=== PATIENT | female | born 1930 | race Caucasian/White ===

== ENCOUNTER 2016-07-09 22:43 | Inpatient (IN) | payer OTHER, MEDICARE ==
[~2016-07-09] VITALS: Ht 160 cm; Wt 72.0 kg
[~2016-07-09 22:43] MED LIST: ADVA250A INH; ADVAI250I INH; AGGR20025 PO; COLA100C PO; DUONI INH; DUONI NEB; FISH1000 PO; FURO20 PO; GUAI600 PO; HEPA10KP SQ; KCL10C PO; LEVO.05 PO; NYSTT TOP; OMEP20CA5 PO; PRED20 PO; THERM PO; TIOT18I INH; Z.0.OXYGEN INH; Z.0.OXYGENDME NC
[2016-07-09 22:45] VITALS: O2SAT 100
[2016-07-09 22:47] VITALS: BP 144/66; PULSE 97; RESP 3; RESP 30; TEMP 98.1; O2SAT 99
[2016-07-09] MEDS ORDERED: methylPREDNISolone SOD SUCC 125 MG/2 ML VIAL IVP ONE (23:15)
[2016-07-09] MEDS ORDERED: LEVOFLOXACIN 750 MG PREMIX INJ 150 ML IV ONE (23:15)
[2016-07-09] MEDS: RESP: ALBUTEROL 2.5 MG/IPRATROPIUM 0.5 MG NEB (SCH) INH (23:27)
[2016-07-09 23:36] LABS: AUTOMATED NEUTROPHIL # 7.4 TH/MM3 (1.8-7.7); BASOPHIL % 0.2 % (0.0-2.0); EOSINOPHIL # 0.4 TH/MM3 (0-0.4); EOSINOPHIL % 4.2 % (0.0-4.0); HEMATOCRIT 37.5 % (35.0-46.0); HEMO FLAGS DIFF FINAL; LYMPH % 7.1 % (9.0-44.0); LYMPHOCYTE # 0.7 TH/MM3 (1.0-4.8); MEAN CELL VOLUME 81.9 FL (80.0-100.0); MEAN CORPUSCULAR HEMOGLOBIN 25.3 PG (27.0-34.0); MEAN CORPUSCULAR HGB CONC 30.8 % (32.0-36.0); MONO % 8.4 % (0.0-8.0); NEUT % 80.1 % (16.0-70.0); PLATELET COUNT 207 TH/MM3 (150-450); RED BLOOD COUNT 4.58 MIL/MM3 (4.00-5.30); RED CELL DISTRIBUTION WIDTH 17.5 % (11.6-17.2); WHITE BLOOD COUNT 9.3 TH/MM3 (4.0-11.0)
--- NOTE | 2016-07-09 23:37 | RADRPT ---
EXAM DATE/TIME: 07/09/2016 23:06 [place] COMPARISON: CHEST SINGLE AP, September 27, 2014, 8:00. CHEST SINGLE AP, October 01, 2014, 6:30. INDICATIONS : Shortness of breath. MEDICAL HISTORY : Congestive heart failure. Chronic obstructive pulmonary disease. Emphysema. SURGICAL HISTORY : None. ENCOUNTER: Initial ACUITY: 1 day PAIN SCORE: Non-responsive. LOCATION: Bilateral chest FINDINGS: A single AP erect view of the chest was obtained and demonstrates coarse opacity at the right medial lung base. The lungs appear hyperinflated and there is mild cardiomegaly. Atherosclerotic changes are present in the aorta with no perihilar edema. There is no definite effusion. There are multiple over lying electrocardiogram leads and oxygen tubing. CONCLUSION: 1. Coarse opacity at the right medial lung base most consistent with scarring. 2. Mild cardiomegaly with no pulmonary edema. Kahlil Mora MD on July 09, 2016 at 23:34 Board Certified Radiologist. This report was verified electronically.
[2016-07-09] MEDS: SODIUM CHLORIDE 0.9% FLUSH 5 ML FLUSH IVF PRN (23:41)
[2016-07-09 23:47] LABS: APTT (PATIENT) 27.3 SEC (24.3-30.1); PROTHROMBIN TIME - PATIENT 11.2 SEC (9.8-11.6)
[2016-07-09] MEDS ORDERED: FURO20TA PO (23:52)
[2016-07-09] MEDS ORDERED: BIOT50005 PO (23:52)
[2016-07-09] MEDS ORDERED: FISHCAP4 PO (23:52)
[2016-07-09] MEDS ORDERED: PRED5TAB PO (23:52)
[2016-07-09] MEDS ORDERED: ASPI-110 PO (23:52)
[2016-07-09] MEDS ORDERED: IPRASOL INH (23:52)
[2016-07-09] MEDS ORDERED: POTA10CA PO (23:52)
[2016-07-09] MEDS ORDERED: VITA500C9 CHEW (23:52)
[2016-07-09] MEDS ORDERED: DOCU100C PO (23:52)
[2016-07-09] MEDS ORDERED: OMEP20TA PO (23:52)
[2016-07-09] MEDS ORDERED: AGGR20025 PO (23:52)
[2016-07-09] MEDS ORDERED: LEVEMIR SQ (23:52)
[2016-07-09] MEDS ORDERED: MUCI30TA2 PO (23:52)
[2016-07-09] MEDS ORDERED: MULT-120 PO (23:52)
[2016-07-09] MEDS ORDERED: PRAV40TA2 PO (23:52)
[2016-07-09 23:57] LABS: ANION GAP 6 MEQ/L (5-15); AST (GOT) 69 U/L (15-37); BICARBONATE 35.9 MEQ/L (21.0-32.0); BLOOD UREA NITROGEN 15 MG/DL (7-18); CHLORIDE 97 MEQ/L (98-107); GLOMERULAR FILTRATION RATE 37 ML/MIN (>89); POTASSIUM 5.3 MEQ/L (3.5-5.1); SODIUM (NA) 139 MEQ/L (136-145)
[2016-07-10] VITALS (18 sets, daily range): BP systolic 112–151; BP diastolic 56–80; PULSE 76–99; RESP 18–32; TEMP 97.4–98.9; O2SAT 93–100
[2016-07-10 00:06] LABS: ALKALINE PHOSPHATASE 92 U/L (45-117); ALT (GPT) 39 U/L (10-53); CREATINE KINASE 129 U/L (26-192); TOTAL BILIRUBIN ADULT 0.6 MG/DL (0.2-1.0)
[2016-07-10 00:33] LABS: BLOOD, URINE NEG (NEG); COMMENT (UR) CULT NOT INDICATED; CULTURE IF INDICATED CULT NOT INDICATED; GLUCOSE,URINE NEG (NEG); GRANULAR CAST, URINE 1 /lpf; HYALINE CAST, URINE 5 /lpf (RARE); KETONE, URINE NEG (NEG); NITRITE,URINE NEG (NEG); PH, URINE 5.5 (5.0-8.5); URINE COLOR LIGHT-YELLOW (YELLW/STRAW)
[2016-07-10 00:39] LABS: CKMB 0.9 NG/ML (0.5-3.6)
--- NOTE | 2016-07-10 01:01 | PD ---
HPI Chief Complaint: Respiratory Distress Time Seen by Provider: 22:53 Travel History International Travel<30 days: No Contact w/Intl Traveler<30days: No Traveled to known affect area: No History of Present Illness HPI Patient is an 85-year-old female with history of COPD, CHF, who comes in complaining of shortness of breath. She has been feeling short of breath for the past 2 days, and got worse today. Per EMS her oxygen saturation on arrival on room air was in the 70s. She improved to the high 80s/low 90s on CPAP. Per EMS she had some wheezing and crackles in her lungs. She was given 3 albuterol treatments by EMS, no steroids. She denies any chest pain. She has noticed some swelling in her legs. She denies any nausea or vomiting. She denies any abdominal pain. She has had multiple issues with breathing in the past, her last admission she required intubation. She states she does not want to be intubated if she has difficulty with breathing. Her daughter reports that she had a fever earlier this week, but that has resolved. She does have a sick contact with her great granddaughter visited with a cold. PFSH Past Medical History Arthritis: Yes Asthma: Yes Autoimmune Disease: No Blood Disorders: No Anxiety: No Depression: No Heart Rhythm Problems: Yes Cancer: No Cardiovascular Problems: Yes (chf) High Cholesterol: Yes Chemotherapy: No Chest Pain: Yes Congestive Heart Failure: Yes COPD: Yes Cerebrovascular Accident: Yes Diabetes: Yes Patient Takes Glucophage: No Diminished Hearing: No Endocrine: Yes Gastrointestinal Disorders: No GERD: No Genitourinary: No Headaches: No Hepatitis: No Hiatal Hernia: No Hypertension: Yes Immune Disorder: No Implanted Vascular Access Dvce: No Kidney Stones: No Musculoskeletal: Yes Neurologic: Yes Psychiatric: No Reproductive: No Migraines: No Myocardial Infarction: No Radiation Therapy: No Renal Failure: No Seizures: No Sickle Cell Disease: No Sleep Apnea: No Thyroid Disease: No Ulcer: No PNEUMOCCOCAL Vaccine (Year): 1 ?: Not Menopausal: Yes Past Surgical History Abdominal Surgery: Yes (EXPLORATORY LAP EXCISION OF FLOATING TUMOR) AICD: No Appendectomy: No Arteriovenous Shunt: No Cardiac Surgery: No Cholecystectomy: No Ear Surgery: No Endocrine Surgery: No Eye Surgery: Yes (BILATERAL cataracts removed) Genitourinary Surgery: No Gynecologic Surgery: Yes (HYSTERECTOMY-TOTAL) Hysterectomy: Yes Insulin Pump: No Joint Replacement: No Neurologic Surgery: No Oral Surgery: No Pacemaker: No Thoracic Surgery: No Other Surgery: Yes Social History Alcohol Use: No Tobacco Use: No (quit a long time ago) Substance Use: No Allergies-Medications (Allergen,Severity, Reaction): Coded Allergies: Penicillin (Verified Allergy, Severe, Hives, 09/19/14) Vitamin B12 (Verified Allergy, Severe, ALLERGIC TO SHOT ONLY - HIVES, ) Reported Meds & Prescriptions Reported Meds & Active Scripts Active Reported Pravastatin 40 Mg Tab 40 Mg PO DAILY Prednisone 5 Mg Tab 5 Mg PO DAILY Biotin 5,000 Mcg Cap 10,000 Mcg PO DAILY Vitamin C (Ascorbic Acid) 500 Mg Chew 500 Mg CHEW DAILY Aspirin 81 (Aspirin) 81 Mg Tabdr 81 Mg PO DAILY Aggrenox (Dipyridamole/Aspirin) 200-25 Mg Cap 1 Cap PO BID Duoneb (Ipratropium-Albuterol Neb) 0.5-2.5 Mg/3 Ml Neb 1 Nebule INH Q8HR NEB Levemir Inj (Insulin Detemir) 1,000 unit/ 10 ML Vial 9 Units SQ HS Do not mix with any other Insulin. Potassium Chloride ER (Potassium Chloride) 10 Meq Cap 10 Meq PO BID Furosemide 20 Mg Tab 20 Mg PO BID Omeprazole 20 Mg Tab 20 Mg PO DAILY Fish Oil + D3 (Fish Oil-Cholecalciferol) 1,200-1,000 Mg-Unit Cap 1 Cap PO BID Multivitamin Women (Multiple Vitamins W/ Minerals) 1 Tab Tab 1 Tab PO DAILY Docusate Sodium 100 Mg Cap 100 Mg PO DAILY Mucinex DM (Dextromethorphan-Guaifenesin) 30-600 Mg Tab 1 Tab PO BID PRN Review of Systems Except as stated in HPI: all other systems reviewed are Neg General / Constitutional: Positive: Fever HENT: No: Headaches, Lightheadedness Cardiovascular: No: Chest Pain or Discomfort Respiratory: Positive: Shortness of Breath, Wheezing Gastrointestinal: No: Nausea, Vomiting, Abdominal Pain Musculoskeletal: Positive: Edema, No: Pain Skin: No Rash, No Change in Pigmentation Neurologic: No: Weakness, Dizziness Physical Exam Narrative GENERAL: Awake and alert, appears lethargic. SKIN: Warm and dry. HEAD: Atraumatic. Normocephalic. EYES: Pupils equal and round. No scleral icterus. ENT: Mucous membranes pink and moist. NECK: Trachea midline. No JVD. CARDIOVASCULAR: Regular rate and rhythm. No murmur appreciated. RESPIRATORY: Diffuse wheezing throughout both lungs. Tachypnea. GASTROINTESTINAL: Abdomen soft, non-tender, nondistended. MUSCULOSKELETAL: No obvious deformities. No clubbing. No cyanosis. Bilateral 2 + pitting edema of the lower extremities. No calf tenderness. NEUROLOGICAL: Awake and alert. No obvious cranial nerve deficits. Motor grossly within normal limits. Normal speech. PSYCHIATRIC: Appropriate mood and affect; insight and judgment normal. Data Data Last Documented VS Vital Signs Date Time Temp Pulse Resp B/P Pulse Ox O2 Delivery O2 Flow Rate FiO2 07/10/16 00:30 99 CPAP 60 07/10/16 00:00 95 18 125/69 07/09/16 22:47 98.1 Orders Complete Blood Count With Diff (07/09/16 23:) Comprehensive Metabolic Panel (07/09/16 23:) B-Type Natriuretic Peptide (07/09/16 23:) Act Partial Throm Time (Ptt) (07/09/16 23:) Prothrombin Time / Inr (Pt) (07/09/16 23:01) Ckmb (Isoenzyme) Profile (07/09/16 23:) Troponin I (07/09/16 23:01) Urinalysis - C+S If Indicated (07/09/16 23:) Ua Includes Microscopic (07/09/16 23:) Blood Culture (07/09/16 23:01) Iv Access Insert/Monitor (07/09/16 23:) Electrocardiogram (07/09/16 23:) Ecg Monitoring (07/09/16 23:) Oximetry (07/09/16 23:01) Oxygen Administration (07/09/16 23:01) Chest, Single Ap (07/09/16 23:01) Cath For Specimen (07/09/16 23:01) Sodium Chloride 0.9% Flush (Ns Flush) (07/09/16 23:15) Methylprednisolone So Succ Inj (Solumedr (07/09/16 23:15) Albuterol-Ipratropium Neb (Duoneb Neb) (07/09/16 23:15) Levofloxacin 750 Mg Premix Inj (Levaquin (07/09/16 23:15) Lactic Acid (07/09/16 23:01) CKMB (07/09/16 23:09) CKMB% (07/09/16 23:09) Labs Laboratory Tests Test 07/09/16 07/09/16 07/10/16 23:09 23:22 00:05 Prothrombin Time 11.2 SEC Prothromb Time International 1.0 RATIO Ratio Activated Partial 27.3 SEC Thromboplast Time White Blood Count 9.3 TH/MM3 Red Blood Count 4.58 MIL/MM3 Hemoglobin 11.6 GM/DL Hematocrit 37.5 % Mean Corpuscular Volume 81.9 FL Mean Corpuscular Hemoglobin 25.3 PG Mean Corpuscular Hemoglobin 30.8 % Concent Red Cell Distribution Width 17.5 % Platelet Count 207 TH/MM3 Mean Platelet Volume 9.8 FL Neutrophils (%) (Auto) 80.1 % Lymphocytes (%) (Auto) 7.1 % Monocytes (%) (Auto) 8.4 % Eosinophils (%) (Auto) 4.2 % Basophils (%) (Auto) 0.2 % Neutrophils # (Auto) 7.4 TH/MM3 Lymphocytes # (Auto) 0.7 TH/MM3 Monocytes # (Auto) 0.8 TH/MM3 Eosinophils # (Auto) 0.4 TH/MM3 Basophils # (Auto) 0.0 TH/MM3 CBC Comment DIFF FINAL Differential Comment Sodium Level 139 MEQ/L Potassium Level 5.3 MEQ/L Chloride Level 97 MEQ/L Carbon Dioxide Level 35.9 MEQ/L Anion Gap 6 MEQ/L Blood Urea Nitrogen 15 MG/DL Creatinine 1.36 MG/DL Estimat Glomerular Filtration 37 ML/MIN Rate Random Glucose 151 MG/DL Calcium Level 8.3 MG/DL Total Bilirubin 0.6 MG/DL Aspartate Amino Transf 69 U/L (AST/SGOT) Alanine Aminotransferase 39 U/L (ALT/SGPT) Alkaline Phosphatase 92 U/L Total Creatine Kinase 129 U/L Creatine Kinase MB 0.9 NG/ML Troponin I LESS THAN 0.02 NG/ML B-Type Natriuretic Peptide 99 PG/ML Total Protein 7.9 GM/DL Albumin 3.3 GM/DL Lactic Acid Level 1.8 mmol/L Urine Color LIGHT-YELLOW Urine Turbidity CLEAR Urine pH 5.5 Urine Specific [place] 1.007 Urine Protein NEG mg/dL Urine Glucose (UA) NEG mg/dL Urine Ketones NEG mg/dL Urine Occult Blood NEG Urine Nitrite NEG Urine Bilirubin NEG Urine Urobilinogen LESS THAN 2.0 MG/DL Urine Leukocyte Esterase NEG Urine RBC LESS THAN 1 /hpf Urine WBC LESS THAN 1 /hpf Urine Hyaline Casts 5 /lpf Urine Granular Casts 1 /lpf Microscopic Urinalysis Comment CULT NOT INDICATED MDM Medical Decision Making Medical Screen Exam Complete: Yes Emergency Medical Condition: Yes Medical Record Reviewed: Yes Interpretation(s) ECG shows sinus rhythm at 90. No ST elevation. Normal intervals. Differential Diagnosis COPD exacerbation versus pneumonia versus CHF versus ACS Narrative Course Patient is an 85-year-old female who comes in complaining of shortness of breath. Patient is on BiPAP, was started on CPAP by EMS. Lungs show diffuse wheezing. Patient connected to the shirring machine operator, IV was established by EMS. Labs sent show no acute abnormalities. Chest x-ray performed shows cardiomegaly, no infiltrates. Patient given 2 DuoNeb nebs as well as 125 mg of Solu-Medrol. She received 3 albuterol treatments by EMS. Given Levaquin due to history of fever earlier this week. Patient was also given 63 mg of Lasix by EMS prior to arrival. Patient improved on BiPAP. She became more awake and alert. Patient admitted for further management. Diagnosis Primary Impression: COPD (chronic obstructive pulmonary disease) Qualified Code: J44.1 - Chronic obstructive pulmonary disease with acute exacerbation Admitting Information Admitting Physician Requests: it Ruma Palacios MD Jul 10, 2016 01:01
[2016-07-10] MEDS ORDERED: SODIUM CHLORID 0.9% 500 ML INJ 500 ML IV ONE (01:30)
[2016-07-10] MEDS ORDERED: DEXTROSE 50% IN WATER 50 ML VIAL(D50) IV PUSH PRN (01:30)
[2016-07-10] MEDS ORDERED: RESP: ALBUTEROL 1.25 MG/3 ML NEB (PRN) NEB (01:30)
[2016-07-10] MEDS ORDERED: GLUCAGON 1 MG/ML VIAL OTHER PRN (01:30)
--- NOTE | 2016-07-10 01:35 | HHI.HP ---
[facility] Service [place] [facility] Primary Care Physician Jeff Olivas MD Admission Diagnosis copd exacerbation Diagnoses: (1) COPD with acute exacerbation Diagnosis: Principal Chief Complaint: shortness of breath Travel History International Travel<30 Days: No Contact w/Intl Traveler <30 Da: No Traveled to Known Affected Are: No History of Present Illness patient is a 85 y/o female who was brought to ER with worsening sob. she says that she's had difficulty breathing for about a week. she has productive cough of yellowish sputum. she reports on and off fever over the past few days.according to ER, she was found to have a O2 sat of 70's at the time of EMS arrival- she was on BiPaP at the time of my evaluation.she was noted to have a rash on the chest and abdomen and she's complaining of itching over these areas. Review of Systems Constitutional: COMPLAINS OF: Fever, DENIES: Weight loss, Chills, Night Sweats Eyes: DENIES: Blurred vision, Diplopia, Vision loss, Double Vision Ears, nose, mouth, throat: DENIES: Tinnitus, Vertigo, Throat pain, Epistaxis Respiratory: COMPLAINS OF: Cough, Sputum production, Shortness of breath Cardiovascular: DENIES: Chest pain, Palpitations, Syncope, Dyspnea on Exertion , PND, Lower Extremity Edema, Orthopnea, Claudication Gastrointestinal: DENIES: Abdominal pain, Black stools, Bloody stools, Constipation, Diarrhea, Nausea, Vomiting, Difficulty Swallowing, Anorexia Genitourinary: DENIES: Urinary frequency, Urgency, Hematuria, Dysuria Musculoskeletal: DENIES: Joint pain, Muscle aches, Stiffness, Joint Swelling Integumentary: COMPLAINS OF: Abnormal pigmentation, DENIES: Rash Neurologic: DENIES: Abnormal gait, Headache, Localized weakness, Paresthesias, Seizures, Speech Problems, Tremor, Poor Balance Psychiatric: DENIES: Anxiety, Confusion, Mood changes, Depression, Hallucinations, Agitation, Suicidal Ideation, Homicidal Ideation, Delusions Past Family Social History Past Medical History hypertension diabetes mellitus COPD dyslipidemia history of CVA Past Surgical History cataract surgery hysterectomy Reported Medications Pravastatin 40 Mg Tab 40 Mg PO DAILY Prednisone 5 Mg Tab 5 Mg PO DAILY Biotin 5,000 Mcg Cap 10,000 Mcg PO DAILY Vitamin C (Ascorbic Acid) 500 Mg Chew 500 Mg CHEW DAILY Aspirin 81 (Aspirin) 81 Mg Tabdr 81 Mg PO DAILY Aggrenox (Dipyridamole/Aspirin) 200-25 Mg Cap 1 Cap PO BID Duoneb (Ipratropium-Albuterol Neb) 0.5-2.5 Mg/3 Ml Neb 1 Nebule INH Q8HR NEB Levemir Inj (Insulin Detemir) 1,000 unit/ 10 ML Vial 9 Units SQ HS Do not mix with any other Insulin. Potassium Chloride ER (Potassium Chloride) 10 Meq Cap 10 Meq PO BID Furosemide 20 Mg Tab 20 Mg PO BID Omeprazole 20 Mg Tab 20 Mg PO DAILY Fish Oil + D3 (Fish Oil-Cholecalciferol) 1,200-1,000 Mg-Unit Cap 1 Cap PO BID Multivitamin Women (Multiple Vitamins W/ Minerals) 1 Tab Tab 1 Tab PO DAILY Docusate Sodium 100 Mg Cap 100 Mg PO DAILY Mucinex DM (Dextromethorphan-Guaifenesin) 30-600 Mg Tab 1 Tab PO BID PRN Allergies: Coded Allergies: Penicillin (Verified Allergy, Severe, Hives, 09/19/14) Vitamin B12 (Verified Allergy, Severe, ALLERGIC TO SHOT ONLY - HIVES, ) Active Ordered Medications Current Medications IV Flush (NS Flush) 2 ml UNSCH PRN IVF FLUSH AFTER USING IV ACCESS Last administered on 07/09/16at 23:41; Start 07/09/16 at 23:15 Methylprednisolone Sodium Succinate (SoluMEDROL INJ) 125 mg ONCE ONCE IVP Last administered on 07/09/16at 23:41; Start 07/09/16 at 23:15; Stop 07/09/16 at 23:16; Status DC Albuterol/ Ipratropium 1 ampule 1 ampule Q15M INH Last administered on at 23:27; Start 07/09/16 at 23:15; Stop 07/09/16 at 23:31; Status DC Levofloxacin/ Dextrose (Levaquin 750 Mg Premix Inj) 150 ml @ 100 mls/hr ONCE ONCE IV Last administered on 07/09/16at 23:40; Start 07/09/16 at 23:15; Stop 07/10/16 at 00:44; Status DC Social History quit smoking years ago. lives with the daughter. Physical Exam Vital Signs Vital Signs Date Time Temp Pulse Resp B/P Pulse Ox O2 Delivery O2 Flow Rate FiO2 07/10/16 00:30 99 CPAP 60 07/10/16 00:00 95 18 125/69 99 CPAP 07/09/16 22:47 98.1 97 30 144/66 99 Physical Exam GENERAL:elderly female with sob- on BiPaP SKIN: rash noted on the chest and abdomen/ and groins HEAD: Atraumatic. Normocephalic. No temporal or scalp tenderness. EYES: Pupils equal round and reactive. Extraocular motions intact. No scleral icterus. No injection or drainage. ENT: Nose without bleeding, purulent drainage or septal hematoma. Throat without erythema, tonsillar hypertrophy or exudate. Uvula midline. Airway patent. NECK: Trachea midline. No JVD or lymphadenopathy. Supple, nontender, no meningeal signs. CARDIOVASCULAR: Regular rate and rhythm without murmurs, gallops, or rubs. RESPIRATORY:bilateral wheezing GASTROINTESTINAL: Abdomen soft, non-tender, nondistended. No hepato-splenomegaly , or palpable masses. No guarding. MUSCULOSKELETAL: Extremities without clubbing, cyanosis, or edema. No joint tenderness, effusion, or edema noted. No calf tenderness. Negative Homans sign bilaterally. NEUROLOGICAL: Awake and alert. Laboratory Laboratory Tests Test 07/09/16 07/09/16 07/10/16 23:09 23:22 00:05 Prothrombin Time 11.2 Prothromb Time International 1.0 Ratio Activated Partial 27.3 Thromboplast Time White Blood Count 9.3 Red Blood Count 4.58 Hemoglobin 11.6 Hematocrit 37.5 Mean Corpuscular Volume 81.9 Mean Corpuscular Hemoglobin 25.3 Mean Corpuscular Hemoglobin 30.8 Concent Red Cell Distribution Width 17.5 Platelet Count 207 Mean Platelet Volume 9.8 Neutrophils (%) (Auto) 80.1 Lymphocytes (%) (Auto) 7.1 Monocytes (%) (Auto) 8.4 Eosinophils (%) (Auto) 4.2 Basophils (%) (Auto) 0.2 Neutrophils # (Auto) 7.4 Lymphocytes # (Auto) 0.7 Monocytes # (Auto) 0.8 Eosinophils # (Auto) 0.4 Basophils # (Auto) 0.0 CBC Comment DIFF FINAL Differential Comment Sodium Level 139 Potassium Level 5.3 Chloride Level 97 Carbon Dioxide Level 35.9 Anion Gap 6 Blood Urea Nitrogen 15 Creatinine 1.36 Estimat Glomerular Filtration 37 Rate Random Glucose 151 Calcium Level 8.3 Total Bilirubin 0.6 Aspartate Amino Transf 69 (AST/SGOT) Alanine Aminotransferase 39 (ALT/SGPT) Alkaline Phosphatase 92 Total Creatine Kinase 129 Creatine Kinase MB 0.9 Troponin I LESS THAN 0.02 B-Type Natriuretic Peptide 99 Total Protein 7.9 Albumin 3.3 Lactic Acid Level 1.8 Urine Color LIGHT-YELLOW Urine Turbidity CLEAR Urine pH 5.5 Urine Specific [place] 1.007 Urine Protein NEG Urine Glucose (UA) NEG Urine Ketones NEG Urine Occult Blood NEG Urine Nitrite NEG Urine Bilirubin NEG Urine Urobilinogen LESS THAN 2.0 Urine Leukocyte Esterase NEG Urine RBC LESS THAN 1 Urine WBC LESS THAN 1 Urine Hyaline Casts 5 Urine Granular Casts 1 Microscopic Urinalysis Comment CULT NOT INDICATED Date/Time Procedure Status Source Growth 07/09/16 23:18 Aerobic Blood Culture Received Blood Peripheral Pending 07/09/16 23:18 Anaerobic Blood Culture Received Blood Peripheral Pending Result Diagram: 07/09/16 2309 07/09/162308 Imaging Last Impressions Chest X-Ray 07/09/162300 Signed Impressions: Service Date/Time: Saturday, July 09, 2016 23:06 - CONCLUSION: 1. Coarse opacity at the right medial lung base most consistent with scarring. 2. Mild cardiomegaly with no pulmonary edema. Kahlil Mora MD Assessment and Plan Assessment and Plan A/P -acute respiratory failure due to COPD exacerbation currently on BiPaP- will continue with IV steroid and antibiotic- neb treatment - -acute kidney injury with mild hyperkalemia start gentle IV hydration- hold lasix and potassium supplements- monitor renal function- BMP in am -diabetes mellitus; resume long acting insulin- accu-check with SSI -history of CVA and dyslipidemia; resume home meds- -rash- will apply Clotrimazole cream on the groins- benadryl as needed -DVT prophylaxis with SCD's Discussed Condition With ER physician and the patient. Physician Certification 2 Midnight Certification Type: Admission for Inpatient Services Order for Inpatient Services The services are ordered in accordance with Medicare regulations or non- Medicare payer requirements, as applicable. In the case of services not specified as inpatient-only, they are appropriately provided as inpatient services in accordance with the 2-midnight benchmark. Estimated LOS (days): 2 days is the estimated time the patient will need to remain in the hospital, assuming treatment plan goals are met and no additional complications. Post-Hospital Plan: Not yet determined Della Sanders MD Jul 10, 2016 01:35
[2016-07-10] MEDS ORDERED: diphenhydrAMINE HCL 25 MG CAP PO PRN (01:45)
[2016-07-10] MEDS ORDERED: ACETAMINOPHEN 325 MG TAB PO PRN (01:45)
[2016-07-10] MEDS: RESP: ALBUTEROL 2.5 MG/IPRATROPIUM 0.5 MG NEB (SCH) NEB ×5 (03:00→20:16)
[2016-07-10] MEDS: CHLORHEXIDINE GLUCONATE 2 % 1 PACK (2 CLOTHS)(taper/protocol) TOP SCH (03:56)
[2016-07-10] MEDS ORDERED: CHLORHEXIDINE GLUCONATE 2 % 1 PACK (2 CLOTHS)(extra cloths) TOP PRN (04:00)
[2016-07-10] MEDS: methylPREDNISolone SOD SUCC 40 MG/1 ML VIAL IV PUSH SCH ×3 (05:14→22:14)
[2016-07-10] MEDS: INSULIN ASPART SUPPLEMENTAL SCALE SQ SCH ×4 (05:15→20:10)
--- NOTE | 2016-07-10 07:35 | EKG ---
Date Performed: 07/10/2016 Time Performed: 00:40:21 PTAGE: 85 years EKG: Sinus rhythm SEPTAL MYOCARDIAL INFARCTION ABNORMAL ECG PREVIOUS TRACING : 09/19/2014 01.29 No significant change from previous tracing noted. DOCTOR: Adama Paula Interpretating Date/Time 07/10/2016 07:34:23
[2016-07-10] MEDS: PRAVASTATIN SOD 40 MG TAB PO SCH (08:32)
[2016-07-10] MEDS: CLOTRIMAZOLE 1% CREAM 15 GM TOPICAL SCH ×2 (08:32→20:14)
[2016-07-10] MEDS: ASPIRIN EC 81 MG TABEC PO SCH (08:32)
[2016-07-10] MEDS: PANTOPRAZOLE SOD 20 MG DELAYED RELEASE TAB PO SCH (08:32)
--- NOTE | 2016-07-10 09:29 | HHI.PR ---
Subjective Remarks Patient with sob, coughing yellow sputum/. No chest pain. No n/v/d/c. Says she feels improved comparing with yesterday. Currently on ventimask fio1 50% 6L, wean as tolerated. Objective Vitals Vital Signs Date Time Temp Pulse Resp B/P Pulse Ox O2 Delivery O2 Flow Rate FiO2 07/10/16 08:42 94 Venturi Mask 07/10/16 08:00 97.9 92 26 151/66 100 07/10/16 06:00 76 07/10/16 04:14 99 40 07/10/16 04:00 98.5 80 26 120/60 98 07/10/16 04:00 80 07/10/16 03:29 98.9 92 26 146/64 100 07/10/16 03:18 100 07/10/16 02:15 99 60 07/10/16 00:30 99 CPAP 60 07/10/16 00:00 95 18 125/69 99 CPAP 07/09/16 22:47 98.1 97 30 144/66 99 07/09/16 22:45 100 07/09/16 22:45 100 60 I/O 07/09/16 07/09/16 07/09/16 07/10/16 07/10/16 07/10/16 07:00 15:00 23:00 07:00 15:00 23:00 Intake Total 122 ml Balance 122 ml Intake IV Total 122 ml Result Diagram: 07/09/16230807/09/162308 Imaging Last Impressions Chest X-Ray 07/09/162300 Signed Impressions: Service Date/Time: Saturday, July 09, 2016 23:06 - CONCLUSION: 1. Coarse opacity at the right medial lung base most consistent with scarring. 2. Mild cardiomegaly with no pulmonary edema. Kahlil Mora MD Objective Remarks GENERAL: Elderly, frail female with sob- on venti mask, appears sob. SKIN: rash noted on the chest and abdomen/ and groins HEAD: Atraumatic. Normocephalic. No temporal or scalp tenderness. EYES: Pupils equal round and reactive. Extraocular motions intact. No scleral icterus. No injection or drainage. ENT: Nose without bleeding, purulent drainage or septal hematoma. Throat without erythema, tonsillar hypertrophy or exudate. Uvula midline. Airway patent. NECK: Trachea midline. No JVD or lymphadenopathy. Supple, nontender, no meningeal signs. CARDIOVASCULAR: Regular rate and rhythm without murmurs, gallops, or rubs. RESPIRATORY: Bilateral wheezing, bronchial sounds, sob, cough. No accessory muscle use. GASTROINTESTINAL: Abdomen soft, non-tender, nondistended. No hepato-splenomegaly , or palpable masses. No guarding. MUSCULOSKELETAL: Extremities without clubbing, cyanosis, or edema. No joint tenderness, effusion, or edema noted. No calf tenderness. Negative Homans sign bilaterally. NEUROLOGICAL: Awake and alert. A/P Problem List: (1) COPD with acute exacerbation ICD Code: J44.1 Status: Acute Assessment and Plan Acute respiratory failure due to COPD exacerbation- requiring BiPAP, currently on venti mask FiO2 50% on 6L, continue to gloria off as tolerated. Will continue with IV steroid and antibiotic- neb treatment. Add mucomist and acapella. Add incentive spirometry. Acute kidney injury with mild hyperkalemia-on gentle IV hydration- hold lasix and potassium supplements- monitor renal function- BMP in am Diabetes mellitus; resume long acting insulin- accu-check with SSI History of CVA and dyslipidemia; resume home meds- Rash- will apply Clotrimazole cream on the groins- benadryl as needed DVT prophylaxis with SCD's Discussed Condition With The patient,ICU nurse. Ruba Rodriguez MD Jul 10, 2016 09:29
[2016-07-10] MEDS ORDERED: ALBU1AER5 INH (11:39)
[2016-07-10] MEDS: RESP: ACETYLCYSTEINE 20% 30 ML NEB NEB SCH ×3 (12:00→23:42)
[2016-07-10 12:15] LABS: BICARBONATE 35.1 MEQ/L (21.0-32.0)
[2016-07-10] MEDS ORDERED: TEMAZEPAM 15 MG CAP PO PRN (14:15)
[2016-07-10] MEDS ORDERED: BISACODYL 10 MG SUPP PR PRN (14:15)
[2016-07-10] MEDS ORDERED: MAGNESIUM HYDROXIDE SUSP 30 ML CUP PO PRN (14:15)
[2016-07-10] MEDS ORDERED: ONDANSETRON HCL 4 MG/2 ML VIAL IVP PRN (14:15)
[2016-07-10] MEDS ORDERED: PROCHLORPERAZINE 25 MG SUPP PR PRN (14:15)
[2016-07-10] MEDS ORDERED: SENNOSIDES 8.6 MG TAB PO PRN (14:15)
[2016-07-10] MEDS: DIPYRIDAMOLE/ASPIRIN 200 MG/25 MG CAP PO SCH ×2 (15:32→20:08)
[2016-07-10] MEDS ORDERED: FUROSEMIDE 20 MG/2 ML VIAL IV PUSH ONE (17:30)
[2016-07-10 19:55] LABS: BLOOD, URINE NEG (NEG); COMMENT (UR) CULT NOT INDICATED; CULTURE IF INDICATED CULT NOT INDICATED; GLUCOSE,URINE NEG (NEG); KETONE, URINE NEG (NEG); MUCUS URINE FEW /lpf (OCC); NITRITE,URINE NEG (NEG); SQUAMOUS EPITHELIAL CELL URINE <1 /hpf (0-5); URINE COLOR YELLOW (YELLW/STRAW)
[2016-07-10] MEDS: INSULIN DETEMIR 100 UNITS/ML VIAL SQ SCH (20:09)
[2016-07-10] MEDS: LEVOFLOXACIN 250 MG PREMIX INJ 50 ML IV SCH (22:14)
[2016-07-10] MEDS: RESP: ALBUTEROL 2.5 MG/IPRATROPIUM 0.5 MG NEB (PRN) NEB (23:42)
[2016-07-11] VITALS (21 sets, daily range): BP systolic 109–142; BP diastolic 54–64; PULSE 68–92; RESP 20–33; TEMP 96.9–98.6; O2SAT 90–100
[2016-07-11] MEDS: RESP: ALBUTEROL 2.5 MG/IPRATROPIUM 0.5 MG NEB (PRN) NEB ×2 (03:11→23:27)
[2016-07-11] MEDS: RESP: ACETYLCYSTEINE 20% 30 ML NEB NEB SCH ×6 (03:11→23:27)
[2016-07-11] MEDS: CHLORHEXIDINE GLUCONATE 2 % 1 PACK (2 CLOTHS)(taper/protocol) TOP SCH (04:00)
[2016-07-11] MEDS: methylPREDNISolone SOD SUCC 40 MG/1 ML VIAL IV PUSH SCH ×3 (06:00→23:55)
[2016-07-11] MEDS: INSULIN ASPART SUPPLEMENTAL SCALE SQ SCH ×4 (07:00→20:24)
--- NOTE | 2016-07-11 07:58 | HHI.PR ---
Subjective Remarks With sob, currently on BiPAP say she feels better. She is tired and sleepy. No pain. + cough productive of yellow sputum. No chest pain. No fever or chills. Objective Vitals Vital Signs Date Time Temp Pulse Resp B/P Pulse Ox O2 Delivery O2 Flow Rate FiO2 07/11/16 06:00 68 07/11/16 04:19 95 Venturi Mask 50 07/11/16 04:00 98 Bi-Pap 40 07/11/16 04:00 97.5 78 20 109/54 98 07/11/16 04:00 78 07/11/16 03:50 95 40 07/11/16 02:00 80 07/11/16 01:00 98 40 07/11/16 00:00 100 Venturi Mask 50 07/11/16 00:00 92 07/11/16 00:00 98.6 92 26 135/64 100 07/10/16 22:00 85 07/10/16 20:20 96 Nasal Cannula 4.00 07/10/16 20:00 99 07/10/16 20:00 99 Venturi Mask 50 07/10/16 20:00 98.9 99 24 112/80 99 07/10/16 18:00 99 07/10/16 17:27 94 40 07/10/16 16:00 97.6 99 32 130/56 94 07/10/16 16:00 99 07/10/16 16:00 94 Bi-Pap 40 07/10/16 14:00 85 07/10/16 12:00 93 Bi-Pap 40 07/10/16 12:00 88 07/10/16 12:00 97.4 88 23 134/58 93 07/10/16 10:00 89 07/10/16 08:42 94 Venturi Mask 07/10/16 08:00 97.9 92 26 151/66 100 07/10/16 08:00 92 I/O 07/10/16 07/10/16 07/10/16 07/11/16 07/11/16 07/11/16 07:00 15:00 23:00 07:00 15:00 23:00 Intake Total 122 ml 493 ml 240 ml 240 ml Output Total 650 ml 250 ml 275 ml Balance 122 ml -157 ml -10 ml -35 ml Intake Oral 200 ml 240 ml 240 ml IV Total 122 ml 293 ml 0 ml Output Urine Total 650 ml 250 ml 275 ml # Voids 1 # Bowel Movements 0 0 0 Result Diagram: 07/09/16 2309 07/10/16 1120 Imaging Last Impressions Chest X-Ray 07/09/162300 Signed Impressions: Service Date/Time: Saturday, July 09, 2016 23:06 - CONCLUSION: 1. Coarse opacity at the right medial lung base most consistent with scarring. 2. Mild cardiomegaly with no pulmonary edema. Kahlil Mora MD Objective Remarks GENERAL: Elderly, frail female with sob- on venti mask, appears sob. SKIN: rash noted on the chest and abdomen/ and groins HEAD: Atraumatic. Normocephalic. No temporal or scalp tenderness. EYES: Pupils equal round and reactive. Extraocular motions intact. No scleral icterus. No injection or drainage. ENT: Nose without bleeding, purulent drainage or septal hematoma. Throat without erythema, tonsillar hypertrophy or exudate. Uvula midline. Airway patent. NECK: Trachea midline. No JVD or lymphadenopathy. Supple, nontender, no meningeal signs. CARDIOVASCULAR: Regular rate and rhythm without murmurs, gallops, or rubs. RESPIRATORY: Bilateral wheezing, bronchial sounds, sob, cough. No accessory muscle use. GASTROINTESTINAL: Abdomen soft, non-tender, nondistended. No hepato-splenomegaly , or palpable masses. No guarding. MUSCULOSKELETAL: Extremities without clubbing, cyanosis, or edema. No joint tenderness, effusion, or edema noted. No calf tenderness. Negative Homans sign bilaterally. NEUROLOGICAL: Awake and alert. A/P Problem List: (1) COPD with acute exacerbation ICD Code: J44.1 Status: Acute Assessment and Plan Acute respiratory failure due to COPD exacerbation- requiring BiPAP, alternating with venti mask continue to wean off as tolerated. Will continue with IV steroid and antibiotic- neb treatment, taper down as tolerated. Continue mucomist with nebs and continue acapella, incentive spirometry. Acute kidney injury with mild hyperkalemia-on gentle IV hydration- hold lasix and potassium supplements. Improving. - monitor renal function- BMP in am Diabetes mellitus; resume long acting insulin- accu-check with SSI History of CVA and dyslipidemia; resume home meds- Rash- will apply Clotrimazole cream on the groins- benadryl as needed DVT prophylaxis with SCD's Discussed Condition With The patient, ICU nurse. Ruba Rodriguez MD Jul 11, 2016 07:57
[2016-07-11] MEDS: ASPIRIN EC 81 MG TABEC PO SCH (08:12)
[2016-07-11] MEDS: DIPYRIDAMOLE/ASPIRIN 200 MG/25 MG CAP PO SCH ×2 (08:12→19:42)
[2016-07-11] MEDS: CLOTRIMAZOLE 1% CREAM 15 GM TOPICAL SCH ×2 (08:13→20:24)
[2016-07-11] MEDS: PRAVASTATIN SOD 40 MG TAB PO SCH (08:13)
[2016-07-11] MEDS: PANTOPRAZOLE SOD 20 MG DELAYED RELEASE TAB PO SCH (08:13)
[2016-07-11] MEDS: RESP: ALBUTEROL 2.5 MG/IPRATROPIUM 0.5 MG NEB (SCH) NEB ×4 (08:22→20:01)
[2016-07-11] MEDS ORDERED: LORazepam 2 MG/ML VIAL IV PUSH ONE (20:00)
[2016-07-11] MEDS ORDERED: methylPREDNISolone SOD SUCC 125 MG/2 ML VIAL IV PUSH ONE (20:00)
[2016-07-11] MEDS: INSULIN DETEMIR 100 UNITS/ML VIAL SQ SCH (20:23)
[2016-07-11] MEDS ORDERED: RESP: ALBUTEROL 2.5 MG/IPRATROPIUM 0.5 MG NEB (SCH) NEB ONE ×3 (20:30→21:30)
[2016-07-11 21:11] LABS: BLOOD GAS BASE EXCESS 9.1 mmol/L (-2-2); BLOOD GAS CARBOXYHEMOGLOBIN 1.4 % (0-4); BLOOD GAS HCO3 35 mmol/L (22-26); BLOOD GAS METHEMOGLOBIN 1.1 % (0-2); BLOOD GAS O2 HGB SATURATION 95 % (90-100); BLOOD GAS OXYGEN CONTENT 14.9 Vol % (12.0-20.0); BLOOD GAS PCO2 69 mmHg (38-42); BLOOD GAS PO2 94 mmHg (61-120); BLOOD GAS TOTAL HGB 11.1 G/DL (12.0-16.0); TEMP CORR TO 98.6
[2016-07-11 21:12] LABS: DRAW SITE RT RADIAL; FIO2 40 %; NUMBER OF ARTERIAL PUNCTURES 1; OXYGEN DEVICE NPPV; STAT YES; ULNAR PULSE PRESENT; VENT SETTINGS IPAP10 EPAP5
--- NOTE | 2016-07-11 21:25 | PD.CONS ---
HPI Service Critical Care Medicine Consult Requested By Primary Care Physician Jeff Olivas MD History of Present Illness 85 y/o female admitted with worsening sob. She's had difficulty breathing for about a week, with productive cough of yellowish sputum. she reports on and off fever over the past few days.according to ER, she was found to have a O2 sat of 70's at the time of EMS arrival. She is on BiPaP at the time of my evaluation. Review of Systems ROS Unable to obtain, patient on FM BiPAP Past Family Social History Allergies: Coded Allergies: Penicillin (Verified Allergy, Severe, Hives, 09/19/14) Vitamin B12 (Verified Allergy, Severe, ALLERGIC TO SHOT ONLY - HIVES, ) Past Medical History hypertension diabetes mellitus COPD dyslipidemia history of CVA Past Surgical History cataract surgery hysterectomy Reported Medications Pravastatin 40 Mg Tab 40 Mg PO DAILY Prednisone 5 Mg Tab 5 Mg PO DAILY Biotin 5,000 Mcg Cap 10,000 Mcg PO DAILY Vitamin C (Ascorbic Acid) 500 Mg Chew 500 Mg CHEW DAILY Aspirin 81 (Aspirin) 81 Mg Tabdr 81 Mg PO DAILY Aggrenox (Dipyridamole/Aspirin) 200-25 Mg Cap 1 Cap PO BID Duoneb (Ipratropium-Albuterol Neb) 0.5-2.5 Mg/3 Ml Neb 1 Nebule INH Q8HR NEB Levemir Inj (Insulin Detemir) 1,000 unit/ 10 ML Vial 9 Units SQ HS Do not mix with any other Insulin. Potassium Chloride ER (Potassium Chloride) 10 Meq Cap 10 Meq PO BID Furosemide 20 Mg Tab 20 Mg PO BID Omeprazole 20 Mg Tab 20 Mg PO DAILY Fish Oil + D3 (Fish Oil-Cholecalciferol) 1,200-1,000 Mg-Unit Cap 1 Cap PO BID Multivitamin Women (Multiple Vitamins W/ Minerals) 1 Tab Tab 1 Tab PO DAILY Docusate Sodium 100 Mg Cap 100 Mg PO DAILY Mucinex DM (Dextromethorphan-Guaifenesin) 30-600 Mg Tab 1 Tab PO BID PRN Active Ordered Medications Current Medications Medications (Trade) Dose Ordered Sig/Aranza Route PRN Reason Start Time Stop Time Status Last Admin Dose Admin IV Flush (NS Flush) 2 ml UNSCH PRN IVF FLUSH AFTER USING IV ACCESS 07/09/16 23:15 07/09/16 23:41 Methylprednisolone Sodium Succinate 40 mg 40 mg Q8HR IV PUSH 07/10/16 06:00 07/11/16 15:07 Levofloxacin/ Dextrose (Levaquin 250 Mg Premix Inj) 50 ml @ 50 mls/hr Q24H IV 07/10/16 23:00 07/10/16 22:14 Dextrose (D50w (Vial) Inj) 25 ml UNSCH PRN IV PUSH HYPOGLYCEMIA-SEE COMMENTS 07/10/16 01:30 Glucagon (Glucagon Inj) 1 mg UNSCH PRN OTHER HYPOGLYCEMIA-SEE COMMENTS 07/10/16 01:30 Aspirin (Ecotrin Ec) 81 mg DAILY PO 07/10/16 09:00 07/11/16 08:12 Dipyridamole/ Aspirin (Aggrenox 200-25 Mg) 1 cap BID PO 07/10/16 09:00 07/11/16 19:42 Insulin Detemir (Levemir Inj) 9 units HS SQ 07/10/16 21:00 07/11/16 20:23 Pantoprazole Sodium (Protonix) 20 mg DAILY PO 07/10/16 09:00 07/11/16 08:13 Pravastatin Sodium (Pravachol) 40 mg DAILY PO 07/10/16 09:00 07/11/16 08:13 Clotrimazole (Lotrimin 1% Cream) 1 applic Q12HR TOPICAL 07/10/16 09:00 07/11/16 20:24 Diphenhydramine HCl (Benadryl) 25 mg Q8HR PRN PO ITCHING 07/10/16 01:45 Acetaminophen (Tylenol) 650 mg Q4H PRN PO FEVER 07/10/16 01:45 Miscellaneous Information Patient in critical care unit? Ass... [id number] XX 07/10/16 04:00 07/10/16 03:56 Chlorhexidine Gluconate (Chlorhexidine 2% Cloth) 3 pack DAILY@04 TOP 07/10/16 04:00 07/14/16 04:01 07/11/16 04:00 Chlorhexidine Gluconate (Chlorhexidine 2% Cloth) 3 pack UNSCH PRN TOP HYGIENIC CARE 07/10/16 04:00 07/15/16 03:51 Ondansetron HCl (Zofran Inj) 4 mg Q6H PRN IVP NAUSEA OR VOMITING 07/10/16 14:15 Prochlorperazine (Compazine Supp) 25 mg Q12H PRN SC NAUSEA OR VOMITING 07/10/16 14:15 Bisacodyl (Dulcolax Supp) 10 mg DAILY PRN SC CONSTIPATION 07/10/16 14:15 Magnesium Hydroxide (Milk Of Magnmela Liq) 30 ml Q12H PRN PO CONSTIPATION 07/10/16 14:15 Sennosides (Senokot) 17.2 mg Q12H PRN PO CONSTIPATION 07/10/16 14:15 Temazepam (Restoril) 15 mg HS PRN PO INSOMNIA 07/10/16 14:15 Family History Noncontributory Social History Former smoker, quit many years ago No Alcohol or Illicit Drugs Lives with Daughter Physical Exam Vital Signs Vital Signs Date Time Temp Pulse Resp B/P Pulse Ox O2 Delivery O2 Flow Rate FiO2 07/11/16 20:01 98 40 07/11/16 18:00 82 07/11/16 16:00 97.7 90 24 132/60 90 07/11/16 16:00 100 Nasal Cannula 5.00 07/11/16 16:00 90 07/11/16 15:32 100 40 07/11/16 14:00 74 07/11/16 12:04 99 40 07/11/16 12:00 98 Bi-Pap 40 07/11/16 12:00 86 07/11/16 12:00 96.9 86 33 125/58 99 07/11/16 10:00 80 07/11/16 08:23 96 Nasal Cannula 5.00 07/11/16 08:00 76 07/11/16 08:00 100 Nasal Cannula 5.00 07/11/16 08:00 97.2 76 20 116/56 99 07/11/16 06:00 68 07/11/16 04:19 95 Venturi Mask 50 07/11/16 04:00 98 Bi-Pap 40 07/11/16 04:00 97.5 78 20 109/54 98 07/11/16 04:00 78 07/11/16 03:50 95 40 07/11/16 02:00 80 07/11/16 01:00 98 40 07/11/16 00:00 100 Venturi Mask 50 07/11/16 00:00 92 07/11/16 00:00 98.6 92 26 135/64 100 07/10/16 22:00 85 Physical Exam GENERAL: Well-nourished, well-developed elderly patient. SKIN: Warm and dry. HEAD: Normocephalic. EYES: No scleral icterus. No injection or drainage. NECK: Supple, trachea midline. No JVD or lymphadenopathy. CARDIOVASCULAR: Regular rate and rhythm without murmurs, gallops, or rubs. RESPIRATORY: Breath sounds equal but decreased bilaterally. No accessory muscle use. GASTROINTESTINAL: Abdomen soft, non-tender, nondistended. MUSCULOSKELETAL: No cyanosis, or edema. BACK: Nontender without obvious deformity. No CVA tenderness. Laboratory Laboratory Tests Test 07/11/16 00:00 Blood Gas Puncture Site RT RADIAL Blood Gas Patient Temperature 98.6 Blood Gas HCO3 35 Blood Gas Base Excess 9.1 Blood Gas Oxygen Saturation 95 Arterial Blood pH 7.33 Arterial Blood Partial 69 Pressure CO2 Arterial Blood Partial 94 Pressure O2 Arterial Blood Oxygen Content 14.9 Arterial Blood 1.4 Carboxyhemoglobin Arterial Blood Methemoglobin 1.1 Blood Gas Hemoglobin 11.1 Oxygen Delivery Device NPPV Blood Gas Ventilator Setting [id number] Blood Gas Inspired Oxygen 40 Date/Time Procedure Status Source Growth 07/10/16 18:30 Legionella Antigen - Final Complete Urine Random Urine PRESUMPTIVE NEGATIVE FOR LEGIONELLA P... 07/10/16 18:30 Streptococcus pneumoniae Antigen (M - Final Complete Urine Random Urine PRESUMPTIVE NEGATIVE FOR STREPTOCOCCU... 07/09/16 23:18 Aerobic Blood Culture - Preliminary Resulted Blood Peripheral NO GROWTH IN 2 DAYS 07/09/16 23:18 Anaerobic Blood Culture - Preliminary Resulted Blood Peripheral NO GROWTH IN 2 DAYS Result Diagram: 07/09/16 2309 07/10/16 1120 Septic Shock Reassessment Heart: Regular rate and rhythm Lungs: Course Peripheral Pulses: Bounding Right Radial Bounding Left Radial Assessment and Plan Problem List: (1) COPD with acute exacerbation ICD Code: J44.1 Status: Acute (2) Diabetes mellitus type 2, uncontrolled ICD Code: E11.9 Status: Chronic (3) Chronic diastolic congestive heart failure ICD Code: I50.32 Status: Chronic Assessment and Plan Respiratory failure - COPD exacerbation - i.v. steroids - Aerosols scheduled and PRN - BiPAP - Avoid intubation - If the patient declines to require Intubation - it will be almost impossible to wean her off due to her poor baseline functional status and other comorbidities - Empiric ATB CHF - gentle diuresis IZA - fluid overload - gentle diuresis - monitor electrolytes HTN - marginal BP now - Hold home meds Diabetes mellitus - ISS Dyslipidemia - Pravastatin History of CVA - ASA - Statins - supportive care DVT/GI prophylaxis - Heparin subQ/ Pantoprazole Critical Care: The total critical care time was 35 minutes. Time to perform other separately billable procedures was not included in the critical care time. Denver Dillon MD Jul 11, 2016 21:25
--- NOTE | 2016-07-11 21:46 | RADRPT ---
EXAM DATE/TIME: 07/11/2016 20:03 [facility] COMPARISON: CHEST SINGLE AP, July 09, 2016, 23:06. INDICATIONS : Shortness of breath. MEDICAL HISTORY : Chronic obstructive pulmonary disease. Congestive heart failure. Emphysema. SURGICAL HISTORY : None. ENCOUNTER: Subsequent ACUITY: 3 days PAIN SCORE: 0/10 LOCATION: Bilateral chest FINDINGS: The heart size is upper limits of normal. There is increased density at the right base . The left lung appears grossly clear. A significant effusion is not clearly seen. CONCLUSION: Right base area of consolidation or atelectasis. En Bell MD on July 11, 2016 at 21:31 Board Certified Radiologist. This report was verified electronically.
[2016-07-11] MEDS: FUROSEMIDE 20 MG/2 ML VIAL IV PUSH SCH (23:55)
[2016-07-11] MEDS: LEVOFLOXACIN 250 MG PREMIX INJ 50 ML IV SCH (23:55)
[2016-07-12] VITALS (19 sets, daily range): BP systolic 90–125; BP diastolic 50–59; PULSE 56–83; RESP 12–28; TEMP 97.5–99; O2SAT 89–100
[2016-07-12] MEDS ORDERED: ETOMIDATE 20 MG/10 ML VIAL ONE (00:04)
[2016-07-12] MEDS ORDERED: SUCCINYLCHOLINE CHLORIDE 200 MG/10 ML VIAL IV SCH (00:05)
[2016-07-12] MEDS ORDERED: ETOMIDATE 20 MG/10 ML VIAL IV PUSH SCH (00:05)
[2016-07-12] MEDS ORDERED: PROPOFOL 1000 MG/100 ML INJ 100 ML ONE (00:20)
--- NOTE | 2016-07-12 00:54 | PD.PROCEDR ---
Procedure Note Procedure Central Venous Catheter (CVC, Central Line) Placement Date: 07/12/16 Time: 0:44 Indication: Hemodynamic monitoring/Intravenous access A time-out was completed verifying correct patient, procedure, site, positioning , and special equipment if applicable. The patient was placed in a dependent position appropriate for central line placement based on the vein to be cannulated. The patients right shoulder was prepped and draped in sterile fashion. 1% Lidocaine was used to anesthetize the surrounding skin area. A triple lumen 9-Swedish Cordis catheter was introduced into the the subclavian vein using the Seldinger technique. The catheter was threaded smoothly over the guide wire and appropriate blood return was obtained. Each lumen of the catheter was evacuated of air and flushed with sterile saline. The catheter was then sutured in place to the skin and a sterile dressing applied. Perfusion to the extremity distal to the point of catheter insertion was checked and found to be adequate. Estimated Blood Loss: 2 ml The patient tolerated the procedure well and there were no complications Denver Dillon MD Jul 12, 2016 00:54
--- NOTE | 2016-07-12 00:58 | PD.PROCEDR ---
Procedure Note Procedure Endotracheal Intubation Date: 07/12/16 Time: 0:35 Indication: Respiratory Distress A time-out was completed verifying correct patient, procedure, site, positioning , and special equipment if applicable. The patient was placed in a flat position. Sedation was obtained using Etomidate 20mg. The patient was easily ventilated using an ambu bag. The [employer]/ MAC 4 BLADE was used and inserted into the oropharynx at which time there was a Grade 1 view of the vocal cords. A 7.5-slovak endotracheal tube was inserted and visualized going through the vocal cords. The stylette was removed. Colorimetric change was visualized on the CO2 meter. Breath sounds were heard in both lung wilson equally. The endotracheal tube was placed at 23 cm, measured at the teeth. A chest x-ray was ordered to assess for pneumothorax and verify endotrachealtube placement. Estimated Blood Loss: 0 The patient tolerated the procedure well and there were no complications. Denver Dillon MD Jul 12, 2016 00:58
--- NOTE | 2016-07-12 01:06 | RADRPT ---
EXAM DATE/TIME: 07/12/2016 00:43 [facility] COMPARISON: CHEST SINGLE AP, July 11, 2016, 20:03. INDICATIONS : Intubation and central line placement. Shortness of breath MEDICAL HISTORY : Chronic obstructive pulmonary disease. Congestive heart failure. Emphysema SURGICAL HISTORY : None. ENCOUNTER: Subsequent ACUITY: 4 - 6 days PAIN SCORE: Non-responsive. LOCATION: Bilateral chest FINDINGS: A single AP semierect view the chest was obtained and demonstrates interval intubation with the endot johnie tube tip approximately 2 cm above the mita. There is been placement of a nasogastric tube w hich is seen coursing through the esophagus into the stomach. A right subclavian central venous didi ter has been place with the tip projected over the superior vena cava. There is no evidence of pneumo thorax. Atherosclerotic calcifications are again noted in the aorta. The heart size remains at the up per limits of normal with no perihilar edema. There is coarse patchy opacity remaining at the right l chanel base. The left lung appears clear. Overlying electrocardiogram leads are present. CONCLUSION: 1. Interval intubation with the endotracheal tube tip 2 cm above the mita. 2. Placement of right subclavian central venous line with no pneumothorax. 3. Coarse patchy opacity remains at the right lung base. Kahlil Mora MD on July 12, 2016 at 1:03 Board Certified Radiologist. This report was verified electronically.
[2016-07-12] MEDS: RESP: ACETYLCYSTEINE 20% 30 ML NEB NEB SCH ×2 (02:54→09:11)
[2016-07-12] MEDS: RESP: ALBUTEROL 2.5 MG/IPRATROPIUM 0.5 MG NEB (PRN) NEB (02:54)
[2016-07-12] MEDS: CHLORHEXIDINE GLUCONATE 2 % 1 PACK (2 CLOTHS)(taper/protocol) TOP SCH (04:00)
[2016-07-12 04:23] LABS: AUTOMATED NEUTROPHIL # 4.3 TH/MM3 (1.8-7.7); BASOPHIL % 0.1 % (0.0-2.0); HEMATOCRIT 34.9 % (35.0-46.0); LYMPH % 5.6 % (9.0-44.0); LYMPHOCYTE # 0.3 TH/MM3 (1.0-4.8); MEAN CELL VOLUME 81.5 FL (80.0-100.0); MEAN CORPUSCULAR HEMOGLOBIN 24.8 PG (27.0-34.0); MEAN CORPUSCULAR HGB CONC 30.5 % (32.0-36.0); MONO % 7.1 % (0.0-8.0); NEUT % 87.2 % (16.0-70.0); PLATELET COUNT 166 TH/MM3 (150-450); RED BLOOD COUNT 4.28 MIL/MM3 (4.00-5.30); RED CELL DISTRIBUTION WIDTH 16.8 % (11.6-17.2)
[2016-07-12 04:32] LABS: HEMO FLAGS AUTO DIFF
[2016-07-12 04:54] LABS: ALKALINE PHOSPHATASE 66 U/L (45-117); ALT (GPT) 30 U/L (10-53); ANION GAP 6 MEQ/L (5-15); AST (GOT) 30 U/L (15-37); BLOOD UREA NITROGEN 40 MG/DL (7-18); CHLORIDE 101 MEQ/L (98-107); GLOMERULAR FILTRATION RATE 39 ML/MIN (>89); MAGNESIUM 2.6 MG/DL (1.5-2.5); POTASSIUM 3.7 MEQ/L (3.5-5.1); SODIUM (NA) 144 MEQ/L (136-145); TOTAL BILIRUBIN ADULT 0.4 MG/DL (0.2-1.0)
[2016-07-12] MEDS: FUROSEMIDE 20 MG/2 ML VIAL IV PUSH SCH ×2 (05:04→09:37)
[2016-07-12] MEDS: methylPREDNISolone SOD SUCC 40 MG/1 ML VIAL IV PUSH SCH ×3 (05:04→23:28)
[2016-07-12 05:06] LABS: BLOOD GAS BASE EXCESS 7.3 mmol/L (-2-2); BLOOD GAS CARBOXYHEMOGLOBIN 1.5 % (0-4); BLOOD GAS HCO3 34 mmol/L (22-26); BLOOD GAS METHEMOGLOBIN 1.4 % (0-2); BLOOD GAS O2 HGB SATURATION 94 % (90-100); BLOOD GAS OXYGEN CONTENT 14.6 Vol % (12.0-20.0); BLOOD GAS PCO2 72 mmHg (38-42); BLOOD GAS PO2 101 mmHg (61-120); BLOOD GAS TOTAL HGB 10.9 G/DL (12.0-16.0); TEMP CORR TO 98.6
[2016-07-12 05:07] LABS: CRITICAL VALUE YES; FIO2 40 %; OXYGEN DEVICE VENTILATOR
[2016-07-12 05:08] LABS: DRAW SITE LT RADIAL; NUMBER OF ARTERIAL PUNCTURES 1; STAT NO; ULNAR PULSE PRESENT
[2016-07-12] MEDS: PROPOFOL 1000 MG/100 ML IV SCH ×3 (06:13→18:18)
[2016-07-12 07:49] LABS: BANDS 27 % (0-6); METAMYELOCYTES 1 % (0-1); NEUTROPHIL # MANUAL DIFF 4.8 TH/MM3 (1.8-7.7); PLATELET ESTIMATE SMEAR NORMAL (NORMAL); PLATELET MORPHOLOGY NORMAL (NORMAL); POLYS (SEG NEUTROPHILS) 68 % (16-70); SCAN/DIFF FINAL DIFF MANUAL; WBC DIFF SAMPLE 100
[2016-07-12] MEDS: RESP: ALBUTEROL 2.5 MG/IPRATROPIUM 0.5 MG NEB (SCH) NEB ×3 (09:11→21:00)
[2016-07-12] MEDS: PANTOPRAZOLE SOD 20 MG DELAYED RELEASE TAB PO SCH (09:37)
[2016-07-12] MEDS: DIPYRIDAMOLE/ASPIRIN 200 MG/25 MG CAP PO SCH ×2 (09:37→21:13)
[2016-07-12] MEDS: HEPARIN SODIUM - SQ 10,000 UNITS/ML VIAL SQ SCH ×2 (09:37→21:13)
[2016-07-12] MEDS: PRAVASTATIN SOD 40 MG TAB PO SCH (09:37)
[2016-07-12] MEDS: ASPIRIN EC 81 MG TABEC PO SCH (09:37)
[2016-07-12] MEDS: CLOTRIMAZOLE 1% CREAM 15 GM TOPICAL SCH ×2 (09:38→21:13)
[2016-07-12] MEDS ORDERED: SODIUM CHLORID 0.9% 500 ML INJ 500 ML IV SCH (10:45)
--- NOTE | 2016-07-12 10:53 | HHI.CCPN ---
Subjective Remarks/Hospital Course 85 y/o female admitted with worsening sob. She's had difficulty breathing for about a week, with productive cough of yellowish sputum. she reports on and off fever over the past few days.according to ER, she was found to have a O2 sat of 70's at the time of EMS arrival. She is on BiPaP at the time of my evaluation. 07/12 Patient is sedated with Diprivan and intubated. Afebrile. Objective Vital Signs Date Time Temp Pulse Resp B/P Pulse Ox O2 Delivery O2 Flow Rate FiO2 07/12/16 09:14 100 40 07/12/16 06:00 64 07/12/16 04:00 98.7 12 99/50 07/12/16 04:00 Mechanical Ventilator 07/11/16 23:17 15.00 Intake and Output 07/11/16 07/11/16 07/11/16 07:59 15:59 23:59 Intake Total 240 ml 240 ml 50 ml Output Total 275 ml 350 ml 175 ml Balance -35 ml -110 ml -125 ml Result Diagram: 07/12/16 0328 07/12/16 0328 Other Results Laboratory Tests Test 07/12/16 07/12/16 03:28 04:53 White Blood Count 5.0 TH/MM3 Red Blood Count 4.28 MIL/MM3 Hemoglobin 10.6 GM/DL Hematocrit 34.9 % Mean Corpuscular Volume 81.5 FL Mean Corpuscular Hemoglobin 24.8 PG Mean Corpuscular Hemoglobin 30.5 % Concent Red Cell Distribution Width 16.8 % Platelet Count 166 TH/MM3 Mean Platelet Volume 9.4 FL Neutrophils (%) (Auto) 87.2 % Lymphocytes (%) (Auto) 5.6 % Monocytes (%) (Auto) 7.1 % Eosinophils (%) (Auto) 0.0 % Basophils (%) (Auto) 0.1 % Neutrophils # (Auto) 4.3 TH/MM3 Lymphocytes # (Auto) 0.3 TH/MM3 Monocytes # (Auto) 0.4 TH/MM3 Eosinophils # (Auto) 0.0 TH/MM3 Basophils # (Auto) 0.0 TH/MM3 CBC Comment AUTO DIFF Differential Total Cells 100 Counted Neutrophils % (Manual) 68 % Band Neutrophils % 27 % Lymphocytes % 2 % Monocytes % 2 % Neutrophils # (Manual) 4.8 TH/MM3 Metamyelocytes 1 % Differential Comment FINAL DIFF MANUAL Platelet Estimate NORMAL Platelet Morphology Comment NORMAL Sodium Level 144 MEQ/L Potassium Level 3.7 MEQ/L Chloride Level 101 MEQ/L Carbon Dioxide Level 37.0 MEQ/L Anion Gap 6 MEQ/L Blood Urea Nitrogen 40 MG/DL Creatinine 1.29 MG/DL Estimat Glomerular Filtration 39 ML/MIN Rate Random Glucose 189 MG/DL Calcium Level 7.9 MG/DL Phosphorus Level 3.8 MG/DL Magnesium Level 2.6 MG/DL Total Bilirubin 0.4 MG/DL Aspartate Amino Transf 30 U/L (AST/SGOT) Alanine Aminotransferase 30 U/L (ALT/SGPT) Alkaline Phosphatase 66 U/L Total Protein 6.1 GM/DL Albumin 2.7 GM/DL Blood Gas Puncture Site LT RADIAL Blood Gas Patient Temperature 98.6 Blood Gas HCO3 34 mmol/L Blood Gas Base Excess 7.3 mmol/L Blood Gas Oxygen Saturation 94 % Arterial Blood pH 7.29 Arterial Blood Partial 72 mmHg Pressure CO2 Arterial Blood Partial 101 mmHg Pressure O2 Arterial Blood Oxygen Content 14.6 Vol % Arterial Blood 1.5 % Carboxyhemoglobin Arterial Blood Methemoglobin 1.4 % Blood Gas Hemoglobin 10.9 G/DL Oxygen Delivery Device VENTILATOR Blood Gas Ventilator Setting COMMENT Blood Gas Inspired Oxygen 40 % Imaging Last Impressions Chest X-Ray 07/12/16 0038 Signed Impressions: Service Date/Time: Tuesday, July 12, 2016 00:43 - CONCLUSION: 1. Interval intubation with the endotracheal tube tip 2 cm above the mita. 2. Placement of right subclavian central venous line with no pneumothorax. 3. Coarse patchy opacity remains at the right lung base. Kahlil Mora MD Objective Remarks GENERAL: Patient is 85 yo sedated and intubated. SKIN: Warm and dry. HEAD: Normocephalic. EYES: No scleral icterus. No injection or drainage. NECK: Supple, trachea midline. No JVD or lymphadenopathy. Orally intubated. CARDIOVASCULAR: Regular rate and rhythm without murmurs, gallops, or rubs. RESPIRATORY: Breath sounds equal bilaterally. No accessory muscle use. GASTROINTESTINAL: Abdomen soft, non-tender, nondistended. MUSCULOSKELETAL: No cyanosis, or edema. Neuro: Intubated. A/P Problem List: (1) COPD with acute exacerbation ICD Code: J44.1 Status: Acute (2) Diabetes mellitus type 2, uncontrolled ICD Code: E11.9 Status: Chronic (3) Chronic diastolic congestive heart failure ICD Code: I50.32 Status: Chronic Assessment and Plan 1)VDRF 2)COPD exacerbation 3)Mild IZA 4)Anemia 5)Hx HTN 6)DM 7)Hx CHF 8)Hx CVA Plan Neuro: On Diprivan infusion for sedation , daily sedation vacation. Pulm: Continue with vent support keep sat >92% Bronchodilators, Solumederol 40mg Q8 ICU vent bundle, check ABG CV: Monitor HR and BP keep MAP>65mmHg. On ASA, Pravastatin daily : Monitor renal function, I/O's, electrolytes replacement per protocol. Place on NS 50ml/hr x 1 bag ( NS 500ml bag). d/c Lasix GI: On Protonix 20mg daily Start TF-Glucerna 1.5 with goal rate 45ml/hr ID: Continue with abx ( Levaquin) monitor for signs of infections ( Fever, WBC) Strep pneumonia and Legionella Ag negative. Check sputum cx. Follow up on BC. heme: Monitor CBC Endo: SSI( low scale) with accuchecks for glycemic control DVT/GI prophylaxis - Heparin subQ/ Pantoprazole Lines: Right subclavian CVP placed 07/12 CCT 30 mins Neil Roque MD Jul 12, 2016 10:53
[2016-07-12 11:28] LABS: BLOOD GAS BASE EXCESS 8.8 mmol/L (-2-2); BLOOD GAS CARBOXYHEMOGLOBIN 1.7 % (0-4); BLOOD GAS HCO3 34 mmol/L (22-26); BLOOD GAS METHEMOGLOBIN 1.2 % (0-2); BLOOD GAS O2 HGB SATURATION 88 % (90-100); BLOOD GAS OXYGEN CONTENT 13.7 Vol % (12.0-20.0); BLOOD GAS PCO2 55 mmHg (38-42); BLOOD GAS PO2 60 mmHg (61-120); CRITICAL VALUE YES; OXYGEN DEVICE VENTILATOR; TEMP CORR TO 98.6
[2016-07-12 11:29] LABS: DRAW SITE RT BRACHIAL; FIO2 30 %; NUMBER OF ARTERIAL PUNCTURES 1; STAT NO; ULNAR PULSE PRESENT
[2016-07-12] MEDS: INSULIN ASPART SUPPLEMENTAL SCALE SQ SCH ×2 (11:29→18:18)
[2016-07-12] MEDS: LEVOFLOXACIN 250 MG PREMIX INJ 50 ML IV SCH (23:28)
[2016-07-13] VITALS (18 sets, daily range): BP systolic 92–144; BP diastolic 47–65; PULSE 58–99; RESP 20–29; TEMP 97.7–98.5; O2SAT 89–99
[2016-07-13] MEDS: PROPOFOL 1000 MG/100 ML IV SCH ×4 (00:20→21:20)
[2016-07-13] MEDS: INSULIN ASPART SUPPLEMENTAL SCALE SQ SCH ×5 (00:38→23:58)
[2016-07-13] MEDS: RESP: ALBUTEROL 2.5 MG/IPRATROPIUM 0.5 MG NEB (SCH) NEB ×3 (03:25→20:05)
[2016-07-13] MEDS: CHLORHEXIDINE GLUCONATE 2 % 1 PACK (2 CLOTHS)(taper/protocol) TOP SCH (03:55)
[2016-07-13 05:18] LABS: HEMATOCRIT 35.7 % (35.0-46.0); HEMO FLAGS DIFF FINAL; LYMPH % 8.1 % (9.0-44.0); LYMPHOCYTE # 0.7 TH/MM3 (1.0-4.8); MEAN CELL VOLUME 80.4 FL (80.0-100.0); MONO % 9.7 % (0.0-8.0); NEUT % 82.2 % (16.0-70.0); PLATELET COUNT 190 TH/MM3 (150-450); RED BLOOD COUNT 4.45 MIL/MM3 (4.00-5.30); WHITE BLOOD COUNT 8.5 TH/MM3 (4.0-11.0)
[2016-07-13 05:33] LABS: BICARBONATE 37.4 MEQ/L (21.0-32.0); POTASSIUM 3.4 MEQ/L (3.5-5.1)
[2016-07-13] MEDS: methylPREDNISolone SOD SUCC 40 MG/1 ML VIAL IV PUSH SCH ×3 (06:38→21:20)
[2016-07-13] MEDS: PRAVASTATIN SOD 40 MG TAB PO SCH (07:54)
[2016-07-13] MEDS: DIPYRIDAMOLE/ASPIRIN 200 MG/25 MG CAP PO SCH ×2 (07:54→21:19)
[2016-07-13] MEDS: ASPIRIN EC 81 MG TABEC PO SCH (07:54)
[2016-07-13] MEDS: CLOTRIMAZOLE 1% CREAM 15 GM TOPICAL SCH ×2 (07:54→21:19)
[2016-07-13] MEDS: SODIUM CHLORIDE 0.9% FLUSH 5 ML FLUSH IVF PRN (07:55)
[2016-07-13] MEDS: HEPARIN SODIUM - SQ 10,000 UNITS/ML VIAL SQ SCH ×2 (07:55→21:19)
[2016-07-13] MEDS: PANTOPRAZOLE SOD 20 MG DELAYED RELEASE TAB PO SCH (09:00)
[2016-07-13] MEDS ORDERED: POTASSIUM PHOSPHATE MONOBASIC 500 MG TAB PO PRN (10:45)
[2016-07-13] MEDS ORDERED: POTASSIUM PHOSPHATE INJ 30 MMOL in SODIUM CHLOR 0.9% 250 ML INJ 250 ML IV PRN (10:45)
[2016-07-13] MEDS ORDERED: MAGNESIUM OXIDE 400 MG TAB PO PRN (10:45)
[2016-07-13] MEDS ORDERED: SODIUM PHOSPHATE INJ 30 MMOL in SODIUM CHLOR 0.9% 250 ML INJ 240 ML IV PRN (10:45)
[2016-07-13] MEDS ORDERED: MAGNESIUM SULFATE INJ 4 GM in SODIUM CHLORIDE 0.9% INJ 92 ML IV PRN (10:45)
[2016-07-13] MEDS ORDERED: POTASSIUM CHLOR 20 MEQ PREMIX 100 ML IV PRN ×2 (10:45)
[2016-07-13] MEDS ORDERED: POTASSIUM PHOSPHATE MONOBASIC 500 MG TAB PO/TUBE PRN (10:45)
[2016-07-13] MEDS ORDERED: POTASSIUM CL 40 MEQ/30 ML LIQ UDC PO/TUBE PRN ×2 (10:45)
[2016-07-13] MEDS ORDERED: MAGNESIUM SULFATE INJ 2 GM in SODIUM CHLORIDE 0.9% INJ 96 ML IV PRN (10:45)
[2016-07-13] MEDS ORDERED: POTASSIUM CHLOR 40 MEQ PREMIX 100 ML IV PRN ×2 (10:45)
--- NOTE | 2016-07-13 10:59 | HHI.CCPN ---
Subjective Remarks/Hospital Course 85 y/o female admitted with worsening sob. She's had difficulty breathing for about a week, with productive cough of yellowish sputum. she reports on and off fever over the past few days.according to ER, she was found to have a O2 sat of 70's at the time of EMS arrival. She is on BiPaP at the time of my evaluation. 07/12 Patient is sedated with Diprivan and intubated. Afebrile. 07/13 No acute events overnight. Sedated with Diprivan and intubated. Afebrile. Objective Vital Signs Date Time Temp Pulse Resp B/P Pulse Ox O2 Delivery O2 Flow Rate FiO2 07/13/16 09:45 30 07/13/16 08:41 92 07/13/16 08:13 97.7 64 20 111/56 07/13/16 04:00 Mechanical Ventilator 07/11/16 23:17 15.00 Intake and Output 07/12/16 07/12/16 07/13/16 08:00 16:00 00:00 Intake Total 1120 ml 281 ml 681 ml Output Total 450 ml 525 ml 300 ml Balance 670 ml -244 ml 381 ml Result Diagram: 07/13/16 0410 07/13/16 0400 Other Results Laboratory Tests Test 07/12/16 07/13/16 07/13/16 11:18 04:00 04:10 Blood Gas Puncture Site RT BRACHIAL Blood Gas Patient Temperature 98.6 Blood Gas HCO3 34 mmol/L Blood Gas Base Excess 8.8 mmol/L Blood Gas Oxygen Saturation 88 % Arterial Blood pH 7.41 Arterial Blood Partial 55 mmHg Pressure CO2 Arterial Blood Partial 60 mmHg Pressure O2 Arterial Blood Oxygen Content 13.7 Vol % Arterial Blood 1.7 % Carboxyhemoglobin Arterial Blood Methemoglobin 1.2 % Blood Gas Hemoglobin 11.0 G/DL Oxygen Delivery Device VENTILATOR Blood Gas Ventilator Setting Blood Gas Inspired Oxygen 30 % Sodium Level 144 MEQ/L Potassium Level 3.4 MEQ/L Chloride Level 102 MEQ/L Carbon Dioxide Level 37.4 MEQ/L Anion Gap 5 MEQ/L Blood Urea Nitrogen 50 MG/DL Creatinine 1.27 MG/DL Estimat Glomerular Filtration 40 ML/MIN Rate Random Glucose 213 MG/DL Calcium Level 8.1 MG/DL White Blood Count 8.5 TH/MM3 Red Blood Count 4.45 MIL/MM3 Hemoglobin 11.1 GM/DL Hematocrit 35.7 % Mean Corpuscular Volume 80.4 FL Mean Corpuscular Hemoglobin 25.0 PG Mean Corpuscular Hemoglobin 31.0 % Concent Red Cell Distribution Width 17.0 % Platelet Count 190 TH/MM3 Mean Platelet Volume 10.5 FL Neutrophils (%) (Auto) 82.2 % Lymphocytes (%) (Auto) 8.1 % Monocytes (%) (Auto) 9.7 % Eosinophils (%) (Auto) 0.0 % Basophils (%) (Auto) 0.0 % Neutrophils # (Auto) 7.0 TH/MM3 Lymphocytes # (Auto) 0.7 TH/MM3 Monocytes # (Auto) 0.8 TH/MM3 Eosinophils # (Auto) 0.0 TH/MM3 Basophils # (Auto) 0.0 TH/MM3 CBC Comment DIFF FINAL Differential Comment Imaging Last Impressions Chest X-Ray 07/12/16 0038 Signed Impressions: Service Date/Time: Tuesday, July 12, 2016 00:43 - CONCLUSION: 1. Interval intubation with the endotracheal tube tip 2 cm above the mita. 2. Placement of right subclavian central venous line with no pneumothorax. 3. Coarse patchy opacity remains at the right lung base. Kahlil Mora MD Objective Remarks GENERAL: Patient is 85 yo sedated and intubated. SKIN: Warm and dry. HEAD: Normocephalic. EYES: No scleral icterus. No injection or drainage. NECK: Supple, trachea midline. No JVD or lymphadenopathy. Orally intubated. CARDIOVASCULAR: Regular rate and rhythm without murmurs, gallops, or rubs. RESPIRATORY: Breath sounds equal bilaterally. No accessory muscle use. GASTROINTESTINAL: Abdomen soft, non-tender, nondistended. MUSCULOSKELETAL: No cyanosis, or edema. Neuro: Intubated. A/P Problem List: (1) COPD with acute exacerbation ICD Code: J44.1 Status: Acute (2) Diabetes mellitus type 2, uncontrolled ICD Code: E11.9 Status: Chronic (3) Chronic diastolic congestive heart failure ICD Code: I50.32 Status: Chronic Assessment and Plan 1)VDRF 2)COPD exacerbation 3)Mild IZA 4)Anemia 5)Hx HTN 6)DM 7)Hx CHF 8)Hx CVA Plan Neuro: On Diprivan infusion for sedation , daily sedation vacation. Pulm: Continue with vent support keep sat >92% Bronchodilators, Solumederol 40mg Q8 ICU vent bundle, start CPAP trials and possible extubation today. CV: Monitor HR and BP keep MAP>65mmHg. On ASA, Pravastatin daily : Monitor renal function, I/O's, electrolytes replacement per protocol. Place on NS@75ml/hr GI: On Protonix 20mg daily On TF-Glucerna 1.5 with goal rate 45ml/hr ID: Continue with abx ( Levaquin) monitor for signs of infections ( Fever, WBC) Strep pneumonia and Legionella Ag negative. Follow up on sputum, BC. heme: Monitor CBC Endo: SSI( low scale) with accuchecks for glycemic control DVT/GI prophylaxis - Heparin subQ/ Pantoprazole Lines: Right subclavian CVP placed 07/12 CCT 30 mins Neil Roque MD Jul 13, 2016 10:59
[2016-07-13] MEDS: SODIUM CHLOR 0.9% 1000 ML INJ 1,000 ML IV SCH (12:19)
[2016-07-13 14:18] LABS: BLOOD GAS BASE EXCESS 9.1 mmol/L (-2-2); BLOOD GAS CARBOXYHEMOGLOBIN 1.4 % (0-4); BLOOD GAS HCO3 36 mmol/L (22-26); BLOOD GAS METHEMOGLOBIN 1.3 % (0-2); BLOOD GAS O2 HGB SATURATION 93 % (90-100); BLOOD GAS OXYGEN CONTENT 15.8 Vol % (12.0-20.0); BLOOD GAS PCO2 76 mmHg (38-42); BLOOD GAS PO2 90 mmHg (61-120); TEMP CORR TO 98.6
[2016-07-13 14:19] LABS: CRITICAL VALUE YES; OXYGEN DEVICE VENTILATOR; VENT SETTINGS 10/+5
[2016-07-13 14:20] LABS: DRAW SITE RT BRACHIAL; FIO2 40 %; NUMBER OF ARTERIAL PUNCTURES 1; STAT NO
[2016-07-13] MEDS: LEVOFLOXACIN 250 MG PREMIX INJ 50 ML IV SCH (21:20)
[2016-07-14] VITALS (20 sets, daily range): BP systolic 84–130; BP diastolic 49–58; PULSE 58–95; RESP 20; TEMP 97–97.8; O2SAT 95–100
[2016-07-14] MEDS: SODIUM CHLOR 0.9% 1000 ML INJ 1,000 ML IV SCH ×3 (00:05→21:02)
[2016-07-14] MEDS: RESP: ALBUTEROL 2.5 MG/IPRATROPIUM 0.5 MG NEB (SCH) NEB ×4 (03:42→20:22)
[2016-07-14 03:50] LABS: AUTOMATED NEUTROPHIL # 5.9 TH/MM3 (1.8-7.7); BASOPHIL % 0.2 % (0.0-2.0); HEMATOCRIT 32.9 % (35.0-46.0); LYMPH % 6.4 % (9.0-44.0); LYMPHOCYTE # 0.5 TH/MM3 (1.0-4.8); MEAN CELL VOLUME 80.8 FL (80.0-100.0); MEAN CORPUSCULAR HEMOGLOBIN 25.5 PG (27.0-34.0); MEAN CORPUSCULAR HGB CONC 31.6 % (32.0-36.0); MONO % 9.5 % (0.0-8.0); NEUT % 83.9 % (16.0-70.0); PLATELET COUNT 161 TH/MM3 (150-450); RED BLOOD COUNT 4.07 MIL/MM3 (4.00-5.30); RED CELL DISTRIBUTION WIDTH 17.5 % (11.6-17.2); WHITE BLOOD COUNT 7.1 TH/MM3 (4.0-11.0)
[2016-07-14] MEDS: CHLORHEXIDINE GLUCONATE 2 % 1 PACK (2 CLOTHS)(taper/protocol) TOP SCH (04:00)
[2016-07-14 04:07] LABS: HEMO FLAGS AUTO DIFF
[2016-07-14 04:16] LABS: BICARBONATE 34.9 MEQ/L (21.0-32.0); MAGNESIUM 2.9 MG/DL (1.5-2.5); POTASSIUM 4.6 MEQ/L (3.5-5.1)
[2016-07-14] MEDS: PROPOFOL 1000 MG/100 ML IV SCH ×3 (04:31→20:58)
[2016-07-14] MEDS: methylPREDNISolone SOD SUCC 40 MG/1 ML VIAL IV PUSH SCH ×2 (05:44→21:09)
[2016-07-14] MEDS: INSULIN ASPART SUPPLEMENTAL SCALE SQ SCH (05:49)
[2016-07-14 07:03] LABS: BANDS 13 % (0-6); MYELOCYTES 1 % (0-0); NEUTROPHIL # MANUAL DIFF 6.5 TH/MM3 (1.8-7.7); PLATELET ESTIMATE SMEAR NORMAL (NORMAL); PLATELET MORPHOLOGY NORMAL (NORMAL); POLYS (SEG NEUTROPHILS) 77 % (16-70); SCAN/DIFF FINAL DIFF MANUAL; WBC DIFF SAMPLE 100
[2016-07-14] MEDS: ASPIRIN EC 81 MG TABEC PO SCH (08:17)
[2016-07-14] MEDS: DIPYRIDAMOLE/ASPIRIN 200 MG/25 MG CAP PO SCH ×2 (08:17→21:09)
[2016-07-14] MEDS: PANTOPRAZOLE SOD 20 MG DELAYED RELEASE TAB PO SCH (08:17)
[2016-07-14] MEDS: PRAVASTATIN SOD 40 MG TAB PO SCH (08:17)
[2016-07-14] MEDS: SODIUM CHLORIDE 0.9% FLUSH 5 ML FLUSH IVF PRN (08:18)
[2016-07-14] MEDS: CLOTRIMAZOLE 1% CREAM 15 GM TOPICAL SCH ×2 (08:18→21:09)
[2016-07-14] MEDS: HEPARIN SODIUM - SQ 10,000 UNITS/ML VIAL SQ SCH ×2 (08:18→21:09)
[2016-07-14] MEDS: FREE WATER G-TUBE SCH ×2 (10:00→21:00)
[2016-07-14] MEDS ORDERED: GLUCAGON 1 MG/ML VIAL OTHER PRN (10:00)
[2016-07-14] MEDS ORDERED: DEXTROSE 50% IN WATER 50 ML VIAL(D50) IV PUSH PRN (10:00)
--- NOTE | 2016-07-14 10:05 | HHI.CCPN ---
Subjective Remarks/Hospital Course 85 y/o female admitted with worsening sob. She's had difficulty breathing for about a week, with productive cough of yellowish sputum. she reports on and off fever over the past few days.according to ER, she was found to have a O2 sat of 70's at the time of EMS arrival. She is on BiPaP at the time of my evaluation. 07/12 Patient is sedated with Diprivan and intubated. Afebrile. 07/13 No acute events overnight. Sedated with Diprivan and intubated. Afebrile. 07/14 Patient remains sedated and intubated. ABG showed acute resp acidosis on CPAP yesterday. Afebrile. Objective Vital Signs Date Time Temp Pulse Resp B/P Pulse Ox O2 Delivery O2 Flow Rate FiO2 07/14/16 08:35 99 40 07/14/16 08:00 58 07/14/16 08:00 97.0 20 107/53 07/13/16 04:00 Mechanical Ventilator 07/11/16 23:17 15.00 Intake and Output 07/13/16 07/13/16 07/13/16 07:59 15:59 23:59 Intake Total 616 ml 859 ml 1401 ml Output Total 225 ml 425 ml 300 ml Balance 391 ml 434 ml 1101 ml Result Diagram: 07/14/16 0320 07/14/16 0320 Other Results Laboratory Tests Test 07/13/16 07/14/16 14:00 03:20 Blood Gas Puncture Site RT BRACHIAL Blood Gas Patient Temperature 98.6 Blood Gas HCO3 36 mmol/L Blood Gas Base Excess 9.1 mmol/L Blood Gas Oxygen Saturation 93 % Arterial Blood pH 7.29 Arterial Blood Partial 76 mmHg Pressure CO2 Arterial Blood Partial 90 mmHg Pressure O2 Arterial Blood Oxygen Content 15.8 Vol % Arterial Blood 1.4 % Carboxyhemoglobin Arterial Blood Methemoglobin 1.3 % Blood Gas Hemoglobin 12.0 G/DL Oxygen Delivery Device VENTILATOR Blood Gas Ventilator Setting 10/+5 Blood Gas Inspired Oxygen 40 % White Blood Count 7.1 TH/MM3 Red Blood Count 4.07 MIL/MM3 Hemoglobin 10.4 GM/DL Hematocrit 32.9 % Mean Corpuscular Volume 80.8 FL Mean Corpuscular Hemoglobin 25.5 PG Mean Corpuscular Hemoglobin 31.6 % Concent Red Cell Distribution Width 17.5 % Platelet Count 161 TH/MM3 Mean Platelet Volume 10.2 FL Neutrophils (%) (Auto) 83.9 % Lymphocytes (%) (Auto) 6.4 % Monocytes (%) (Auto) 9.5 % Eosinophils (%) (Auto) 0.0 % Basophils (%) (Auto) 0.2 % Neutrophils # (Auto) 5.9 TH/MM3 Lymphocytes # (Auto) 0.5 TH/MM3 Monocytes # (Auto) 0.7 TH/MM3 Eosinophils # (Auto) 0.0 TH/MM3 Basophils # (Auto) 0.0 TH/MM3 CBC Comment AUTO DIFF Differential Total Cells 100 Counted Neutrophils % (Manual) 77 % Band Neutrophils % 13 % Lymphocytes % 4 % Monocytes % 5 % Neutrophils # (Manual) 6.5 TH/MM3 Myelocytes 1 % Differential Comment FINAL DIFF MANUAL Platelet Estimate NORMAL Platelet Morphology Comment NORMAL Red Cell Morphology Comment NORMAL Sodium Level 149 MEQ/L Potassium Level 4.6 MEQ/L Chloride Level 108 MEQ/L Carbon Dioxide Level 34.9 MEQ/L Anion Gap 6 MEQ/L Blood Urea Nitrogen 53 MG/DL Creatinine 1.20 MG/DL Estimat Glomerular Filtration 43 ML/MIN Rate Random Glucose 229 MG/DL Calcium Level 7.9 MG/DL Phosphorus Level 2.7 MG/DL Magnesium Level 2.9 MG/DL Imaging Last Impressions Chest X-Ray 07/12/16 0038 Signed Impressions: Service Date/Time: Tuesday, July 12, 2016 00:43 - CONCLUSION: 1. Interval intubation with the endotracheal tube tip 2 cm above the mita. 2. Placement of right subclavian central venous line with no pneumothorax. 3. Coarse patchy opacity remains at the right lung base. Kahlil Mora MD Objective Remarks GENERAL: Patient is 85 yo sedated and intubated. SKIN: Warm and dry. HEAD: Normocephalic. EYES: No scleral icterus. No injection or drainage. NECK: Supple, trachea midline. No JVD or lymphadenopathy. Orally intubated. CARDIOVASCULAR: Regular rate and rhythm without murmurs, gallops, or rubs. RESPIRATORY: Breath sounds equal bilaterally. No accessory muscle use. GASTROINTESTINAL: Abdomen soft, non-tender, nondistended. MUSCULOSKELETAL: No cyanosis, or edema. Neuro: Intubated. A/P Problem List: (1) COPD with acute exacerbation ICD Code: J44.1 Status: Acute (2) Diabetes mellitus type 2, uncontrolled ICD Code: E11.9 Status: Chronic (3) Chronic diastolic congestive heart failure ICD Code: I50.32 Status: Chronic Assessment and Plan 1)VDRF 2)COPD exacerbation 3)Mild IZA 4)Anemia 5)Hx HTN 6)DM 7)Hx CHF 8)Hx CVA Plan Neuro: On Diprivan infusion for sedation , daily sedation vacation. Pulm: Continue with vent support keep sat >92% Bronchodilators, decrease Solumederol 40mg Q12 ICU vent bundle, CPAP trials as leida CV: Monitor HR and BP keep MAP>65mmHg. On ASA, Pravastatin daily : Monitor renal function, I/O's, electrolytes replacement per protocol. Decrease NS 40ml/hr, diurese with Lasix 20mg x1 Place on Free H20 200ml Q12 monitor Sodium level. GI: On Protonix 20mg daily On TF-Glucerna 1.5@ 45ml/hr ID: Continue with abx ( Levaquin) monitor for signs of infections ( Fever, WBC) Strep pneumonia and Legionella Ag negative. F heme: Monitor CBC Endo: Increase SSI( Medium scale) with accuchecks for glycemic control DVT/GI prophylaxis - Heparin subQ/ Pantoprazole Lines: Right subclavian CVP placed 07/12 CCT 30 mins Neil Roque MD Jul 14, 2016 10:05
[2016-07-14] MEDS ORDERED: FUROSEMIDE 20 MG/2 ML VIAL IV PUSH ONE (10:30)
[2016-07-14] MEDS: INSULIN NovoLIN REGULAR SUPPLEMENTAL SCALE SQ SCH ×3 (10:56→21:35)
[2016-07-14] MEDS: LEVOFLOXACIN 250 MG PREMIX INJ 50 ML IV SCH (23:12)
[2016-07-15] VITALS (21 sets, daily range): BP systolic 96–149; BP diastolic 48–68; PULSE 60–86; RESP 20; TEMP 97.2–98.3; O2SAT 93–99
[2016-07-15] MEDS: RESP: ALBUTEROL 2.5 MG/IPRATROPIUM 0.5 MG NEB (SCH) NEB ×4 (03:26→22:31)
[2016-07-15] MEDS: INSULIN NovoLIN REGULAR SUPPLEMENTAL SCALE SQ SCH ×4 (03:51→22:54)
[2016-07-15 04:35] LABS: AUTOMATED NEUTROPHIL # 7.9 TH/MM3 (1.8-7.7); BASOPHIL % 0.1 % (0.0-2.0); EOSINOPHIL % 0.1 % (0.0-4.0); HEMATOCRIT 33.4 % (35.0-46.0); HEMO FLAGS DIFF FINAL; LYMPHOCYTE # 0.7 TH/MM3 (1.0-4.8); MEAN CELL VOLUME 81.1 FL (80.0-100.0); MEAN CORPUSCULAR HEMOGLOBIN 25.1 PG (27.0-34.0); MONO % 6.8 % (0.0-8.0); PLATELET COUNT 151 TH/MM3 (150-450); RED BLOOD COUNT 4.12 MIL/MM3 (4.00-5.30); RED CELL DISTRIBUTION WIDTH 16.9 % (11.6-17.2); WHITE BLOOD COUNT 9.3 TH/MM3 (4.0-11.0)
[2016-07-15] MEDS: PROPOFOL 1000 MG/100 ML IV SCH ×4 (04:45→22:50)
[2016-07-15 04:53] LABS: BICARBONATE 36.5 MEQ/L (21.0-32.0); MAGNESIUM 2.9 MG/DL (1.5-2.5); POTASSIUM 5.1 MEQ/L (3.5-5.1)
--- NOTE | 2016-07-15 09:34 | HHI.CCPN ---
Subjective Remarks/Hospital Course 85 y/o female admitted with worsening sob. She's had difficulty breathing for about a week, with productive cough of yellowish sputum. she reports on and off fever over the past few days.according to ER, she was found to have a O2 sat of 70's at the time of EMS arrival. She is on BiPaP at the time of my evaluation. 07/12 Patient is sedated with Diprivan and intubated. Afebrile. 07/13 No acute events overnight. Sedated with Diprivan and intubated. Afebrile. 07/14 Patient remains sedated and intubated. ABG showed acute resp acidosis on CPAP yesterday. Afebrile. 07/15 No acute events overnight. Did not tolerate CPAP trials yesterday. Sedated and intubated. Objective Vital Signs Date Time Temp Pulse Resp B/P Pulse Ox O2 Delivery O2 Flow Rate FiO2 07/15/16 08:45 96 40 07/15/16 06:00 60 07/15/16 04:00 97.5 20 124/58 07/13/16 04:00 Mechanical Ventilator 07/11/16 23:17 15.00 Intake and Output 07/14/16 07/14/16 07/14/16 07:59 15:59 23:59 Intake Total 967 ml 1350 ml 934 ml Output Total 275 ml 1200 ml 375 ml Balance 692 ml 150 ml 559 ml Result Diagram: 07/15/16 0400 07/15/16 0400 Other Results Laboratory Tests Test 07/15/16 04:00 White Blood Count 9.3 TH/MM3 Red Blood Count 4.12 MIL/MM3 Hemoglobin 10.3 GM/DL Hematocrit 33.4 % Mean Corpuscular Volume 81.1 FL Mean Corpuscular Hemoglobin 25.1 PG Mean Corpuscular Hemoglobin 31.0 % Concent Red Cell Distribution Width 16.9 % Platelet Count 151 TH/MM3 Mean Platelet Volume 10.1 FL Neutrophils (%) (Auto) 85.0 % Lymphocytes (%) (Auto) 8.0 % Monocytes (%) (Auto) 6.8 % Eosinophils (%) (Auto) 0.1 % Basophils (%) (Auto) 0.1 % Neutrophils # (Auto) 7.9 TH/MM3 Lymphocytes # (Auto) 0.7 TH/MM3 Monocytes # (Auto) 0.6 TH/MM3 Eosinophils # (Auto) 0.0 TH/MM3 Basophils # (Auto) 0.0 TH/MM3 CBC Comment DIFF FINAL Differential Comment Sodium Level 149 MEQ/L Potassium Level 5.1 MEQ/L Chloride Level 109 MEQ/L Carbon Dioxide Level 36.5 MEQ/L Anion Gap 4 MEQ/L Blood Urea Nitrogen 54 MG/DL Creatinine 1.13 MG/DL Estimat Glomerular Filtration 46 ML/MIN Rate Random Glucose 232 MG/DL Calcium Level 8.1 MG/DL Phosphorus Level 2.5 MG/DL Magnesium Level 2.9 MG/DL Imaging Last Impressions Chest X-Ray 07/12/16 0038 Signed Impressions: Service Date/Time: Tuesday, July 12, 2016 00:43 - CONCLUSION: 1. Interval intubation with the endotracheal tube tip 2 cm above the mita. 2. Placement of right subclavian central venous line with no pneumothorax. 3. Coarse patchy opacity remains at the right lung base. Kahlil Mora MD Objective Remarks GENERAL: Patient is 85 yo sedated and intubated. SKIN: Warm and dry. HEAD: Normocephalic. EYES: No scleral icterus. No injection or drainage. NECK: Supple, trachea midline. No JVD or lymphadenopathy. Orally intubated. CARDIOVASCULAR: Regular rate and rhythm without murmurs, gallops, or rubs. RESPIRATORY: Breath sounds equal bilaterally. No accessory muscle use. GASTROINTESTINAL: Abdomen soft, non-tender, nondistended. MUSCULOSKELETAL: No cyanosis, or edema. Neuro: Intubated. A/P Problem List: (1) COPD with acute exacerbation ICD Code: J44.1 Status: Acute (2) Diabetes mellitus type 2, uncontrolled ICD Code: E11.9 Status: Chronic (3) Chronic diastolic congestive heart failure ICD Code: I50.32 Status: Chronic Assessment and Plan 1)VDRF 2)COPD exacerbation 3)Mild IZA 4)Anemia 5)Hx HTN 6)DM 7)Hx CHF 8)Hx CVA Plan Neuro: On Diprivan infusion for sedation , daily sedation vacation. Pulm: Continue with vent support keep sat >92% Bronchodilators, Solumederol 40mg Q12 ICU vent bundle, CPAP trials as leida. Check ABG CV: Monitor HR and BP keep MAP>65mmHg. On ASA, Pravastatin daily : Monitor renal function, I/O's, electrolytes replacement per protocol. Diurese with Bumex 1mg x1 Change Free H20 250ml Q8, monitor Sodium level. GI: On Protonix 20mg daily On TF-Glucerna 1.5@ 45ml/hr ID: Continue with abx ( Levaquin) monitor for signs of infections ( Fever, WBC) Strep pneumonia and Legionella Ag negative. heme: Monitor CBC Endo: SSI( Medium scale) with accuchecks, add Levemir 5u Q12 for glycemic control DVT/GI prophylaxis - Heparin subQ/ Pantoprazole Lines: Right subclavian CVP placed 07/12 CCT 30 mins Neil Roque MD Jul 15, 2016 09:34
[2016-07-15] MEDS ORDERED: BUMETANIDE INJ 1 MG/4 ML VIAL IV PUSH ONE (10:00)
[2016-07-15] MEDS: methylPREDNISolone SOD SUCC 40 MG/1 ML VIAL IV PUSH SCH ×2 (10:03→20:29)
[2016-07-15] MEDS: HEPARIN SODIUM - SQ 10,000 UNITS/ML VIAL SQ SCH ×2 (10:03→20:29)
[2016-07-15] MEDS: PANTOPRAZOLE SOD 20 MG DELAYED RELEASE TAB PO SCH (10:04)
[2016-07-15] MEDS: SODIUM CHLORIDE 0.9% FLUSH 5 ML FLUSH IVF PRN (10:04)
[2016-07-15] MEDS: ASPIRIN EC 81 MG TABEC PO SCH (10:04)
[2016-07-15] MEDS: PRAVASTATIN SOD 40 MG TAB PO SCH (10:04)
[2016-07-15] MEDS: DIPYRIDAMOLE/ASPIRIN 200 MG/25 MG CAP PO SCH ×2 (10:04→20:29)
[2016-07-15] MEDS: CLOTRIMAZOLE 1% CREAM 15 GM TOPICAL SCH ×2 (10:05→20:29)
[2016-07-15] MEDS: INSULIN DETEMIR 100 UNITS/ML VIAL SQ SCH ×2 (10:27→20:28)
[2016-07-15 11:39] LABS: BLOOD GAS BASE EXCESS 10.2 mmol/L (-2-2); BLOOD GAS CARBOXYHEMOGLOBIN 1.7 % (0-4); BLOOD GAS HCO3 36 mmol/L (22-26); BLOOD GAS METHEMOGLOBIN 1.2 % (0-2); BLOOD GAS O2 HGB SATURATION 95 % (90-100); BLOOD GAS OXYGEN CONTENT 15.8 Vol % (12.0-20.0); BLOOD GAS PCO2 65 mmHg (38-42); BLOOD GAS PO2 105 mmHg (61-120); BLOOD GAS TOTAL HGB 11.7 G/DL (12.0-16.0); CRITICAL VALUE YES; DRAW SITE LT RADIAL; FIO2 40 %; NUMBER OF ARTERIAL PUNCTURES 1; OXYGEN DEVICE VENTILATOR; TEMP CORR TO 98.6; VENT SETTINGS CPAP PEEP5/PS15
[2016-07-15 11:40] LABS: STAT NO
[2016-07-15] MEDS: FREE WATER G-TUBE SCH ×2 (13:45→22:00)
[2016-07-15] MEDS: LEVOFLOXACIN 250 MG PREMIX INJ 50 ML IV SCH (23:09)
[2016-07-16] VITALS (14 sets, daily range): BP systolic 99–122; BP diastolic 52–56; PULSE 56–89; RESP 20–21; TEMP 97.7–99; O2SAT 95–100
[2016-07-16] MEDS: INSULIN NovoLIN REGULAR SUPPLEMENTAL SCALE SQ SCH ×4 (04:28→21:08)
[2016-07-16] MEDS: RESP: ALBUTEROL 2.5 MG/IPRATROPIUM 0.5 MG NEB (SCH) NEB ×2 (04:41→08:06)
[2016-07-16] MEDS: PROPOFOL 1000 MG/100 ML IV SCH ×3 (05:13→18:51)
[2016-07-16] MEDS: FREE WATER G-TUBE SCH ×4 (06:00→22:23)
[2016-07-16 06:04] LABS: AUTOMATED NEUTROPHIL # 9.2 TH/MM3 (1.8-7.7); EOSINOPHIL % 0.4 % (0.0-4.0); HEMATOCRIT 32.3 % (35.0-46.0); LYMPH % 13.1 % (9.0-44.0); LYMPHOCYTE # 1.5 TH/MM3 (1.0-4.8); MEAN CELL VOLUME 80.4 FL (80.0-100.0); MEAN CORPUSCULAR HEMOGLOBIN 24.7 PG (27.0-34.0); MEAN CORPUSCULAR HGB CONC 30.8 % (32.0-36.0); MONO % 4.9 % (0.0-8.0); NEUT % 81.6 % (16.0-70.0); PLATELET COUNT 158 TH/MM3 (150-450); RED BLOOD COUNT 4.02 MIL/MM3 (4.00-5.30); RED CELL DISTRIBUTION WIDTH 17.2 % (11.6-17.2); WHITE BLOOD COUNT 11.2 TH/MM3 (4.0-11.0)
[2016-07-16 06:10] LABS: HEMO FLAGS AUTO DIFF
[2016-07-16 06:19] LABS: BICARBONATE 39.6 MEQ/L (21.0-32.0); POTASSIUM 4.9 MEQ/L (3.5-5.1)
--- NOTE | 2016-07-16 08:35 | HHI.CCPN ---
Subjective Remarks/Hospital Course 85 y/o female admitted with worsening sob. She's had difficulty breathing for about a week, with productive cough of yellowish sputum. she reports on and off fever over the past few days.according to ER, she was found to have a O2 sat of 70's at the time of EMS arrival. She is on BiPaP at the time of my evaluation. 07/12 Patient is sedated with Diprivan and intubated. Afebrile. 07/13 No acute events overnight. Sedated with Diprivan and intubated. Afebrile. 07/14 Patient remains sedated and intubated. ABG showed acute resp acidosis on CPAP yesterday. Afebrile. 07/15 No acute events overnight. Did not tolerate CPAP trials yesterday. Sedated and intubated. 07/16 No acute events overnight. Sedated with diprivan and intubated. Afebrile. Objective Vital Signs Date Time Temp Pulse Resp B/P Pulse Ox O2 Delivery O2 Flow Rate FiO2 07/16/16 08:06 97 40 07/16/16 06:00 69 07/16/16 04:00 97.7 20 111/53 07/13/16 04:00 Mechanical Ventilator Intake and Output 07/15/16 07/15/16 07/16/16 08:00 16:00 00:00 Intake Total 485 ml 1405 ml 1145 ml Output Total 350 ml 1900 ml 550 ml Balance 135 ml -495 ml 595 ml Result Diagram: 07/16/16 0530 07/16/16 0530 Other Results Laboratory Tests Test 07/15/16 07/16/16 11:29 05:30 Blood Gas Puncture Site LT RADIAL Blood Gas Patient Temperature 98.6 Blood Gas HCO3 36 mmol/L Blood Gas Base Excess 10.2 mmol/L Blood Gas Oxygen Saturation 95 % Arterial Blood pH 7.36 Arterial Blood Partial 65 mmHg Pressure CO2 Arterial Blood Partial 105 mmHg Pressure O2 Arterial Blood Oxygen Content 15.8 Vol % Arterial Blood 1.7 % Carboxyhemoglobin Arterial Blood Methemoglobin 1.2 % Blood Gas Hemoglobin 11.7 G/DL Oxygen Delivery Device VENTILATOR Blood Gas Ventilator Setting CPAP PEEP5/PS15 Blood Gas Inspired Oxygen 40 % White Blood Count 11.2 TH/MM3 Red Blood Count 4.02 MIL/MM3 Hemoglobin 9.9 GM/DL Hematocrit 32.3 % Mean Corpuscular Volume 80.4 FL Mean Corpuscular Hemoglobin 24.7 PG Mean Corpuscular Hemoglobin 30.8 % Concent Red Cell Distribution Width 17.2 % Platelet Count 158 TH/MM3 Mean Platelet Volume 10.5 FL Neutrophils (%) (Auto) 81.6 % Lymphocytes (%) (Auto) 13.1 % Monocytes (%) (Auto) 4.9 % Eosinophils (%) (Auto) 0.4 % Basophils (%) (Auto) 0.0 % Neutrophils # (Auto) 9.2 TH/MM3 Lymphocytes # (Auto) 1.5 TH/MM3 Monocytes # (Auto) 0.6 TH/MM3 Eosinophils # (Auto) 0.0 TH/MM3 Basophils # (Auto) 0.0 TH/MM3 CBC Comment AUTO DIFF Sodium Level 148 MEQ/L Potassium Level 4.9 MEQ/L Chloride Level 104 MEQ/L Carbon Dioxide Level 39.6 MEQ/L Anion Gap 4 MEQ/L Blood Urea Nitrogen 55 MG/DL Creatinine 1.08 MG/DL Estimat Glomerular Filtration 48 ML/MIN Rate Random Glucose 179 MG/DL Calcium Level 8.2 MG/DL Imaging Last Impressions Chest X-Ray 07/12/16 0038 Signed Impressions: Service Date/Time: Tuesday, July 12, 2016 00:43 - CONCLUSION: 1. Interval intubation with the endotracheal tube tip 2 cm above the mita. 2. Placement of right subclavian central venous line with no pneumothorax. 3. Coarse patchy opacity remains at the right lung base. Kahlil Mora MD Objective Remarks GENERAL: Patient is 85 yo sedated and intubated. SKIN: Warm and dry. HEAD: Normocephalic. EYES: No scleral icterus. No injection or drainage. NECK: Supple, trachea midline. No JVD or lymphadenopathy. Orally intubated. CARDIOVASCULAR: Regular rate and rhythm without murmurs, gallops, or rubs. RESPIRATORY: Breath sounds equal bilaterally. No accessory muscle use. GASTROINTESTINAL: Abdomen soft, non-tender, nondistended. MUSCULOSKELETAL: No cyanosis, or edema. Neuro: Intubated. A/P Problem List: (1) COPD with acute exacerbation ICD Code: J44.1 Status: Acute (2) Diabetes mellitus type 2, uncontrolled ICD Code: E11.9 Status: Chronic (3) Chronic diastolic congestive heart failure ICD Code: I50.32 Status: Chronic Assessment and Plan 1)VDRF 2)COPD exacerbation 3)Mild IZA 4)Anemia 5)Hx HTN 6)DM 7)Hx CHF 8)Hx CVA Plan Neuro: On Diprivan infusion for sedation , daily sedation vacation. Pulm: Continue with vent support keep sat >92% Bronchodilators, Solumederol 40mg Q12 ICU vent bundle, CPAP trials as leida CV: Monitor HR and BP keep MAP>65mmHg. On ASA, Pravastatin daily : Monitor renal function, I/O's, electrolytes replacement per protocol. Change Free H20 250ml Q6, monitor Sodium level. GI: On Protonix 40mg daily On TF-Glucerna 1.5@ 45ml/hr ID: Continue with abx ( Levaquin) monitor for signs of infections ( Fever, WBC) Strep pneumonia and Legionella Ag negative. 07/12 Sputum cx: Staph Aureus- sensitive to Levaquin. Heme: Monitor CBC Endo: SSI( Medium scale) with accuchecks, Levemir 5u Q12 DVT/GI prophylaxis - Heparin subQ/ Pantoprazole Lines: Right subclavian CVP placed 07/12 CCT 30 mins Neil Roque MD Jul 16, 2016 08:35
[2016-07-16] MEDS: PANTOPRAZOLE SODIUM 40 MG VIAL IV PUSH SCH (09:58)
[2016-07-16] MEDS: methylPREDNISolone SOD SUCC 40 MG/1 ML VIAL IV PUSH SCH ×2 (09:58→20:57)
[2016-07-16] MEDS: DIPYRIDAMOLE/ASPIRIN 200 MG/25 MG CAP PO SCH ×2 (09:59→20:58)
[2016-07-16] MEDS: ASPIRIN EC 81 MG TABEC PO SCH (09:59)
[2016-07-16] MEDS: INSULIN DETEMIR 100 UNITS/ML VIAL SQ SCH ×2 (09:59→20:58)
[2016-07-16] MEDS: HEPARIN SODIUM - SQ 10,000 UNITS/ML VIAL SQ SCH ×2 (09:59→20:58)
[2016-07-16] MEDS: CLOTRIMAZOLE 1% CREAM 15 GM TOPICAL SCH ×2 (10:00→20:58)
[2016-07-16] MEDS: PRAVASTATIN SOD 40 MG TAB PO SCH (10:00)
[2016-07-16 11:25] LABS: SCAN/DIFF AUTO DIFF CONFIRMED
[2016-07-16] MEDS: LEVOFLOXACIN 250 MG PREMIX INJ 50 ML IV SCH (22:22)
[2016-07-17] VITALS (16 sets, daily range): BP systolic 95–137; BP diastolic 47–64; PULSE 59–99; RESP 20–24; TEMP 98–99; O2SAT 92–99
[2016-07-17] MEDS: PROPOFOL 1000 MG/100 ML IV SCH ×3 (00:28→23:54)
[2016-07-17 03:46] LABS: BASOPHIL % 0.1 % (0.0-2.0); EOSINOPHIL # 0.1 TH/MM3 (0-0.4); EOSINOPHIL % 0.8 % (0.0-4.0); HEMATOCRIT 31.3 % (35.0-46.0); HEMO FLAGS AUTO DIFF; LYMPH % 6.8 % (9.0-44.0); LYMPHOCYTE # 0.9 TH/MM3 (1.0-4.8); MEAN CELL VOLUME 79.8 FL (80.0-100.0); MEAN CORPUSCULAR HEMOGLOBIN 25.1 PG (27.0-34.0); MEAN CORPUSCULAR HGB CONC 31.4 % (32.0-36.0); MONO % 5.1 % (0.0-8.0); NEUT % 87.2 % (16.0-70.0); PLATELET COUNT 156 TH/MM3 (150-450); RED BLOOD COUNT 3.92 MIL/MM3 (4.00-5.30); RED CELL DISTRIBUTION WIDTH 17.2 % (11.6-17.2); WHITE BLOOD COUNT 13.8 TH/MM3 (4.0-11.0)
[2016-07-17 04:04] LABS: BICARBONATE 38.5 MEQ/L (21.0-32.0); POTASSIUM 5.3 MEQ/L (3.5-5.1)
[2016-07-17] MEDS: INSULIN NovoLIN REGULAR SUPPLEMENTAL SCALE SQ SCH ×5 (04:26→22:00)
[2016-07-17] MEDS: FREE WATER G-TUBE SCH ×4 (04:35→23:54)
[2016-07-17 04:41] LABS: SCAN/DIFF AUTO DIFF CONFIRMED
[2016-07-17 04:42] LABS: PLATELET ESTIMATE SMEAR NORMAL (NORMAL); PLATELET MORPHOLOGY NORMAL (NORMAL)
--- NOTE | 2016-07-17 08:45 | HHI.CCPN ---
Subjective Remarks/Hospital Course 85 y/o female admitted with worsening sob. She's had difficulty breathing for about a week, with productive cough of yellowish sputum. she reports on and off fever over the past few days.according to ER, she was found to have a O2 sat of 70's at the time of EMS arrival. She is on BiPaP at the time of my evaluation. 07/12 Patient is sedated with Diprivan and intubated. Afebrile. 07/13 No acute events overnight. Sedated with Diprivan and intubated. Afebrile. 07/14 Patient remains sedated and intubated. ABG showed acute resp acidosis on CPAP yesterday. Afebrile. 07/15 No acute events overnight. Did not tolerate CPAP trials yesterday. Sedated and intubated. 07/16 No acute events overnight. Sedated with diprivan and intubated. Afebrile. 07/17 Patient tolerated CPAP trials for 1.5 hr yesterday then became tachypneic. No events overnight. Sedated with Diprivan and intubated. Afebrile. Objective Vital Signs Date Time Temp Pulse Resp B/P Pulse Ox O2 Delivery O2 Flow Rate FiO2 07/17/16 08:00 98.4 69 20 110/51 98 07/17/16 08:00 40 Intake and Output 07/16/16 07/16/16 07/16/16 07:59 15:59 23:59 Intake Total 1110 ml 805 ml 1140 ml Output Total 350 ml 300 ml 550 ml Balance 760 ml 505 ml 590 ml Result Diagram: 07/17/16 0325 07/17/16 0325 Other Results Laboratory Tests Test 07/17/16 03:25 White Blood Count 13.8 TH/MM3 Red Blood Count 3.92 MIL/MM3 Hemoglobin 9.8 GM/DL Hematocrit 31.3 % Mean Corpuscular Volume 79.8 FL Mean Corpuscular Hemoglobin 25.1 PG Mean Corpuscular Hemoglobin 31.4 % Concent Red Cell Distribution Width 17.2 % Platelet Count 156 TH/MM3 Mean Platelet Volume 10.2 FL Neutrophils (%) (Auto) 87.2 % Lymphocytes (%) (Auto) 6.8 % Monocytes (%) (Auto) 5.1 % Eosinophils (%) (Auto) 0.8 % Basophils (%) (Auto) 0.1 % Neutrophils # (Auto) 12.0 TH/MM3 Lymphocytes # (Auto) 0.9 TH/MM3 Monocytes # (Auto) 0.7 TH/MM3 Eosinophils # (Auto) 0.1 TH/MM3 Basophils # (Auto) 0.0 TH/MM3 CBC Comment AUTO DIFF Differential Comment AUTO DIFF CONFIRMED Platelet Estimate NORMAL Platelet Morphology Comment NORMAL Sodium Level 146 MEQ/L Potassium Level 5.3 MEQ/L Chloride Level 104 MEQ/L Carbon Dioxide Level 38.5 MEQ/L Anion Gap 4 MEQ/L Blood Urea Nitrogen 59 MG/DL Creatinine 1.17 MG/DL Estimat Glomerular Filtration 44 ML/MIN Rate Random Glucose 167 MG/DL Calcium Level 8.3 MG/DL Imaging Last Impressions Chest X-Ray 07/12/16 0038 Signed Impressions: Service Date/Time: Sunday, July 12, 2016 00:43 - CONCLUSION: 1. Interval intubation with the endotracheal tube tip 2 cm above the mita. 2. Placement of right subclavian central venous line with no pneumothorax. 3. Coarse patchy opacity remains at the right lung base. Kahlil Mora MD Objective Remarks GENERAL: Patient is 85 yo sedated and intubated. SKIN: Warm and dry. HEAD: Normocephalic. EYES: No scleral icterus. No injection or drainage. NECK: Supple, trachea midline. No JVD or lymphadenopathy. Orally intubated. CARDIOVASCULAR: Regular rate and rhythm without murmurs, gallops, or rubs. RESPIRATORY: Breath sounds equal bilaterally. No accessory muscle use. GASTROINTESTINAL: Abdomen soft, non-tender, nondistended. MUSCULOSKELETAL: No cyanosis, or edema. Neuro: Intubated. A/P Problem List: (1) COPD with acute exacerbation ICD Code: J44.1 Status: Acute (2) Diabetes mellitus type 2, uncontrolled ICD Code: E11.9 Status: Chronic (3) Chronic diastolic congestive heart failure ICD Code: I50.32 Status: Chronic Assessment and Plan 1)VDRF 2)COPD exacerbation 3)Mild IZA 4)Anemia 5)Hx HTN 6)DM 7)Hx CHF 8)Hx CVA Plan Neuro: On Diprivan infusion for sedation , daily sedation vacation. Pulm: Continue with vent support keep sat >92% Bronchodilators, Solumederol 40mg Q12 ICU vent bundle, CPAP trials as leida. Check CXR CV: Monitor HR and BP keep MAP>65mmHg. On ASA, Pravastatin daily : Monitor renal function, I/O's, electrolytes replacement per protocol. Free H20 250ml Q6, monitor Sodium level. Place on 07/17 NS@42ml/hr GI: On Protonix 40mg daily On TF-Glucerna 1.5@ 45ml/hr ID: Continue with abx ( Levaquin) monitor for signs of infections ( Fever, WBC) Strep pneumonia and Legionella Ag negative. 07/12 Sputum cx: Staph Aureus- sensitive to Levaquin. Heme: Monitor CBC Endo: SSI( Medium scale) with accuchecks, Levemir 5u Q12 DVT/GI prophylaxis - Heparin subQ/ Pantoprazole Lines: Right subclavian CVP placed 07/12 CCT 30 mins Neil Roque MD Jul 17, 2016 08:45
[2016-07-17] MEDS: SODIUM CHLORIDE 0.9% FLUSH 5 ML FLUSH IVF PRN (09:02)
[2016-07-17] MEDS: PANTOPRAZOLE SODIUM 40 MG VIAL IV PUSH SCH (09:02)
[2016-07-17] MEDS: HEPARIN SODIUM - SQ 10,000 UNITS/ML VIAL SQ SCH ×2 (09:02→20:03)
[2016-07-17] MEDS: ASPIRIN EC 81 MG TABEC PO SCH (09:02)
[2016-07-17] MEDS: DIPYRIDAMOLE/ASPIRIN 200 MG/25 MG CAP PO SCH ×2 (09:02→20:02)
[2016-07-17] MEDS: PRAVASTATIN SOD 40 MG TAB PO SCH (09:02)
[2016-07-17] MEDS: methylPREDNISolone SOD SUCC 40 MG/1 ML VIAL IV PUSH SCH ×2 (09:03→20:03)
[2016-07-17] MEDS: INSULIN DETEMIR 100 UNITS/ML VIAL SQ SCH ×2 (09:03→20:03)
[2016-07-17] MEDS: CLOTRIMAZOLE 1% CREAM 15 GM TOPICAL SCH ×2 (09:03→20:03)
[2016-07-17] MEDS: SODIUM CHLOR 0.45% 1000 ML INJ 1,000 ML IV SCH (09:05)
--- NOTE | 2016-07-17 09:33 | RADRPT ---
EXAM DATE/TIME: 07/17/2016 09:00 [facility] COMPARISON: CHEST SINGLE AP, July 12, 2016, 0:43. INDICATIONS : Respiratory status. MEDICAL HISTORY : Chronic obstructive pulmonary disease. Congestive heart failure. Emphysema. SURGICAL HISTORY : None. ENCOUNTER: Subsequent ACUITY: 1 week PAIN SCORE: Non-responsive. LOCATION: Bilateral upper chest FINDINGS: There is hyperinflation. Endotracheal tube tip in satisfactory position. Enteric tube courses beneath the diaphragm. Left subclavian line tip overlies the SVC. There is consolidation at the right lung b ase suspected. CONCLUSION: Right basilar airspace disease suspected.. Alejandro Bejarano MD on July 17, 2016 at 9:31 Board Certified Radiologist. This report was verified electronically.
[2016-07-17 14:45] LABS: BLOOD GAS BASE EXCESS 10.8 mmol/L (-2-2); BLOOD GAS CARBOXYHEMOGLOBIN 1.4 % (0-4); BLOOD GAS HCO3 37 mmol/L (22-26); BLOOD GAS METHEMOGLOBIN 1.1 % (0-2); BLOOD GAS O2 HGB SATURATION 92 % (90-100); BLOOD GAS OXYGEN CONTENT 14.4 Vol % (12.0-20.0); BLOOD GAS PCO2 70 mmHg (38-42); BLOOD GAS PO2 79 mmHg (61-120); BLOOD GAS TOTAL HGB 11.1 G/DL (12.0-16.0); TEMP CORR TO 98.6
[2016-07-17 14:46] LABS: CRITICAL VALUE YES; DRAW SITE RT RADIAL; FIO2 40 %; NUMBER OF ARTERIAL PUNCTURES 1; OXYGEN DEVICE VENTILATOR; STAT NO; ULNAR PULSE PRESENT; VENT SETTINGS CPAP+5/PS+10
[2016-07-17] MEDS ORDERED: BUMETANIDE INJ 1 MG/4 ML VIAL IV PUSH ONE (16:45)
[2016-07-17 21:29] LABS: CRITICAL VALUE YES
[2016-07-17] MEDS: LEVOFLOXACIN 250 MG PREMIX INJ 50 ML IV SCH (23:04)
[2016-07-18] VITALS (17 sets, daily range): BP systolic 106–128; BP diastolic 52–74; PULSE 63–92; RESP 20–25; TEMP 98.1–98.9; O2SAT 94–98
[2016-07-18] MEDS: INSULIN NovoLIN REGULAR SUPPLEMENTAL SCALE SQ SCH ×4 (04:00→22:00)
[2016-07-18] MEDS: FREE WATER G-TUBE SCH ×2 (05:00→20:10)
[2016-07-18 05:05] LABS: AUTOMATED NEUTROPHIL # 13.9 TH/MM3 (1.8-7.7); BASOPHIL % 0.1 % (0.0-2.0); EOSINOPHIL # 0.3 TH/MM3 (0-0.4); EOSINOPHIL % 1.9 % (0.0-4.0); LYMPH % 8.4 % (9.0-44.0); LYMPHOCYTE # 1.4 TH/MM3 (1.0-4.8); MEAN CELL VOLUME 80.5 FL (80.0-100.0); MEAN CORPUSCULAR HGB CONC 31.1 % (32.0-36.0); NEUT % 82.6 % (16.0-70.0); PLATELET COUNT 183 TH/MM3 (150-450); RED BLOOD COUNT 3.98 MIL/MM3 (4.00-5.30); WHITE BLOOD COUNT 16.8 TH/MM3 (4.0-11.0)
[2016-07-18 05:18] LABS: HEMO FLAGS AUTO DIFF
[2016-07-18 05:22] LABS: BICARBONATE 41.4 MEQ/L (21.0-32.0); MAGNESIUM 2.9 MG/DL (1.5-2.5); POTASSIUM 4.6 MEQ/L (3.5-5.1)
[2016-07-18 07:05] LABS: BANDS 1 % (0-6); EOSINOPHILS 4 % (0-4); METAMYELOCYTES 1 % (0-1); MYELOCYTES 2 % (0-0); NEUTROPHIL # MANUAL DIFF 13.4 TH/MM3 (1.8-7.7); PLATELET ESTIMATE SMEAR NORMAL (NORMAL); PLATELET MORPHOLOGY ENLARGED (NORMAL); POLYS (SEG NEUTROPHILS) 76 % (16-70); SCAN/DIFF FINAL DIFF MANUAL; WBC DIFF SAMPLE 100
[2016-07-18] MEDS: SODIUM CHLOR 0.45% 1000 ML INJ 1,000 ML IV SCH (07:23)
[2016-07-18] MEDS: HEPARIN SODIUM - SQ 10,000 UNITS/ML VIAL SQ SCH ×2 (08:53→20:10)
[2016-07-18] MEDS: methylPREDNISolone SOD SUCC 40 MG/1 ML VIAL IV PUSH SCH (08:53)
[2016-07-18] MEDS: PRAVASTATIN SOD 40 MG TAB PO SCH (08:54)
[2016-07-18] MEDS: DIPYRIDAMOLE/ASPIRIN 200 MG/25 MG CAP PO SCH ×2 (08:54→20:09)
[2016-07-18] MEDS: PANTOPRAZOLE SODIUM 40 MG VIAL IV PUSH SCH (08:55)
[2016-07-18] MEDS: ASPIRIN EC 81 MG TABEC PO SCH (08:55)
[2016-07-18] MEDS: CLOTRIMAZOLE 1% CREAM 15 GM TOPICAL SCH ×2 (08:55→20:10)
[2016-07-18] MEDS: INSULIN DETEMIR 100 UNITS/ML VIAL SQ SCH (08:55)
--- NOTE | 2016-07-18 09:15 | HHI.CCPN ---
Subjective Remarks/Hospital Course 85 y/o female admitted with worsening sob. She's had difficulty breathing for about a week, with productive cough of yellowish sputum. she reports on and off fever over the past few days.according to ER, she was found to have a O2 sat of 70's at the time of EMS arrival. She is on BiPaP at the time of my evaluation. 07/12 Patient is sedated with Diprivan and intubated. Afebrile. 07/13 No acute events overnight. Sedated with Diprivan and intubated. Afebrile. 07/14 Patient remains sedated and intubated. ABG showed acute resp acidosis on CPAP yesterday. Afebrile. 07/15 No acute events overnight. Did not tolerate CPAP trials yesterday. Sedated and intubated. 07/16 No acute events overnight. Sedated with diprivan and intubated. Afebrile. 07/17 Patient tolerated CPAP trials for 1.5 hr yesterday then became tachypneic. No events overnight. Sedated with Diprivan and intubated. Afebrile. 07/18 Patient remains sedated and intubated. Did not tolerate CPAP trials yesterday. Afebrile Objective Vital Signs Date Time Temp Pulse Resp B/P Pulse Ox O2 Delivery O2 Flow Rate FiO2 07/18/16 08:00 98.7 71 21 119/58 98 07/18/16 08:00 40 Intake and Output 07/17/16 07/17/16 07/18/16 08:00 16:00 00:00 Intake Total 738 ml 598 ml 1055 ml Output Total 400 ml 800 ml 1050 ml Balance 338 ml -202 ml 5 ml Result Diagram: 07/18/16 0335 07/18/16 0335 Other Results Laboratory Tests Test 07/17/16 07/17/16 07/18/16 12:05 14:35 03:35 Potassium Level 5.1 MEQ/L 4.6 MEQ/L Blood Gas Puncture Site RT RADIAL Blood Gas Patient Temperature 98.6 Blood Gas HCO3 37 mmol/L Blood Gas Base Excess 10.8 mmol/L Blood Gas Oxygen Saturation 92 % Arterial Blood pH 7.34 Arterial Blood Partial 70 mmHg Pressure CO2 Arterial Blood Partial 79 mmHg Pressure O2 Arterial Blood Oxygen Content 14.4 Vol % Arterial Blood 1.4 % Carboxyhemoglobin Arterial Blood Methemoglobin 1.1 % Blood Gas Hemoglobin 11.1 G/DL Oxygen Delivery Device VENTILATOR Blood Gas Ventilator Setting CPAP+5/PS+10 Blood Gas Inspired Oxygen 40 % White Blood Count 16.8 TH/MM3 Red Blood Count 3.98 MIL/MM3 Hemoglobin 10.0 GM/DL Hematocrit 32.0 % Mean Corpuscular Volume 80.5 FL Mean Corpuscular Hemoglobin 25.0 PG Mean Corpuscular Hemoglobin 31.1 % Concent Red Cell Distribution Width 17.0 % Platelet Count 183 TH/MM3 Mean Platelet Volume 10.7 FL Neutrophils (%) (Auto) 82.6 % Lymphocytes (%) (Auto) 8.4 % Monocytes (%) (Auto) 7.0 % Eosinophils (%) (Auto) 1.9 % Basophils (%) (Auto) 0.1 % Neutrophils # (Auto) 13.9 TH/MM3 Lymphocytes # (Auto) 1.4 TH/MM3 Monocytes # (Auto) 1.2 TH/MM3 Eosinophils # (Auto) 0.3 TH/MM3 Basophils # (Auto) 0.0 TH/MM3 CBC Comment AUTO DIFF Differential Total Cells 100 Counted Neutrophils % (Manual) 76 % Band Neutrophils % 1 % Lymphocytes % 8 % Monocytes % 8 % Eosinophils % 4 % Neutrophils # (Manual) 13.4 TH/MM3 Metamyelocytes 1 % Myelocytes 2 % Differential Comment FINAL DIFF MANUAL Platelet Estimate NORMAL Platelet Morphology Comment ENLARGED Red Cell Morphology Comment NORMAL Sodium Level 143 MEQ/L Chloride Level 97 MEQ/L Carbon Dioxide Level 41.4 MEQ/L Anion Gap 5 MEQ/L Blood Urea Nitrogen 57 MG/DL Creatinine 1.22 MG/DL Estimat Glomerular Filtration 42 ML/MIN Rate Random Glucose 116 MG/DL Calcium Level 8.3 MG/DL Magnesium Level 2.9 MG/DL Imaging Last Impressions Chest X-Ray 07/17/16 0000 Signed Impressions: Service Date/Time: Sunday, July 17, 2016 09:00 - CONCLUSION: Right basilar airspace disease suspected.. Alejandro Bejarano MD Objective Remarks GENERAL: Patient is 85 yo sedated and intubated. SKIN: Warm and dry. HEAD: Normocephalic. EYES: No scleral icterus. No injection or drainage. NECK: Supple, trachea midline. No JVD or lymphadenopathy. Orally intubated. CARDIOVASCULAR: Regular rate and rhythm without murmurs, gallops, or rubs. RESPIRATORY: Breath sounds equal bilaterally. No accessory muscle use. GASTROINTESTINAL: Abdomen soft, non-tender, nondistended. MUSCULOSKELETAL: No cyanosis, or edema. Neuro: Intubated. A/P Problem List: (1) COPD with acute exacerbation ICD Code: J44.1 Status: Acute (2) Diabetes mellitus type 2, uncontrolled ICD Code: E11.9 Status: Chronic (3) Chronic diastolic congestive heart failure ICD Code: I50.32 Status: Chronic Assessment and Plan 1)VDRF 2)COPD exacerbation 3)Mild IZA 4)Anemia 5)Hx HTN 6)DM 7)Hx CHF 8)Hx CVA Plan Neuro: On Diprivan infusion for sedation , daily sedation vacation. Pulm: Continue with vent support keep sat >92% Bronchodilators, decrease Solumederol 40mg daily, Diamox 250mg IV x1 today ICU vent bundle, patient did not tolerate CPAP trials yesterday. 07/17 CXR: Right basilar airspace disease CV: Monitor HR and BP keep MAP>65mmHg. On ASA, Pravastatin daily : Monitor renal function, I/O's, electrolytes replacement per protocol. Change Free H20 250ml Q12, monitor Sodium level. d/c IVF Diurese with Lasix 20mg IV1. GI: On Protonix 40mg daily On TF-Glucerna 1.5@ 45ml/hr ID: Continue with abx ( Levaquin) monitor for signs of infections ( Fever, WBC) Strep pneumonia and Legionella Ag negative. 07/12 Sputum cx: Staph Aureus- sensitive to Levaquin. 07/15 Sputum cx: Normal dimple Heme: Monitor CBC Endo: SSI( Medium scale) with accuchecks, DVT/GI prophylaxis - Heparin subQ/ Pantoprazole Lines: Right subclavian CVP placed 07/12 CCT 30 mins Neil Roque MD Jul 18, 2016 09:15
[2016-07-18 13:18] LABS: BLOOD GAS BASE EXCESS 12.3 mmol/L (-2-2); BLOOD GAS CARBOXYHEMOGLOBIN 1.4 % (0-4); BLOOD GAS HCO3 38 mmol/L (22-26); BLOOD GAS METHEMOGLOBIN 1.2 % (0-2); BLOOD GAS O2 HGB SATURATION 92 % (90-100); BLOOD GAS OXYGEN CONTENT 14.1 Vol % (12.0-20.0); BLOOD GAS PCO2 73 mmHg (38-42); BLOOD GAS PO2 84 mmHg (61-120); BLOOD GAS TOTAL HGB 10.8 G/DL (12.0-16.0); TEMP CORR TO 98.6
[2016-07-18 13:19] LABS: CRITICAL VALUE YES; DRAW SITE RT RADIAL; FIO2 40 %; NUMBER OF ARTERIAL PUNCTURES 1; OXYGEN DEVICE VENTILATOR; STAT NO; ULNAR PULSE PRESENT; VENT SETTINGS 10/+5
[2016-07-18] MEDS ORDERED: FUROSEMIDE 20 MG/2 ML VIAL IV PUSH ONE (15:00)
[2016-07-18] MEDS: PROPOFOL 1000 MG/100 ML IV SCH (22:51)
[2016-07-18] MEDS: LEVOFLOXACIN 250 MG PREMIX INJ 50 ML IV SCH (22:51)
[2016-07-19] VITALS (19 sets, daily range): BP systolic 90–113; BP diastolic 46–57; PULSE 58–72; RESP 20; TEMP 98.4–99.1; O2SAT 95–97
[2016-07-19] MEDS: INSULIN NovoLIN REGULAR SUPPLEMENTAL SCALE SQ SCH ×4 (03:21→22:00)
[2016-07-19 05:42] LABS: AUTOMATED NEUTROPHIL # 13.5 TH/MM3 (1.8-7.7); BASOPHIL % 0.1 % (0.0-2.0); EOSINOPHIL # 0.9 TH/MM3 (0-0.4); EOSINOPHIL % 5.1 % (0.0-4.0); HEMATOCRIT 31.5 % (35.0-46.0); LYMPH % 8.8 % (9.0-44.0); LYMPHOCYTE # 1.5 TH/MM3 (1.0-4.8); MEAN CELL VOLUME 80.4 FL (80.0-100.0); MEAN CORPUSCULAR HEMOGLOBIN 24.5 PG (27.0-34.0); MEAN CORPUSCULAR HGB CONC 30.4 % (32.0-36.0); MONO % 8.6 % (0.0-8.0); NEUT % 77.4 % (16.0-70.0); PLATELET COUNT 189 TH/MM3 (150-450); RED BLOOD COUNT 3.91 MIL/MM3 (4.00-5.30); RED CELL DISTRIBUTION WIDTH 17.6 % (11.6-17.2); WHITE BLOOD COUNT 17.4 TH/MM3 (4.0-11.0)
[2016-07-19 05:45] LABS: HEMO FLAGS AUTO DIFF
[2016-07-19] MEDS: methylPREDNISolone SOD SUCC 40 MG/1 ML VIAL IV PUSH SCH (05:50)
[2016-07-19 06:04] LABS: BICARBONATE 40.6 MEQ/L (21.0-32.0); MAGNESIUM 2.9 MG/DL (1.5-2.5); POTASSIUM 3.9 MEQ/L (3.5-5.1)
[2016-07-19 07:35] LABS: BANDS 6 % (0-6); EOSINOPHILS 2 % (0-4); MYELOCYTES 1 % (0-0); NEUTROPHIL # MANUAL DIFF 13.9 TH/MM3 (1.8-7.7); POLYS (SEG NEUTROPHILS) 73 % (16-70); SCAN/DIFF FINAL DIFF MANUAL; WBC DIFF SAMPLE 100
[2016-07-19 07:36] LABS: PLATELET ESTIMATE SMEAR NORMAL (NORMAL); PLATELET MORPHOLOGY NORMAL (NORMAL)
[2016-07-19] MEDS: FREE WATER G-TUBE SCH ×2 (08:23→21:00)
[2016-07-19] MEDS: CLOTRIMAZOLE 1% CREAM 15 GM TOPICAL SCH ×2 (08:23→21:00)
[2016-07-19] MEDS: ASPIRIN EC 81 MG TABEC PO SCH (08:23)
[2016-07-19] MEDS: HEPARIN SODIUM - SQ 10,000 UNITS/ML VIAL SQ SCH ×2 (08:23→22:15)
[2016-07-19] MEDS: DIPYRIDAMOLE/ASPIRIN 200 MG/25 MG CAP PO SCH ×2 (08:23→22:14)
[2016-07-19] MEDS: PRAVASTATIN SOD 40 MG TAB PO SCH (08:23)
[2016-07-19] MEDS: PANTOPRAZOLE SODIUM 40 MG VIAL IV PUSH SCH (11:03)
--- NOTE | 2016-07-19 15:49 | HHI.CCPN ---
Subjective Remarks/Hospital Course 85 y/o female admitted with worsening sob. She's had difficulty breathing for about a week, with productive cough of yellowish sputum. she reports on and off fever over the past few days.according to ER, she was found to have a O2 sat of 70's at the time of EMS arrival. She is on BiPaP at the time of my evaluation. 07/12 Patient is sedated with Diprivan and intubated. Afebrile. 07/13 No acute events overnight. Sedated with Diprivan and intubated. Afebrile. 07/14 Patient remains sedated and intubated. ABG showed acute resp acidosis on CPAP yesterday. Afebrile. 07/15 No acute events overnight. Did not tolerate CPAP trials yesterday. Sedated and intubated. 07/16 No acute events overnight. Sedated with diprivan and intubated. Afebrile. 07/17 Patient tolerated CPAP trials for 1.5 hr yesterday then became tachypneic. No events overnight. Sedated with Diprivan and intubated. Afebrile. 07/18 Patient remains sedated and intubated. Did not tolerate CPAP trials yesterday. Afebrile 07/19: Remains sedated, orally intubated on mechanical ventilation. Failed C Pap trial today within 1 minute. Objective Vital Signs Date Time Temp Pulse Resp B/P Pulse Ox O2 Delivery O2 Flow Rate FiO2 07/19/16 15:29 96 40 07/19/16 14:00 63 07/19/16 12:00 99.1 20 90/47 07/18/16 09:11 Ventilator Intake and Output 07/18/16 07/18/16 07/19/16 08:00 16:00 00:00 Intake Total 980 ml 320 ml 814 ml Output Total 500 ml 650 ml 1400 ml Balance 480 ml -330 ml -586 ml Result Diagram: 07/19/16 0500 07/19/16 0500 Imaging Last Impressions Chest X-Ray 07/17/16 0000 Signed Impressions: Service Date/Time: Sunday, July 17, 2016 09:00 - CONCLUSION: Right basilar airspace disease suspected.. Alejandro Bejarano MD Objective Remarks GENERAL: Patient is 85 yo sedated and intubated. SKIN: Warm and dry. HEAD: Normocephalic. EYES: No scleral icterus. No injection or drainage. NECK: Supple, trachea midline. No JVD or lymphadenopathy. Orally intubated. CARDIOVASCULAR: Regular rate and rhythm without murmurs, gallops, or rubs. RESPIRATORY: Breath sounds equal bilaterally. No accessory muscle use. GASTROINTESTINAL: Abdomen soft, non-tender, nondistended. MUSCULOSKELETAL: No cyanosis, or edema. Neuro: Intubated. A/P Problem List: (1) COPD with acute exacerbation ICD Code: J44.1 Status: Acute (2) Diabetes mellitus type 2, uncontrolled ICD Code: E11.9 Status: Chronic (3) Chronic diastolic congestive heart failure ICD Code: I50.32 Status: Chronic Assessment and Plan 1)Acute resp failure on mech ventilation 2)COPD exacerbation 3)Mild IZA 4)Anemia 5)Hx HTN 6)DM 7)Hx CHF 8)Hx CVA Plan Neuro: On Diprivan infusion for sedation , daily sedation vacation. Pulm: Continue with vent support keep sat >92% Bronchodilators, continue Solumedrol 40mg daily, Diamox 250mg IV x1 on 07/18 ICU vent bundle, patient did not tolerate CPAP trial. 07/17 CXR: Right basilar airspace disease CV: Monitor HR and BP keep MAP>65mmHg. On ASA, Pravastatin daily : Monitor renal function, I/O's, electrolytes replacement per protocol. Free H20 250ml Q12, monitor Sodium level. Off IVF Diurese with Lasix 20mg IV1. GI: On Protonix 40mg daily On TF-Glucerna 1.5@ 45ml/hr ID: Continue with abx ( Levaquin) monitor for signs of infections ( Fever, WBC) Strep pneumonia and Legionella Ag negative. 07/12 Sputum cx: Staph Aureus- sensitive to Levaquin. 07/15 Sputum cx: Normal dimple Heme: Monitor CBC Endo: SSI( Medium scale) with accuchecks, DVT/GI prophylaxis - Heparin subQ/ Pantoprazole Lines: Right subclavian CVP placed 07/12 CCT 30 mins Itz Winston MD Jul 19, 2016 15:49
[2016-07-19] MEDS: PROPOFOL 1000 MG/100 ML IV SCH (18:26)
[2016-07-19] MEDS: LEVOFLOXACIN 250 MG PREMIX INJ 50 ML IV SCH (22:15)
[2016-07-20] VITALS (20 sets, daily range): BP systolic 93–121; BP diastolic 44–77; PULSE 59–86; RESP 20–22; TEMP 98.4–99.9; O2SAT 95–99
[2016-07-20] MEDS: INSULIN NovoLIN REGULAR SUPPLEMENTAL SCALE SQ SCH ×4 (04:00→22:00)
[2016-07-20 05:06] LABS: AUTOMATED NEUTROPHIL # 10.9 TH/MM3 (1.8-7.7); BASOPHIL % 0.1 % (0.0-2.0); EOSINOPHIL # 0.8 TH/MM3 (0-0.4); EOSINOPHIL % 5.8 % (0.0-4.0); HEMATOCRIT 29.5 % (35.0-46.0); LYMPH % 10.2 % (9.0-44.0); LYMPHOCYTE # 1.5 TH/MM3 (1.0-4.8); MEAN CELL VOLUME 80.3 FL (80.0-100.0); MEAN CORPUSCULAR HGB CONC 31.2 % (32.0-36.0); MONO % 9.2 % (0.0-8.0); NEUT % 74.7 % (16.0-70.0); PLATELET COUNT 182 TH/MM3 (150-450); RED BLOOD COUNT 3.67 MIL/MM3 (4.00-5.30); RED CELL DISTRIBUTION WIDTH 17.5 % (11.6-17.2); WHITE BLOOD COUNT 14.5 TH/MM3 (4.0-11.0)
[2016-07-20 05:15] LABS: HEMO FLAGS AUTO DIFF
[2016-07-20] MEDS: methylPREDNISolone SOD SUCC 40 MG/1 ML VIAL IV PUSH SCH (05:24)
[2016-07-20 05:25] LABS: ALT (GPT) 36 U/L (10-53); ANION GAP 7 MEQ/L (5-15); AST (GOT) 28 U/L (15-37); BICARBONATE 37.4 MEQ/L (21.0-32.0); BLOOD UREA NITROGEN 70 MG/DL (7-18); CHLORIDE 101 MEQ/L (98-107); GLOMERULAR FILTRATION RATE 38 ML/MIN (>89); POTASSIUM 3.9 MEQ/L (3.5-5.1); SODIUM (NA) 145 MEQ/L (136-145)
[2016-07-20 05:26] LABS: ALKALINE PHOSPHATASE 93 U/L (45-117); TOTAL BILIRUBIN ADULT 0.4 MG/DL (0.2-1.0)
[2016-07-20 07:22] LABS: BANDS 12 % (0-6); EOSINOPHILS 4 % (0-4); METAMYELOCYTES 2 % (0-1); MYELOCYTES 1 % (0-0); NEUTROPHIL # MANUAL DIFF 11.6 TH/MM3 (1.8-7.7); PLATELET ESTIMATE SMEAR NORMAL (NORMAL); PLATELET MORPHOLOGY ENLARGED (NORMAL); POLYS (SEG NEUTROPHILS) 65 % (16-70); SCAN/DIFF FINAL DIFF MANUAL; WBC DIFF SAMPLE 100
--- NOTE | 2016-07-20 08:39 | HHI.CCPN ---
Subjective Remarks/Hospital Course 85 y/o female admitted with worsening sob. She's had difficulty breathing for about a week, with productive cough of yellowish sputum. she reports on and off fever over the past few days.according to ER, she was found to have a O2 sat of 70's at the time of EMS arrival. She is on BiPaP at the time of my evaluation. 07/12 Patient is sedated with Diprivan and intubated. Afebrile. 07/13 No acute events overnight. Sedated with Diprivan and intubated. Afebrile. 07/14 Patient remains sedated and intubated. ABG showed acute resp acidosis on CPAP yesterday. Afebrile. 07/15 No acute events overnight. Did not tolerate CPAP trials yesterday. Sedated and intubated. 07/16 No acute events overnight. Sedated with diprivan and intubated. Afebrile. 07/17 Patient tolerated CPAP trials for 1.5 hr yesterday then became tachypneic. No events overnight. Sedated with Diprivan and intubated. Afebrile. 07/18 Patient remains sedated and intubated. Did not tolerate CPAP trials yesterday. Afebrile 07/19: Remains sedated, orally intubated on mechanical ventilation. Failed C Pap trial today within 1 minute. 07/20: Remains sedated, orally intubated on mechanical ventilation. Objective Vital Signs Date Time Temp Pulse Resp B/P Pulse Ox O2 Delivery O2 Flow Rate FiO2 07/20/16 08:18 40 07/20/16 08:05 97 07/20/16 06:00 63 07/20/16 04:00 98.4 20 121/77 07/18/16 09:11 Ventilator Intake and Output 07/19/16 07/19/16 07/20/16 08:00 16:00 00:00 Intake Total 655 ml 885 ml 780 ml Output Total 400 ml 450 ml 300 ml Balance 255 ml 435 ml 480 ml Result Diagram: 07/20/16 0425 07/20/16 0425 Imaging Last Impressions Chest X-Ray 07/17/16 0000 Signed Impressions: Service Date/Time: Sunday, July 17, 2016 09:00 - CONCLUSION: Right basilar airspace disease suspected.. Alejandro Bejarano MD Objective Remarks GENERAL: Patient is 85 yo sedated and intubated. SKIN: Warm and dry. HEAD: Normocephalic. EYES: No scleral icterus. No injection or drainage. NECK: Supple, trachea midline. No JVD or lymphadenopathy. Orally intubated. CARDIOVASCULAR: Regular rate and rhythm without murmurs, gallops, or rubs. RESPIRATORY: Breath sounds equal bilaterally. No accessory muscle use. GASTROINTESTINAL: Abdomen soft, non-tender, nondistended. MUSCULOSKELETAL: No cyanosis, or edema. Neuro: Intubated. A/P Problem List: (1) COPD with acute exacerbation ICD Code: J44.1 Status: Acute (2) Diabetes mellitus type 2, uncontrolled ICD Code: E11.9 Status: Chronic (3) Chronic diastolic congestive heart failure ICD Code: I50.32 Status: Chronic Assessment and Plan 1)Acute resp failure on mech ventilation 2)COPD exacerbation 3)Mild IZA 4)Anemia 5)Hx HTN 6)DM 7)Hx CHF 8)Hx CVA Plan Neuro: On Diprivan infusion for sedation , daily sedation vacation. Pulm: Continue with vent support keep sat >92% Bronchodilators, continue Solumedrol 40mg daily, Diamox 250mg IV x1 on 07/18 ICU vent bundle, patient did not tolerate CPAP trial on 07/20. 07/17 CXR: Right basilar airspace disease CV: Monitor HR and BP keep MAP>65mmHg. On ASA, Pravastatin daily : Monitor renal function, I/O's, electrolytes replacement per protocol. Free H20 250ml Q12, monitor Sodium level. Off IVF Diurese with Lasix 20mg IV1. GI: On Protonix 40mg daily On TF-Glucerna 1.5@ 45ml/hr ID: Continue with abx ( Levaquin) monitor for signs of infections ( Fever, WBC) Strep pneumonia and Legionella Ag negative. 07/12 Sputum cx: Staph Aureus- sensitive to Levaquin. 07/15 Sputum cx: Normal dimple Heme: Monitor CBC Endo: SSI( Medium scale) with accuchecks, DVT/GI prophylaxis - Heparin subQ/ Pantoprazole We'll consult palliative care to assist with deciding goals of therapy. Lines: Right subclavian CVP placed 07/12 CCT 30 mins Itz Winston MD Jul 20, 2016 08:39
[2016-07-20] MEDS: FREE WATER G-TUBE SCH ×2 (09:00→20:07)
[2016-07-20] MEDS: ASPIRIN EC 81 MG TABEC PO SCH (09:23)
[2016-07-20] MEDS: PRAVASTATIN SOD 40 MG TAB PO SCH (09:23)
[2016-07-20] MEDS: HEPARIN SODIUM - SQ 10,000 UNITS/ML VIAL SQ SCH ×2 (09:23→20:06)
[2016-07-20] MEDS: DIPYRIDAMOLE/ASPIRIN 200 MG/25 MG CAP PO SCH ×2 (09:24→20:06)
[2016-07-20] MEDS: PANTOPRAZOLE SODIUM 40 MG VIAL IV PUSH SCH (09:24)
[2016-07-20] MEDS: CLOTRIMAZOLE 1% CREAM 15 GM TOPICAL SCH ×2 (09:25→20:07)
--- NOTE | 2016-07-20 11:28 | PD.CONS ---
Consult Service Palliative Care Consult Requested By Dr. Winston Primary Care Physician Jeff Olivas MD Reason for Consultation a. To assist with evaluation and management of symptoms including: dyspnea, anxiety b. To assist medical decision maker(s) with: better understanding of current medical conditions; weighing benefits/burdens of medical treatment options; making medical treatment decisions. (Roxanne,Arelis BUCHANAN) HPI History of Present Illness This 85-year-old female presents to the ED on 07/09/16 with complaints of shortness of breath. She had been feeling short of breath for the past 2 days prior getting worse today presentation. EMS reported O2 sats on room air in the 70s at their arrival. She improved to 80s90s on CPAP. EMS reported some wheezing and crackles audible. 3 albuterol treatments by EMS. She denied chest pain. Reported swelling in her legs. Denied nausea or vomiting. Denies abdominal pain. She has known history of COPD, CHF. She reported issues with breathing in the past, and in prior admission required intubation. She reported she did not want to be intubated if she had trouble breathing. Daughter indicated she had a fever earlier that week but had resolved. Also reported sick contact with a granddaughter who had a cold. * ED course: Initiated on BiPAP. Lungs with diffuse wheezing. CXR= cardiomegaly no infiltrates, coarse opacity right medial lung base consistent with scarring. Labs unremarkable. Receives ongoing duonebs, Solu-Medrol. Initiated on Levaquin due to prior fever reported. She has also noted to have a rash on her chest and abdomen and complained of itching in the areas of rash. Noted to have acute kidney injury, mild hyperkalemia. Started on IV fluids. Admitted for further evaluation and management. * Remaining on on and off BiPAP/Venturi mask. + Having cough with yellow sputum. * 07/12 worsening respiratory status acute respiratory distress intubated, central line placed. Sedated with Diprivan. * 07/15 not tolerating CPAP trials remains sedated and intubated. BUN 54, creatinine 1.3, GFR 46. Potassium 5.1. Receiving tube feeding * 1/3 remains intubated, sedated. Not tolerating CPAP trials. Afebrile. CXR= right basilar airspace disease. Sputum culture 07/15 normal dimple. Sputum culture 07/12 staph aureussensitive. Negative for strep pneumonia, Legionella. * alliative care consulted to assist with clarification of goals of treatment. WBC 14. H&H stable. Renal function still elevated, slowly trending up BUN 70/creatinine 1.33, GFR 38. Urine output adequate. Pt seen in room no visitors present. She is awake on CPAP. She nods to some questions, follows simple commands. Attempts to mouth words , difficult to understand. Nods no to pain. Nods yes to shortness of breath. RR 22-23 on CPAP. Following exam call to daughter Hawa. Spoke w her at length. Review of available history in EMRof note patient was admitted from 09/19/14 through 10/01/14 COPD, respiratory failure. At that time patient was admitted for worsening shortness of breath, she had been intubated in the field by EMS, remained intubated until 09/23, when she was extubated to a nonrebreather. She was on and off of BiPAP as well as facemask O2. She was followed by Dr. estrella pulmonology. She required discharge to rehabilitation due to weakness, needing increased assistance. She was discharged to [facility]. Prior to that reported that she lived at home with her daughter. Function/Cognitive Trajectory Patient previously lived at home with her daughter, on home O2. Did go to rehabilitation in 2014 following hospitalization. Does not drive. (Arelis Oliveira) Review of Systems ROS Limitations: Clinical Condition, Intubated (limited communication some nodding yes/no) Constitutional: DENIES: Pain Respiratory: COMPLAINS OF: Shortness of breath (Arelis Oliveira) Past Family Social History Coded Allergies: Penicillin (Verified Allergy, Severe, Hives, 09/19/14) Vitamin B12 (Verified Allergy, Severe, ALLERGIC TO SHOT ONLY - HIVES, ) *MDRO Multi-Drug Resistant Organism (Verified Adverse Reaction, Unknown, ) ESBL E.Coli (urine)-07/23/16 Past Medical History hypertension diabetes mellitus COPD dyslipidemia history of CVA Past Surgical History cataract surgery bilateral hysterectomy Exploratory laparotomy Reported Medications Pravastatin 40 Mg Tab 40 Mg PO DAILY Prednisone 5 Mg Tab 5 Mg PO DAILY Biotin 5,000 Mcg Cap 10,000 Mcg PO DAILY Vitamin C (Ascorbic Acid) 500 Mg Chew 500 Mg CHEW DAILY Aspirin 81 (Aspirin) 81 Mg Tabdr 81 Mg PO DAILY Aggrenox (Dipyridamole/Aspirin) 200-25 Mg Cap 1 Cap PO BID Duoneb (Ipratropium-Albuterol Neb) 0.5-2.5 Mg/3 Ml Neb 1 Nebule INH Q8HR NEB Levemir Inj (Insulin Detemir) 1,000 unit/ 10 ML Vial 9 Units SQ HS Do not mix with any other Insulin. Potassium Chloride ER (Potassium Chloride) 10 Meq Cap 10 Meq PO BID Furosemide 20 Mg Tab 20 Mg PO BID Omeprazole 20 Mg Tab 20 Mg PO DAILY Fish Oil + D3 (Fish Oil-Cholecalciferol) 1,200-1,000 Mg-Unit Cap 1 Cap PO BID Multivitamin Women (Multiple Vitamins W/ Minerals) 1 Tab Tab 1 Tab PO DAILY Docusate Sodium 100 Mg Cap 100 Mg PO DAILY Mucinex DM (Dextromethorphan-Guaifenesin) 30-600 Mg Tab 1 Tab PO BID PRN . Current Medications Medications (Trade) Dose Ordered Sig/Aranza Route Start Time Stop Time Status Last Admin IV Flush 2 ml 2 ml UNSCH PRN IVF 07/09/16 23:15 07/17/16 09:02 (Levaquin 250 Mg Premix Inj) 50 ml @ 50 mls/hr Q24H IV 07/10/16 23:00 07/19/16 22:15 (D50w (Vial) Inj) 25 ml UNSCH PRN IV PUSH 07/10/16 01:30 (Glucagon Inj) 1 mg UNSCH PRN OTHER 07/10/16 01:30 (Ecotrin Ec) 81 mg DAILY PO 07/10/16 09:00 07/20/16 09:23 (Aggrenox 200-25 Mg) 1 cap BID PO 07/10/16 09:00 07/20/16 09:24 (Pravachol) 40 mg DAILY PO 07/10/16 09:00 07/20/16 09:23 (Lotrimin 1% Cream) 1 applic Q12HR TOPICAL 07/10/16 09:00 07/20/16 09:25 (Benadryl) 25 mg Q8HR PRN PO 07/10/16 01:45 (Tylenol) 650 mg Q4H PRN PO 07/10/16 01:45 07/19/16 08:24 Miscellaneous Information Patient in critical care unit? Ass... [id number] XX 07/10/16 04:00 07/10/16 03:56 (Zofran Inj) 4 mg Q6H PRN IVP 07/10/16 14:15 (Compazine Supp) 25 mg Q12H PRN TX 07/10/16 14:15 (Dulcolax Supp) 10 mg DAILY PRN TX 07/10/16 14:15 (Milk Of Magnesia Liq) 30 ml Q12H PRN PO 07/10/16 14:15 (Senokot) 17.2 mg Q12H PRN PO 07/10/16 14:15 (Restoril) 15 mg HS PRN PO 07/10/16 14:15 Heparin Sodium (Porcine) 5000 units 5,000 units Q12HR SQ 07/12/16 09:00 07/20/16 09:23 Propofol 100 ml @ 0 mls/hr TITRATE IV 07/12/16 05:15 07/19/16 18:26 Potassium Chloride 100 ml @ 50 mls/hr Q2H PRN IV 07/13/16 10:45 (KCl 20 Meq Premix Inj) 100 ml @ 50 mls/hr Q2H PRN IV 07/13/16 10:45 Potassium Chloride 40 meq 40 meq UNSCH PRN PO/TUBE 07/13/16 10:45 07/13/16 12:48 Potassium Chloride 100 ml @ 25 mls/hr UNSCH PRN IV 07/13/16 10:45 Potassium Chloride 100 ml @ 50 mls/hr Q2H PRN IV 07/13/16 10:45 (Magnesium Sulfate Inj/NS Inj) 100 ml @ 50 mls/hr UNSCH PRN IV 07/13/16 10:45 Magnesium Oxide 800 mg 800 mg UNSCH PRN PO 07/13/16 10:45 (Magnesium Sulfate Inj/NS Inj) 100 ml @ 50 mls/hr UNSCH PRN IV 07/13/16 10:45 Potassium Phosphate 2000 mg 2,000 mg Q4H PRN PO 07/13/16 10:45 (Sodium Phosphate Inj/NS 250 ml Inj) 250 ml @ 42 mls/hr UNSCH PRN IV 07/13/16 10:45 (KCl 40 Meq/30 ml Liq) 40 meq UNSCH PRN PO/TUBE 07/13/16 10:45 Potassium Phosphate 2000 mg 2,000 mg UNSCH PRN PO/TUBE 07/13/16 10:45 07/13/16 12:23 (Potassium Phosphate Inj/NS 250 ml Inj) 260 ml @ 42 mls/hr UNSCH PRN IV 07/13/16 10:45 (NovoLIN R SUPPLEMENTAL SCALE) 1 Q6H SQ 07/14/16 10:00 07/20/16 09:24 (Protonix Inj) 40 mg Q24H IV PUSH 07/16/16 10:00 07/20/16 09:24 (Free Water) 250 ml Q12HR G-TUBE 07/18/16 21:00 07/20/16 09:00 (SoluMEDROL INJ) 40 mg DAILY@0600 IV PUSH 07/19/16 06:00 07/20/16 05:24 Family History Per EMR father with cirrhosis, mother of pneumonia Substance Use Tobacco: Quit smoking 20+ years ago Alcohol: Does not drink Prescription med abuse: None Illicits: None . Psychosocial History originally from [place] lived in [place] many years. Supported by 3 adult children- 1 in [place], 1 in [place], 1 here locally in [place]. Has lived with her daughter for several years. . Spiritual/Cultural Factors Hoahaoism (Arelis Oliveira) Living Will: Copy in medical record (document indicates in the presence of a terminal endstage or persistent vegetative condition with no probability of recovery directs life prolonging procedures be withheld and withdrawn. In addition with the same conditions it requests no cardiac resuscitation no mechanical respiration, no blood products no form of surgery or invasive tests no dialysis no antibiotics no artificial nutrition/hydration. It requests that if patient is unable to give directions that family and physicians on her document.) Date completed: Living will dated November 2004 Ethical and Legal Issues [facility] unable to participate in decision making, daughter reports she is POA--has 2 other siblings out of state. Per statutes decision making would fall to all 3 adult children in absence of HCS documents. . (Arelis Oliveira) Physical Exam Vital Signs Date Time Temp Pulse Resp B/P Pulse Ox O2 Delivery O2 Flow Rate FiO2 07/20/16 10:00 86 07/20/16 08:18 40 07/20/16 08:05 97 40 07/20/16 08:00 67 07/20/16 08:00 40 07/20/16 08:00 98.5 64 22 102/49 96 07/20/16 06:00 63 07/20/16 04:00 40 07/20/16 04:00 98.4 68 20 121/77 95 07/20/16 04:00 68 07/20/16 03:30 97 40 07/20/16 02:00 59 07/20/16 01:09 97 40 07/20/16 00:00 98.6 64 20 105/51 95 07/20/16 00:00 40 07/20/16 00:00 64 07/19/16 22:08 96 40 07/19/16 22:00 59 07/19/16 20:00 58 07/19/16 20:00 98.8 58 20 95/46 97 07/19/16 20:00 40 07/19/16 19:42 96 40 07/19/16 18:00 60 07/19/16 16:00 40 07/19/16 16:00 98.4 66 20 113/57 96 07/19/16 16:00 66 07/19/16 15:29 96 40 07/19/16 14:00 63 07/19/16 12:16 97 40 07/19/16 12:00 62 07/19/16 12:00 99.1 62 20 90/47 97 07/19/16 12:00 40 07/19/16 07/20/16 18:59 06:59 Intake Total 885 ml 1201 ml Output Total 450 ml 650 ml Balance 435 ml 551 ml IV Total 149 ml 167 ml Tube Feeding 436 ml 754 ml Other 300 ml 280 ml Output Urine Total 450 ml 650 ml # Bowel Movements 0 1 Exam CONSTITUTIONAL/GENERAL: This is a frail elderly appearing female [facility] TUBES/LINES/DRAINS: PIV RUE, central line R SC, seay cath, ETT, OGT, SCDS, heel boots, air bed, soft restraints bilateral upper extremities. SKIN: No jaundice, rashes, or lesions. few areas ecchymoses BUE. Skin temperature appropriate. Not diaphoretic. HEAD: Atraumatic. Normocephalic. EYES: Pupils equal and round and reactive. Extraocular motions intact. No scleral icterus. No injection or drainage. Fundi not examined. ENT: Nose without bleeding or purulent drainage. Unable to Visualize oropharynx due to ET tube, OG tube. Copious oral secretions, clear, draining from oral cavity. NECK: Trachea midline. Supple, nontender. No palpable thyroid enlargement or nodularity. CARDIOVASCULAR: Regular rate and rhythm, no murmur. No JVD. Peripheral pulses symmetric. Trace generalized edema to upper extremities. RESPIRATORY/CHEST: Symmetric, mildly labored respirations, via ET tube, to mechanical vent. Significantly diminished air movement to left, slight expiratory wheeze to left, little better area movement to right, still diminished, clear. GASTROINTESTINAL: Abdomen soft, no apparent tenderness, nondistended. No hepato- splenomegaly, or palpable masses. Bowel sounds present. Tube feedings infusing via OG tube GENITOURINARY: Without palpable bladder distension. Seay catheter in place. MUSCULOSKELETAL: Extremities without clubbing, cyanosis. + edema bilateral upper extremities. No joint tenderness or effusion noted. No mottling or clubbing. LYMPHATICS: No palpable cervical or supraclavicular adenopathy. NEUROLOGICAL: Awake . Nods to some questions, unable to assess orientation, nonverbal due to mechanical vent. Attempts to mouth words though I'm unable to understand. Follows simple commands, moves all 4 extremities. PSYCHIATRIC: No obvious anxiety/depression-mildly tachypneic on ventilator (Arelis Oliveira) Diagnostic Tests Laboratory Laboratory Tests Test 07/17/16 07/17/16 07/18/16 07/18/16 12:05 14:35 03:35 13:00 Potassium Level 5.1 MEQ/L 4.6 MEQ/L (3.5-5.1) (3.5-5.1) Blood Gas Puncture Site RT RADIAL RT RADIAL Blood Gas Patient Temperature 98.6 98.6 Blood Gas HCO3 37 mmol/L 38 mmol/L (22-26) (22-26) Blood Gas Base Excess 10.8 mmol/L 12.3 mmol/L (-2-2) (-2-2) Blood Gas Oxygen Saturation 92 % (90-100) 92 % (90-100) Arterial Blood pH 7.34 7.34 (7.380-7.420) (7.380-7.420) Arterial Blood Partial 70 mmHg (38-42) 73 mmHg (38-42) Pressure CO2 Arterial Blood Partial 79 mmHg 84 mmHg Pressure O2 (61-120) (61-120) Arterial Blood Oxygen Content 14.4 Vol % 14.1 Vol % (12.0-20.0) (12.0-20.0) Arterial Blood 1.4 % (0-4) 1.4 % (0-4) Carboxyhemoglobin Arterial Blood Methemoglobin 1.1 % (0-2) 1.2 % (0-2) Blood Gas Hemoglobin 11.1 G/DL 10.8 G/DL (12.0-16.0) (12.0-16.0) Oxygen Delivery Device VENTILATOR VENTILATOR Blood Gas Ventilator Setting CPAP+5/PS+10 10/+5 Blood Gas Inspired Oxygen 40 % 40 % White Blood Count 16.8 TH/MM3 (4.0-11.0) Red Blood Count 3.98 MIL/MM3 (4.00-5.30) Hemoglobin 10.0 GM/DL (11.6-15.3) Hematocrit 32.0 % (35.0-46.0) Mean Corpuscular Volume 80.5 FL (80.0-100.0) Mean Corpuscular Hemoglobin 25.0 PG (27.0-34.0) Mean Corpuscular Hemoglobin 31.1 % Concent (32.0-36.0) Red Cell Distribution Width 17.0 % (11.6-17.2) Platelet Count 183 TH/MM3 (150-450) Mean Platelet Volume 10.7 FL (7.0-11.0) Neutrophils (%) (Auto) 82.6 % (16.0-70.0) Lymphocytes (%) (Auto) 8.4 % (9.0-44.0) Monocytes (%) (Auto) 7.0 % (0.0-8.0) Eosinophils (%) (Auto) 1.9 % (0.0-4.0) Basophils (%) (Auto) 0.1 % (0.0-2.0) Neutrophils # (Auto) 13.9 TH/MM3 (1.8-7.7) Lymphocytes # (Auto) 1.4 TH/MM3 (1.0-4.8) Monocytes # (Auto) 1.2 TH/MM3 (0-0.9) Eosinophils # (Auto) 0.3 TH/MM3 (0-0.4) Basophils # (Auto) 0.0 TH/MM3 (0-0.2) CBC Comment AUTO DIFF Differential Total Cells 100 Counted Neutrophils % (Manual) 76 % (16-70) Band Neutrophils % 1 % (0-6) Lymphocytes % 8 % (9-44) Monocytes % 8 % (0-8) Eosinophils % 4 % (0-4) Neutrophils # (Manual) 13.4 TH/MM3 (1.8-7.7) Metamyelocytes 1 % (0-1) Myelocytes 2 % (0-0) Differential Comment FINAL DIFF MANUAL Platelet Estimate NORMAL (NORMAL) Platelet Morphology Comment ENLARGED (NORMAL) Red Cell Morphology Comment NORMAL (NORMAL) Sodium Level 143 MEQ/L (136-145) Chloride Level 97 MEQ/L (98-107) Carbon Dioxide Level 41.4 MEQ/L (21.0-32.0) Anion Gap 5 MEQ/L (5-15) Blood Urea Nitrogen 57 MG/DL (7-18) Creatinine 1.22 MG/DL (0.50-1.00) Estimat Glomerular Filtration 42 ML/MIN (>89) Rate Random Glucose 116 MG/DL (74-106) Calcium Level 8.3 MG/DL (8.5-10.1) Magnesium Level 2.9 MG/DL (1.5-2.5) Test 07/19/16 07/20/16 05:00 04:25 White Blood Count 17.4 TH/MM3 14.5 TH/MM3 (4.0-11.0) (4.0-11.0) Red Blood Count 3.91 MIL/MM3 3.67 MIL/MM3 (4.00-5.30) (4.00-5.30) Hemoglobin 9.6 GM/DL 9.2 GM/DL (11.6-15.3) (11.6-15.3) Hematocrit 31.5 % 29.5 % (35.0-46.0) (35.0-46.0) Mean Corpuscular Volume 80.4 FL 80.3 FL (80.0-100.0) (80.0-100.0) Mean Corpuscular Hemoglobin 24.5 PG 25.0 PG (27.0-34.0) (27.0-34.0) Mean Corpuscular Hemoglobin 30.4 % 31.2 % Concent (32.0-36.0) (32.0-36.0) Red Cell Distribution Width 17.6 % 17.5 % (11.6-17.2) (11.6-17.2) Platelet Count 189 TH/MM3 182 TH/MM3 (150-450) (150-450) Mean Platelet Volume 10.7 FL 10.6 FL (7.0-11.0) (7.0-11.0) Neutrophils (%) (Auto) 77.4 % 74.7 % (16.0-70.0) (16.0-70.0) Lymphocytes (%) (Auto) 8.8 % 10.2 % (9.0-44.0) (9.0-44.0) Monocytes (%) (Auto) 8.6 % (0.0-8.0) 9.2 % (0.0-8.0) Eosinophils (%) (Auto) 5.1 % (0.0-4.0) 5.8 % (0.0-4.0) Basophils (%) (Auto) 0.1 % (0.0-2.0) 0.1 % (0.0-2.0) Neutrophils # (Auto) 13.5 TH/MM3 10.9 TH/MM3 (1.8-7.7) (1.8-7.7) Lymphocytes # (Auto) 1.5 TH/MM3 1.5 TH/MM3 (1.0-4.8) (1.0-4.8) Monocytes # (Auto) 1.5 TH/MM3 1.3 TH/MM3 (0-0.9) (0-0.9) Eosinophils # (Auto) 0.9 TH/MM3 0.8 TH/MM3 (0-0.4) (0-0.4) Basophils # (Auto) 0.0 TH/MM3 0.0 TH/MM3 (0-0.2) (0-0.2) CBC Comment AUTO DIFF AUTO DIFF Differential Total Cells 100 100 Counted Neutrophils % (Manual) 73 % (16-70) 65 % (16-70) Band Neutrophils % 6 % (0-6) 12 % (0-6) Lymphocytes % 8 % (9-44) 5 % (9-44) Monocytes % 10 % (0-8) 11 % (0-8) Eosinophils % 2 % (0-4) 4 % (0-4) Neutrophils # (Manual) 13.9 TH/MM3 11.6 TH/MM3 (1.8-7.7) (1.8-7.7) Myelocytes 1 % (0-0) 1 % (0-0) Differential Comment FINAL DIFF FINAL DIFF MANUAL MANUAL Platelet Estimate NORMAL NORMAL (NORMAL) (NORMAL) Platelet Morphology Comment NORMAL ENLARGED (NORMAL) (NORMAL) Sodium Level 145 MEQ/L 145 MEQ/L (136-145) (136-145) Potassium Level 3.9 MEQ/L 3.9 MEQ/L (3.5-5.1) (3.5-5.1) Chloride Level 99 MEQ/L 101 MEQ/L (98-107) (98-107) Carbon Dioxide Level 40.6 MEQ/L 37.4 MEQ/L (21.0-32.0) (21.0-32.0) Anion Gap 5 MEQ/L (5-15) 7 MEQ/L (5-15) Blood Urea Nitrogen 62 MG/DL (7-18) 70 MG/DL (7-18) Creatinine 1.29 MG/DL 1.33 MG/DL (0.50-1.00) (0.50-1.00) Estimat Glomerular Filtration 39 ML/MIN (>89) 38 ML/MIN (>89) Rate Random Glucose 141 MG/DL 142 MG/DL (74-106) (74-106) Calcium Level 8.4 MG/DL 8.2 MG/DL (8.5-10.1) (8.5-10.1) Magnesium Level 2.9 MG/DL (1.5-2.5) Metamyelocytes 2 % (0-1) Basophilic Stippling FAINT (NORMAL) Total Bilirubin 0.4 MG/DL (0.2-1.0) Aspartate Amino Transf 28 U/L (15-37) (AST/SGOT) Alanine Aminotransferase 36 U/L (10-53) (ALT/SGPT) Alkaline Phosphatase 93 U/L (45-117) Total Protein 5.8 GM/DL (6.4-8.2) Albumin 2.4 GM/DL (3.4-5.0) (Arelis Oliveira) Result Diagram: 1/5/17 0425 1/5/17 0425 Microbiology Microbiology Date/Time Procedure Status Source Growth 07/15/16 17:30 Gram Stain - Final Complete Sputum Endotracheal 07/15/16 17:30 Sputum Culture - Final Complete Sputum Endotracheal HEAVY GROWTH NORMAL RESPIRATORY DIMPLE [id number] aureussensitive Imaging Last Impressions Chest X-Ray 07/17/16 0000 Signed Impressions: Service Date/Time: Sunday, July 17, 2016 09:00 - CONCLUSION: Right basilar airspace disease suspected.. Alejandro Bejarano MD Procedures 07/12intubated 07/12Right subclavian CVP (Arelis Oliveira) Patient/Family Conference Present at Family Conference: daughter via phone Family Conference Time (mins): 20 (minutes) Family Conference Location: Telephone Issues Discussed: Call to daughter on phone, discussion included: * Palliative care role, purpose, approach * Additional medical, psychosocial, and spiritual history * Patients general health, functional status, leading up to the current hospitalization * Patient/family understanding of the current medical problems * Patient/family understanding of prognosis; review of possible trajectory and possibility the patient may require tracheostomy and PEG tube is unable to wean off the ventilator--likely timeline would be looking at if patient not able to extubate by early next week will probably be considering tracheostomy * Patients goals of care as best understood from advance directives and/or conversations and/or values * Current medical treatment options and benefits/burdens of those options * CODE STATUSno changes elected at this point * Review of living will, advised daughter and family to read over document as it is very specific regarding interventions in the presence of end-stage or terminal condition; if patient condition does not improve they may wish to continue to review living will to guide treatment decisions * Legal decision makersexplore that per statutes 3 adult children would be though daughter indicates that she is designated she saw the hospital already have copies of that paperwork, advised that we do not, they will work on trying to get a copy to us. She is in communication regularly with the other 2 children who live out of state. * Likely scenarios comparing ongoing aggressive care with a transition to comfort measures only * Questions answered to the best of my ability * Palliative care contact information provided Daughter seems to have a reasonable understanding, indicates that she has not spoken with medical provider since day of intubation though she has remained in regular communication with nurses. She has not been able to come in and visit in person because she is very ill herself and has been advised to not come into the hospital setting. (She sounds ill, her voice is extremely hoarse and she coughs frequently) all questions answered, she is appreciative of update, advise a palliative will continue to update her during clinical course. She will be in communication with patient other children in the coming days regarding CODE STATUS, goals, patient overall condition. (Arelis Oliveira) Assessment and Plan Disease Oriented Problem List: (1) COPD with acute exacerbation (2) Chronic diastolic congestive heart failure (3) Acute and chronic respiratory failure with hypercapnia (4) Diabetes mellitus type 2, uncontrolled (5) Anemia (6) IZA (acute kidney injury) Symptom Scale: (1) Anxiety 0-10 Scale: Unable to quantify Comment: Risk for related to intubation, underlying COPD (2) Dyspnea 0-10 Scale: Unable to quantify Comment: COPD, currently on mechanical vent Pertinent Non-Medical Issues Psychosocial:originally from [place] lived in [place] many years. Supported by 3 adult children- 1 in [place], 1 in [place], 1 here locally in [place]. Has lived with her daughter for several years. Spiritual: Hoahaoism Legal:[facility] unable to participate in decision making, daughter reports she is POA--has 2 other siblings out of state. Per statutes decision making would fall to all 3 adult children in absence of HCS documents. Ethical issues impacting care: Important Contacts Hawa Tsai (Daughter/POA) [phone] grandson Raymond Palomares [phone] . Prognosis This patient was admitted for COPD exacerbation. She has a long history of COPD on oxygen for at least the past several years. She was admitted on 07/09, intubated 07/04 and has remained on mechanical vent since, today is vent day 8. She is currently not tolerating CPAP for long periods, possible may require tracheostomy/PEG tube for ongoing aggressive interventions. Remains high risk for further combination/setbacks. Code Status: Full Code Plan * Legal decision maker:pt currently on [facility] vent unable to participate in decision making, daughter reports she is POA--has 2 other siblings out of state. Per statutes decision making would fall to all 3 adult children in absence of HCS documents. * Goals: Aggressive for now, full code by default family to talk more about in the coming days. * CODE STATUS: FULL CODE by default, family to talk more about * SYMPTOMS: --anxiety- risk for r/t intubated, hx COPD, dyspnea. Mild tachypnea today during my exam, sedation held in order to conduct CPAP trials, had been on diprivan for sedation prior, reported comfortable. May benefit from low dose prn benzodiazepine if remain uncomfortable even on diprivan. --dyspnea- admit for SOB, long hx O2 dependent COPD. intubated 07/12, currently not tolerating CPAP trial for extubation, may req. trach/PEG for ongoing tx if aggressive tx desired. +diprivan for sedation [facility] * Palliative care will continue to follow during hospital course as condition evolves, to assist patient/decision-maker with understanding of medical conditions, weighing benefits/burdens of treatment options, for clarification of goals of treatment. Additionally will assist with any symptoms of palliative concern (Arelis Oliveira) Time Spent Total Floor Time (mins): 60 >50% Counseling/Coord of Care: Yes (d/w RN, attending) (Arelis Oliveira) Thank you for the opportunity to participate in the care of Ms. Salazar. (Arelis Oliveira) Attestation To help prompt me to consider important information that might be impacting today's encounter and assessment, information from prior notes written by myself or my colleagues may have been "brought forward" into today's note. My signature on this note, however, is an attestation that I personally performed the exam, history, and/or decision-making noted today, and, unless otherwise indicated, the interactions with patient, family, and staff as well as the review of records all occurred today. I also attest that the listed assessment and stated plan reflect my best clinical judgment today based on the combination of historical information, prior notes, and today's exam/ interactions. When time spent is documented, it refers only to time spent today by the signer, or if indicated, combined time spent today by collaborating physician/nurse practitioner. (Arelis Oliveira) Collaborating MD Comments Chart reviewed. Case discussed with palliative care REINSPECTOR. Above REINSPECTOR note reviewed and I concur. . (Alfredito Pantoja MD) Arelis Oliveira Jul 20, 2016 11:27 Alfredito Pantoja MD Sep 02, 2016 14:15
[2016-07-20] MEDS: PROPOFOL 1000 MG/100 ML IV SCH (17:39)
[2016-07-20] MEDS ORDERED: SODIUM CHLORID 0.9% 500 ML INJ 500 ML IV SCH (21:30)
[2016-07-20] MEDS: LEVOFLOXACIN 250 MG PREMIX INJ 50 ML IV SCH (22:56)
[2016-07-21] VITALS (22 sets, daily range): BP systolic 89–133; BP diastolic 42–81; PULSE 20–95; RESP 20–22; TEMP 97.9–98.9; O2SAT 94–99
[2016-07-21] MEDS: INSULIN NovoLIN REGULAR SUPPLEMENTAL SCALE SQ SCH ×3 (03:39→21:15)
[2016-07-21 05:21] LABS: BASOPHIL % 0.2 % (0.0-2.0); EOSINOPHIL # 0.7 TH/MM3 (0-0.4); EOSINOPHIL % 4.6 % (0.0-4.0); HEMATOCRIT 28.8 % (35.0-46.0); LYMPH % 8.1 % (9.0-44.0); LYMPHOCYTE # 1.2 TH/MM3 (1.0-4.8); MEAN CORPUSCULAR HEMOGLOBIN 25.2 PG (27.0-34.0); MEAN CORPUSCULAR HGB CONC 31.5 % (32.0-36.0); MONO % 10.6 % (0.0-8.0); NEUT % 76.5 % (16.0-70.0); PLATELET COUNT 201 TH/MM3 (150-450); RED CELL DISTRIBUTION WIDTH 17.9 % (11.6-17.2); WHITE BLOOD COUNT 14.3 TH/MM3 (4.0-11.0)
[2016-07-21 05:36] LABS: HEMO FLAGS AUTO DIFF
[2016-07-21 05:38] LABS: ALT (GPT) 37 U/L (10-53); ANION GAP 5 MEQ/L (5-15); AST (GOT) 26 U/L (15-37); BICARBONATE 35.7 MEQ/L (21.0-32.0); BLOOD UREA NITROGEN 64 MG/DL (7-18); CHLORIDE 105 MEQ/L (98-107); GLOMERULAR FILTRATION RATE 41 ML/MIN (>89); POTASSIUM 3.9 MEQ/L (3.5-5.1); SODIUM (NA) 146 MEQ/L (136-145)
[2016-07-21 05:40] LABS: ALKALINE PHOSPHATASE 102 U/L (45-117); TOTAL BILIRUBIN ADULT 0.4 MG/DL (0.2-1.0)
[2016-07-21] MEDS: methylPREDNISolone SOD SUCC 40 MG/1 ML VIAL IV PUSH SCH ×2 (06:28→20:51)
[2016-07-21 07:44] LABS: BANDS 5 % (0-6); EOSINOPHILS 5 % (0-4); METAMYELOCYTES 3 % (0-1); MYELOCYTES 1 % (0-0); NEUTROPHIL # MANUAL DIFF 11.4 TH/MM3 (1.8-7.7); PLATELET ESTIMATE SMEAR NORMAL (NORMAL); PLATELET MORPHOLOGY ENLARGED (NORMAL); POLYS (SEG NEUTROPHILS) 71 % (16-70); SCAN/DIFF FINAL DIFF MANUAL; WBC DIFF SAMPLE 100
[2016-07-21] MEDS: PANTOPRAZOLE SODIUM 40 MG VIAL IV PUSH SCH (08:34)
[2016-07-21] MEDS: PRAVASTATIN SOD 40 MG TAB PO SCH (08:34)
[2016-07-21] MEDS: DIPYRIDAMOLE/ASPIRIN 200 MG/25 MG CAP PO SCH ×2 (08:34→20:51)
[2016-07-21] MEDS: HEPARIN SODIUM - SQ 10,000 UNITS/ML VIAL SQ SCH ×2 (08:34→20:52)
[2016-07-21] MEDS: ASPIRIN EC 81 MG TABEC PO SCH (08:35)
[2016-07-21] MEDS: CLOTRIMAZOLE 1% CREAM 15 GM TOPICAL SCH ×2 (08:35→20:52)
[2016-07-21] MEDS: FREE WATER G-TUBE SCH ×2 (08:35→20:50)
[2016-07-21] MEDS: RESP: ALBUTEROL 2.5 MG/IPRATROPIUM 0.5 MG NEB (PRN) NEB (08:44)
--- NOTE | 2016-07-21 11:13 | HHI.HCPN ---
Reason for visit a. To assist with evaluation and management of symptoms including: dyspnea, anxiety b. To assist medical decision maker(s) with: better understanding of current medical conditions; weighing benefits/burdens of medical treatment options; making medical treatment decisions. (Arelis Oliveira) Subjective/Interval History Pt seen to follow up on comfort, goals. Pt cont tolerating CPAP trial this am-- has been on for approx 2 hrs at time of my visit, 11/22, 40% fio2. labs today no significant changes WBC 14.3, BUN / creat remain elevated at 64/1.24. GFR 41. Still w adequate UOP. Off of sedation for CPAP trials, nursing indicates pt comfortable prev. on diprivan, currently comfortable off sedation. Examined to visitors present. She is alert, on CPAP. Appears to be tolerating CPAP much better today during my visit than yesterday, no tachypnea observed today. She nods to some yes/no questions though limited ability to communicate due to ET tube. She does follow simple commands, moves all 4 extremities. She nods no to pain. Explained to her ventilator, for CPAP, and that we are working towards weaning her off the ventilator but she is not quite ready yet, she nods yes to this. Advise I will call her daughter Gloria to provide her a medical update, she nods yes to this. No apparent distress appears comfortable during my exam. . (Arelis Oliveira) Advance Directives Living Will: Copy in medical record (document indicates in the presence of a terminal endstage or persistent vegetative condition with no probability of recovery directs life prolonging procedures be withheld and withdrawn. In addition with the same conditions it requests no cardiac resuscitation no mechanical respiration, no blood products no form of surgery or invasive tests no dialysis no antibiotics no artificial nutrition/hydration. It requests that if patient is unable to give directions that family and physicians on her document.) (Arelis Oliveira) Advance Directive Specifics Date completed: Living will dated November 2004 (Arelis Oliveira) Objective Vital Signs Date Time Temp Pulse Resp B/P Pulse Ox O2 Delivery O2 Flow Rate FiO2 07/21/16 10:15 96 40 07/21/16 10:00 95 07/21/16 09:30 40 07/21/16 09:25 96 40 07/21/16 09:05 40 07/21/16 09:04 95 40 07/21/16 08:45 98 40 07/21/16 08:15 40 07/21/16 08:00 90 07/21/16 08:00 98.7 20 20 133/81 98 07/21/16 06:00 65 07/21/16 04:00 40 07/21/16 04:00 66 07/21/16 04:00 98.4 20 20 111/53 97 07/21/16 03:34 96 40 07/21/16 02:00 58 07/21/16 00:30 98 40 07/21/16 00:00 98.8 58 20 89/42 99 07/21/16 00:00 40 07/21/16 00:00 58 07/20/16 22:21 99 40 07/20/16 22:00 62 07/20/16 20:00 99.9 62 20 93/44 96 07/20/16 20:00 40 07/20/16 20:00 62 07/20/16 19:26 97 40 07/20/16 18:00 67 07/20/16 16:00 98.6 69 20 119/53 95 07/20/16 16:00 40 07/20/16 16:00 69 07/20/16 15:29 96 40 07/20/16 14:00 61 07/20/16 12:48 96 40 07/20/16 12:45 40 07/20/16 12:00 67 07/20/16 12:00 98.8 84 20 121/59 95 Intake & Output 07/21/16 07/21/16 07:00 19:00 Intake Total 1567 ml Output Total 600 ml Balance 967 ml IV Total 603 ml Tube Feeding 714 ml Other 250 ml Output Urine Total 600 ml # Bowel Movements 2 Physical Exam CONSTITUTIONAL/GENERAL: This is a frail elderly appearing female on [facility] vent TUBES/LINES/DRAINS: PIV RUE, central line R SC, seay cath, ETT, OGT, SCDS, heel boots, air bed, soft restraints bilateral upper extremities. CARDIOVASCULAR: Regular rate and rhythm, no murmur. Peripheral pulses symmetric. Trace generalized edema to upper extremities, right upper extremity with more edema than left. RESPIRATORY/CHEST: Symmetric, mildly labored respirations, via ET tube, to mechanical vent. Better air movement heard today, scattered rhonchi, crackles bilateral bases. Breath sounds equal bilaterally. GASTROINTESTINAL: Abdomen soft, no apparent tenderness, nondistended. No hepato- splenomegaly, or palpable masses. Bowel sounds present. Tube feedings infusing via OG tube NEUROLOGICAL: Awake . Nods to some yes/no questions, unable to assess orientation, nonverbal due to mechanical vent. Follows simple commands, moves all 4 extremities. PSYCHIATRIC: No obvious anxiety/depression-limited assessment due to ventilator , clinical condition (Arelis Oliveira) Diagnostic Tests Laboratory Laboratory Tests Test 07/18/16 07/19/16 07/20/16 07/21/16 13:00 05:00 04:25 04:45 Blood Gas Puncture Site RT RADIAL Blood Gas Patient Temperature 98.6 Blood Gas HCO3 38 mmol/L (22-26) Blood Gas Base Excess 12.3 mmol/L (-2-2) Blood Gas Oxygen Saturation 92 % (90-100) Arterial Blood pH 7.34 (7.380-7.420) Arterial Blood Partial 73 mmHg (38-42) Pressure CO2 Arterial Blood Partial 84 mmHg Pressure O2 (61-120) Arterial Blood Oxygen Content 14.1 Vol % (12.0-20.0) Arterial Blood 1.4 % (0-4) Carboxyhemoglobin Arterial Blood Methemoglobin 1.2 % (0-2) Blood Gas Hemoglobin 10.8 G/DL (12.0-16.0) Oxygen Delivery Device VENTILATOR Blood Gas Ventilator Setting 10/+5 Blood Gas Inspired Oxygen 40 % White Blood Count 17.4 TH/MM3 14.5 TH/MM3 14.3 TH/MM3 (4.0-11.0) (4.0-11.0) (4.0-11.0) Red Blood Count 3.91 MIL/MM3 3.67 MIL/MM3 3.60 MIL/MM3 (4.00-5.30) (4.00-5.30) (4.00-5.30) Hemoglobin 9.6 GM/DL 9.2 GM/DL 9.1 GM/DL (11.6-15.3) (11.6-15.3) (11.6-15.3) Hematocrit 31.5 % 29.5 % 28.8 % (35.0-46.0) (35.0-46.0) (35.0-46.0) Mean Corpuscular Volume 80.4 FL 80.3 FL 80.0 FL (80.0-100.0) (80.0-100.0) (80.0-100.0) Mean Corpuscular Hemoglobin 24.5 PG 25.0 PG 25.2 PG (27.0-34.0) (27.0-34.0) (27.0-34.0) Mean Corpuscular Hemoglobin 30.4 % 31.2 % 31.5 % Concent (32.0-36.0) (32.0-36.0) (32.0-36.0) Red Cell Distribution Width 17.6 % 17.5 % 17.9 % (11.6-17.2) (11.6-17.2) (11.6-17.2) Platelet Count 189 TH/MM3 182 TH/MM3 201 TH/MM3 (150-450) (150-450) (150-450) Mean Platelet Volume 10.7 FL 10.6 FL 10.6 FL (7.0-11.0) (7.0-11.0) (7.0-11.0) Neutrophils (%) (Auto) 77.4 % 74.7 % 76.5 % (16.0-70.0) (16.0-70.0) (16.0-70.0) Lymphocytes (%) (Auto) 8.8 % 10.2 % 8.1 % (9.0-44.0) (9.0-44.0) (9.0-44.0) Monocytes (%) (Auto) 8.6 % (0.0-8.0) 9.2 % (0.0-8.0) 10.6 % (0.0-8.0) Eosinophils (%) (Auto) 5.1 % (0.0-4.0) 5.8 % (0.0-4.0) 4.6 % (0.0-4.0) Basophils (%) (Auto) 0.1 % (0.0-2.0) 0.1 % (0.0-2.0) 0.2 % (0.0-2.0) Neutrophils # (Auto) 13.5 TH/MM3 10.9 TH/MM3 11.0 TH/MM3 (1.8-7.7) (1.8-7.7) (1.8-7.7) Lymphocytes # (Auto) 1.5 TH/MM3 1.5 TH/MM3 1.2 TH/MM3 (1.0-4.8) (1.0-4.8) (1.0-4.8) Monocytes # (Auto) 1.5 TH/MM3 1.3 TH/MM3 1.5 TH/MM3 (0-0.9) (0-0.9) (0-0.9) Eosinophils # (Auto) 0.9 TH/MM3 0.8 TH/MM3 0.7 TH/MM3 (0-0.4) (0-0.4) (0-0.4) Basophils # (Auto) 0.0 TH/MM3 0.0 TH/MM3 0.0 TH/MM3 (0-0.2) (0-0.2) (0-0.2) CBC Comment AUTO DIFF AUTO DIFF AUTO DIFF Differential Total Cells 100 100 100 Counted Neutrophils % (Manual) 73 % (16-70) 65 % (16-70) 71 % (16-70) Band Neutrophils % 6 % (0-6) 12 % (0-6) 5 % (0-6) Lymphocytes % 8 % (9-44) 5 % (9-44) 10 % (9-44) Monocytes % 10 % (0-8) 11 % (0-8) 5 % (0-8) Eosinophils % 2 % (0-4) 4 % (0-4) 5 % (0-4) Neutrophils # (Manual) 13.9 TH/MM3 11.6 TH/MM3 11.4 TH/MM3 (1.8-7.7) (1.8-7.7) (1.8-7.7) Myelocytes 1 % (0-0) 1 % (0-0) 1 % (0-0) Differential Comment FINAL DIFF FINAL DIFF FINAL DIFF MANUAL MANUAL MANUAL Platelet Estimate NORMAL NORMAL NORMAL (NORMAL) (NORMAL) (NORMAL) Platelet Morphology Comment NORMAL ENLARGED ENLARGED (NORMAL) (NORMAL) (NORMAL) Sodium Level 145 MEQ/L 145 MEQ/L 146 MEQ/L (136-145) (136-145) (136-145) Potassium Level 3.9 MEQ/L 3.9 MEQ/L 3.9 MEQ/L (3.5-5.1) (3.5-5.1) (3.5-5.1) Chloride Level 99 MEQ/L 101 MEQ/L 105 MEQ/L (98-107) (98-107) (98-107) Carbon Dioxide Level 40.6 MEQ/L 37.4 MEQ/L 35.7 MEQ/L (21.0-32.0) (21.0-32.0) (21.0-32.0) Anion Gap 5 MEQ/L (5-15) 7 MEQ/L (5-15) 5 MEQ/L (5-15) Blood Urea Nitrogen 62 MG/DL (7-18) 70 MG/DL (7-18) 64 MG/DL (7-18) Creatinine 1.29 MG/DL 1.33 MG/DL 1.24 MG/DL (0.50-1.00) (0.50-1.00) (0.50-1.00) Estimat Glomerular Filtration 39 ML/MIN (>89) 38 ML/MIN (>89) 41 ML/MIN (>89) Rate Random Glucose 141 MG/DL 142 MG/DL 156 MG/DL (74-106) (74-106) (74-106) Calcium Level 8.4 MG/DL 8.2 MG/DL 8.4 MG/DL (8.5-10.1) (8.5-10.1) (8.5-10.1) Magnesium Level 2.9 MG/DL (1.5-2.5) Metamyelocytes 2 % (0-1) 3 % (0-1) Basophilic Stippling FAINT (NORMAL) Total Bilirubin 0.4 MG/DL 0.4 MG/DL (0.2-1.0) (0.2-1.0) Aspartate Amino Transf 28 U/L (15-37) 26 U/L (15-37) (AST/SGOT) Alanine Aminotransferase 36 U/L (10-53) 37 U/L (10-53) (ALT/SGPT) Alkaline Phosphatase 93 U/L (45-117) 102 U/L (45-117) Total Protein 5.8 GM/DL 5.9 GM/DL (6.4-8.2) (6.4-8.2) Albumin 2.4 GM/DL 2.4 GM/DL (3.4-5.0) (3.4-5.0) (Arelis Oliveira) Result Diagram: 07/21/16 0445 07/21/16 0445 Imaging Last Impressions Chest X-Ray 07/17/16 0000 Signed Impressions: Service Date/Time: Sunday, July 17, 2016 09:00 - CONCLUSION: Right basilar airspace disease suspected.. Alejandro Bejarano MD Procedures 07/12intubated 07/12Right subclavian CVP (Arelis Oliveira) Assessment and Plan Disease Oriented Problem List: (1) COPD with acute exacerbation (2) Chronic diastolic congestive heart failure (3) Acute and chronic respiratory failure with hypercapnia (4) Diabetes mellitus type 2, uncontrolled (5) Anemia (6) IZA (acute kidney injury) Symptom Scale: (1) Anxiety 0-10 Scale: Unable to quantify Comment: Risk for related to intubation, underlying COPD (2) Dyspnea 0-10 Scale: Unable to quantify Comment: COPD, currently on mechanical vent Pertinent Non-Medical Issues Psychosocial:originally from [place] lived in [place] many years. Supported by 3 adult children- 1 in [place], 1 in [place], 1 here locally in [place]. Has lived with her daughter for several years. Spiritual: [employer] Legal:pt currently on [facility] vent unable to participate in decision making, daughter reports she is POA--has 2 other siblings out of state. Per statutes decision making would fall to all 3 adult children in absence of HCS documents. Ethical issues impacting care: Important Contacts Hawa Tsai (Daughter/POA) [phone] grandson Raymond Palomares [phone] . Prognosis This patient was admitted for COPD exacerbation. She has a long history of COPD on oxygen for at least the past several years. She was admitted on 07/09, intubated 07/04 and has remained on mechanical vent since, today is vent day 8. She is currently not tolerating CPAP for long periods, possible may require tracheostomy/PEG tube for ongoing aggressive interventions. Remains high risk for further combination/setbacks. Code Status: Full Code Plan * Legal decision maker:[facility] unable to participate in decision making, daughter reports she is POA--has 2 other siblings out of state. Per statutes decision making would fall to all 3 adult children in absence of HCS documents. Daughter to obtain copies of this documentation, otherwise would need to consult with all 3 children for decision making. ( Patient does have a living will in the chart however this does not include designation of a decision-maker) * Goals: Aggressive for now, as per initial consultation with daughter buttocks and yesterday 07/20/16. I have left a voicemail for her today. Daughter is reported to be POA however in absence of HCS/POA documentation decision-making would fall to all 3 children, daughter to obtain copies of this for us. Otherwise would need to plan to update the other children as well, to determine if they wish to dissipate with decision making. * CODE STATUS: FULL CODE by default, family to talk more about * SYMPTOMS: --anxiety- risk for r/t intubated, hx COPD, dyspnea. Comfortable on CPAP today, sedation held in order to conduct CPAP trials, had been on diprivan for sedation prior, reported comfortable. May benefit from low dose prn benzodiazepine if develops discomfort on ventilator, has Diprivan available when not on CPAP. --dyspnea- admit for SOB, long hx O2 dependent COPD. intubated 07/12, has been intermittently tolerating CPAP weaning trials for extubation, may req. trach/PEG for ongoing tx if aggressive tx desired. +diprivan for sedation on mech vent (held while on CPAP) * Palliative care will continue to follow during hospital course as condition evolves, to assist patient/decision-maker with understanding of medical conditions, weighing benefits/burdens of treatment options, for clarification of goals of treatment. Additionally will assist with any symptoms of palliative concern (Arelis Oliveira) Time Spent Total Floor Time (mins): 15 >50% Counseling/Coord of Care: Yes (discussed with RN, attending) (Arelis Oliveira) Attestation To help prompt me to consider important information that might be impacting today's encounter and assessment, information from prior notes written by myself or my colleagues may have been "brought forward" into today's note. My signature on this note, however, is an attestation that I personally performed the exam, history, and/or decision-making noted today, and, unless otherwise indicated, the interactions with patient, family, and staff as well as the review of records all occurred today. I also attest that the listed assessment and stated plan reflect my best clinical judgment today based on the combination of historical information, prior notes, and today's exam/ interactions. When time spent is documented, it refers only to time spent today by the signer, or if indicated, combined time spent today by collaborating physician/nurse practitioner. (Arelis Oliveira) Collaborating MD Comments Chart reviewed. Case discussed with palliative care CAR FERRIER. Above CAR FERRIER note reviewed and I concur. . (Alfredito Pantoja MD) Arelis Oliveira Jul 21, 2016 11:13 Alfredito Pantoja MD Sep 02, 2016 14:37
--- NOTE | 2016-07-21 14:10 | HHI.CCPN ---
Subjective Remarks/Hospital Course 85 y/o female admitted with worsening sob. She's had difficulty breathing for about a week, with productive cough of yellowish sputum. she reports on and off fever over the past few days.according to ER, she was found to have a O2 sat of 70's at the time of EMS arrival. She is on BiPaP at the time of my evaluation. 07/12 Patient is sedated with Diprivan and intubated. Afebrile. 07/13 No acute events overnight. Sedated with Diprivan and intubated. Afebrile. 07/14 Patient remains sedated and intubated. ABG showed acute resp acidosis on CPAP yesterday. Afebrile. 07/15 No acute events overnight. Did not tolerate CPAP trials yesterday. Sedated and intubated. 07/16 No acute events overnight. Sedated with diprivan and intubated. Afebrile. 07/17 Patient tolerated CPAP trials for 1.5 hr yesterday then became tachypneic. No events overnight. Sedated with Diprivan and intubated. Afebrile. 07/18 Patient remains sedated and intubated. Did not tolerate CPAP trials yesterday. Afebrile 07/19: Remains sedated, orally intubated on mechanical ventilation. Failed C Pap trial today within 1 minute. 07/20: Remains sedated, orally intubated on mechanical ventilation. 07/21: Remains sedated, orally intubated on mechanical ventilation. Feeling C Pap trials when decreasing pressure support. Objective Vital Signs Date Time Temp Pulse Resp B/P Pulse Ox O2 Delivery O2 Flow Rate FiO2 07/21/16 11:27 94 40 07/21/16 10:00 95 07/21/16 08:00 98.7 20 133/81 07/18/16 09:11 Ventilator Intake and Output 07/20/16 07/20/16 07/21/16 08:00 16:00 00:00 Intake Total 421 ml 806 ml 633 ml Output Total 350 ml 750 ml 250 ml Balance 71 ml 56 ml 383 ml Result Diagram: 07/21/16 0445 07/21/16 0445 Imaging Last Impressions Chest X-Ray 07/17/16 0000 Signed Impressions: Service Date/Time: Sunday, July 17, 2016 09:00 - CONCLUSION: Right basilar airspace disease suspected.. Alejandro Bejarano MD Objective Remarks GENERAL: Patient is 85 yo sedated and intubated. SKIN: Warm and dry. HEAD: Normocephalic. EYES: No scleral icterus. No injection or drainage. NECK: Supple, trachea midline. No JVD or lymphadenopathy. Orally intubated. CARDIOVASCULAR: Regular rate and rhythm without murmurs, gallops, or rubs. RESPIRATORY: Breath sounds equal bilaterally. No accessory muscle use. GASTROINTESTINAL: Abdomen soft, non-tender, nondistended. MUSCULOSKELETAL: No cyanosis, or edema. Neuro: Intubated. A/P Problem List: (1) COPD with acute exacerbation ICD Code: J44.1 Status: Acute (2) Diabetes mellitus type 2, uncontrolled ICD Code: E11.9 Status: Chronic (3) Chronic diastolic congestive heart failure ICD Code: I50.32 Status: Chronic Assessment and Plan 1)Acute resp failure on mech ventilation 2)COPD exacerbation 3)Mild IZA 4)Anemia 5)Hx HTN 6)DM 7)Hx CHF 8)Hx CVA Plan Neuro: On Diprivan infusion for sedation , daily sedation vacation. Pulm: Continue with vent support keep sat >92% Bronchodilators, increase Solumedrol to 40mg BID, Diamox 250mg IV x1 on 07/18 ICU vent bundle, patient did not tolerate CPAP trial on 07/20. 07/17 CXR: Right basilar airspace disease CV: Monitor HR and BP keep MAP>65mmHg. On ASA, Pravastatin daily : Monitor renal function, I/O's, electrolytes replacement per protocol. Free H20 250ml Q12, monitor Sodium level. Off IVF Diurese with Lasix 20mg IV1. GI: On Protonix 40mg daily On TF-Glucerna 1.5@ 45ml/hr ID: Continue with abx ( Levaquin) monitor for signs of infections ( Fever, WBC) Strep pneumonia and Legionella Ag negative. 07/12 Sputum cx: Staph Aureus- sensitive to Levaquin. 07/15 Sputum cx: Normal dimple Heme: Monitor CBC Endo: SSI( Medium scale) with accuchecks, DVT/GI prophylaxis - Heparin subQ/ Pantoprazole Consulted palliative care to assist with deciding goals of therapy. There are and discussion with patient's family regarding plan of care including possible need for tracheostomy and PEG tube placement if continued aggressive care desired and patient is not extubated by next week. Lines: Right subclavian CVP placed 07/12 CCT 30 mins D/W Arelis Oliveira palliative care Itz Silver MD Jul 21, 2016 14:10
[2016-07-21] MEDS: PROPOFOL 1000 MG/100 ML IV SCH (16:59)
[2016-07-21] MEDS: LEVOFLOXACIN 250 MG PREMIX INJ 50 ML IV SCH (23:00)
[2016-07-22] VITALS (17 sets, daily range): BP systolic 92–149; BP diastolic 46–91; PULSE 50–72; RESP 14–22; TEMP 98–99.2; O2SAT 94–98
[2016-07-22] MEDS: INSULIN NovoLIN REGULAR SUPPLEMENTAL SCALE SQ SCH ×4 (04:50→23:00)
[2016-07-22] MEDS: PROPOFOL 1000 MG/100 ML IV SCH ×3 (04:51→23:22)
[2016-07-22] MEDS: FREE WATER G-TUBE SCH ×2 (08:17→22:59)
[2016-07-22] MEDS: HEPARIN SODIUM - SQ 10,000 UNITS/ML VIAL SQ SCH ×2 (08:18→22:59)
[2016-07-22] MEDS: DIPYRIDAMOLE/ASPIRIN 200 MG/25 MG CAP PO SCH ×2 (08:18→22:59)
[2016-07-22] MEDS: methylPREDNISolone SOD SUCC 40 MG/1 ML VIAL IV PUSH SCH ×2 (08:18→22:59)
[2016-07-22] MEDS: ASPIRIN EC 81 MG TABEC PO SCH (08:18)
[2016-07-22] MEDS: PRAVASTATIN SOD 40 MG TAB PO SCH (08:18)
[2016-07-22] MEDS: CLOTRIMAZOLE 1% CREAM 15 GM TOPICAL SCH ×2 (09:00→23:00)
[2016-07-22] MEDS: PANTOPRAZOLE SODIUM 40 MG VIAL IV PUSH SCH (11:47)
--- NOTE | 2016-07-22 16:31 | HHI.CCPN ---
Subjective Remarks/Hospital Course 85 y/o female admitted with worsening sob. She's had difficulty breathing for about a week, with productive cough of yellowish sputum. she reports on and off fever over the past few days.according to ER, she was found to have a O2 sat of 70's at the time of EMS arrival. She is on BiPaP at the time of my evaluation. 07/12 Patient is sedated with Diprivan and intubated. Afebrile. 07/13 No acute events overnight. Sedated with Diprivan and intubated. Afebrile. 07/14 Patient remains sedated and intubated. ABG showed acute resp acidosis on CPAP yesterday. Afebrile. 07/15 No acute events overnight. Did not tolerate CPAP trials yesterday. Sedated and intubated. 07/16 No acute events overnight. Sedated with diprivan and intubated. Afebrile. 07/17 Patient tolerated CPAP trials for 1.5 hr yesterday then became tachypneic. No events overnight. Sedated with Diprivan and intubated. Afebrile. 07/18 Patient remains sedated and intubated. Did not tolerate CPAP trials yesterday. Afebrile 07/19: Remains sedated, orally intubated on mechanical ventilation. Failed C Pap trial today within 1 minute. 07/20: Remains sedated, orally intubated on mechanical ventilation. 07/21: Remains sedated, orally intubated on mechanical ventilation. Failing C Pap trials when decreasing pressure support. 07/22: Remains sedated, orally intubated on mechanical ventilation. Daily C Pap trials ongoing. Objective Vital Signs Date Time Temp Pulse Resp B/P Pulse Ox O2 Delivery O2 Flow Rate FiO2 07/22/16 16:00 51 07/22/16 16:00 98.2 20 92/46 98 07/22/16 16:00 40 07/18/16 09:11 Ventilator Intake and Output 07/21/16 07/21/16 07/22/16 08:00 16:00 00:00 Intake Total 934 ml 766 ml 791 ml Output Total 350 ml 550 ml Balance 584 ml 766 ml 241 ml Result Diagram: 07/21/16 0445 07/21/16 0445 Imaging Last Impressions Chest X-Ray 07/17/16 0000 Signed Impressions: Service Date/Time: Sunday, July 17, 2016 09:00 - CONCLUSION: Right basilar airspace disease suspected.. Alejandro Bejarano MD Objective Remarks GENERAL: Patient is 85 yo sedated and intubated. SKIN: Warm and dry. HEAD: Normocephalic. EYES: No scleral icterus. No injection or drainage. NECK: Supple, trachea midline. No JVD or lymphadenopathy. Orally intubated. CARDIOVASCULAR: Regular rate and rhythm without murmurs, gallops, or rubs. RESPIRATORY: Breath sounds equal bilaterally. No accessory muscle use. GASTROINTESTINAL: Abdomen soft, non-tender, nondistended. MUSCULOSKELETAL: No cyanosis, or edema. Neuro: Intubated. A/P Problem List: (1) COPD with acute exacerbation ICD Code: J44.1 Status: Acute (2) Diabetes mellitus type 2, uncontrolled ICD Code: E11.9 Status: Chronic (3) Chronic diastolic congestive heart failure ICD Code: I50.32 Status: Chronic Assessment and Plan 1)Acute resp failure on mech ventilation 2)COPD exacerbation 3)Mild IZA 4)Anemia 5)Hx HTN 6)DM 7)Hx CHF 8)Hx CVA Plan Neuro: On Diprivan infusion for sedation , daily sedation vacation. Pulm: Continue with vent support keep sat >92% Bronchodilators, increase Solumedrol to 40mg BID, Diamox 250mg IV x1 on 07/18 ICU vent bundle, daily C Pap trials. If patient is not extubated will in the next few days will need a tracheostomy if aggressive care desired. 07/17 CXR: Right basilar airspace disease CV: Monitor HR and BP keep MAP>65mmHg. On ASA, Pravastatin daily : Monitor renal function, I/O's, electrolytes replacement per protocol. Free H20 250ml Q12, monitor Sodium level. Off IVF Diurese with Lasix 20mg IV1. GI: On Protonix 40mg daily On TF-Glucerna 1.5@ 45ml/hr ID: Continue with abx ( Levaquin) monitor for signs of infections ( Fever, WBC) Strep pneumonia and Legionella Ag negative. 07/12 Sputum cx: Staph Aureus- sensitive to Levaquin. 07/15 Sputum cx: Normal dimple Heme: Monitor CBC Endo: SSI( Medium scale) with accuchecks, DVT/GI prophylaxis - Heparin subQ/ Pantoprazole Consulted palliative care to assist with deciding goals of therapy. Ongoing discussion with patient's family regarding plan of care including possible need for tracheostomy and PEG tube placement if continued aggressive care desired and patient is not extubated by next week. Lines: Right subclavian CVP placed 07/12 CCT 30 mins D/W Arelis Oliveira palliative care [employer] on 07/21 Itz Winston MD Jul 22, 2016 16:31
[2016-07-22] MEDS: SODIUM CHLORIDE 0.9% FLUSH 5 ML FLUSH IVF PRN (23:00)
[2016-07-22] MEDS: LEVOFLOXACIN 250 MG PREMIX INJ 50 ML IV SCH (23:27)
[2016-07-23] VITALS (19 sets, daily range): BP systolic 94–142; BP diastolic 52–63; PULSE 48–70; RESP 20–57; TEMP 97.8–99; O2SAT 93–100
[2016-07-23] MEDS: INSULIN NovoLIN REGULAR SUPPLEMENTAL SCALE SQ SCH ×4 (04:23→21:25)
[2016-07-23 05:21] LABS: AUTOMATED NEUTROPHIL # 11.4 TH/MM3 (1.8-7.7); BASOPHIL % 0.1 % (0.0-2.0); EOSINOPHIL % 0.4 % (0.0-4.0); LYMPH % 5.3 % (9.0-44.0); LYMPHOCYTE # 0.7 TH/MM3 (1.0-4.8); MEAN CELL VOLUME 80.9 FL (80.0-100.0); MEAN CORPUSCULAR HEMOGLOBIN 25.2 PG (27.0-34.0); MEAN CORPUSCULAR HGB CONC 31.2 % (32.0-36.0); MONO % 3.7 % (0.0-8.0); NEUT % 90.5 % (16.0-70.0); PLATELET COUNT 214 TH/MM3 (150-450); RED BLOOD COUNT 3.34 MIL/MM3 (4.00-5.30); RED CELL DISTRIBUTION WIDTH 17.9 % (11.6-17.2); WHITE BLOOD COUNT 12.6 TH/MM3 (4.0-11.0)
--- NOTE | 2016-07-23 05:22 | RADRPT ---
EXAM DATE/TIME: 07/23/2016 03:15 [facility] COMPARISON: CHEST SINGLE AP, July 17, 2016, 9:00. INDICATIONS : Shortness of breath, possible pulmonary disease. MEDICAL HISTORY : Chronic obstructive pulmonary disease. Congestive heart failure. Emphysema. SURGICAL HISTORY : None. ENCOUNTER: Subsequent ACUITY: 1 week PAIN SCORE: Non-responsive. LOCATION: Bilateral chest FINDINGS: Endotracheal tube tip is 2 cm above the mita. Gastric tube traverses the [id number]. Right sub clavian catheter tip projects over the cavoatrial junction. Patchy areas of infiltrate in the right lower lung stable from prior. Moderate curvature lower thoracic spine towards the left. The heart i s normal in size. CONCLUSION: Stable patchy infiltrates at the right lung base. Cheko Liu MD on July 23, 2016 at 5:14 Board Certified Radiologist. This report was verified electronically.
[2016-07-23 05:26] LABS: HEMO FLAGS AUTO DIFF
[2016-07-23 05:52] LABS: ALT (GPT) 39 U/L (10-53); ANION GAP 6 MEQ/L (5-15); AST (GOT) 26 U/L (15-37); BICARBONATE 34.7 MEQ/L (21.0-32.0); BLOOD UREA NITROGEN 57 MG/DL (7-18); CHLORIDE 106 MEQ/L (98-107); GLOMERULAR FILTRATION RATE 46 ML/MIN (>89); POTASSIUM 4.9 MEQ/L (3.5-5.1); SODIUM (NA) 147 MEQ/L (136-145)
[2016-07-23 06:08] LABS: ALKALINE PHOSPHATASE 97 U/L (45-117); TOTAL BILIRUBIN ADULT 0.4 MG/DL (0.2-1.0)
[2016-07-23 08:07] LABS: EOSINOPHILS 1 % (0-4); METAMYELOCYTES 2 % (0-1); NEUTROPHIL # MANUAL DIFF 11.5 TH/MM3 (1.8-7.7); POLYS (SEG NEUTROPHILS) 89 % (16-70); WBC DIFF SAMPLE 100
[2016-07-23 08:08] LABS: PLATELET ESTIMATE SMEAR NORMAL (NORMAL); PLATELET MORPHOLOGY ENLARGED (NORMAL); SCAN/DIFF FINAL DIFF MANUAL
[2016-07-23] MEDS: FREE WATER G-TUBE SCH ×2 (09:00→21:26)
[2016-07-23] MEDS: methylPREDNISolone SOD SUCC 40 MG/1 ML VIAL IV PUSH SCH ×2 (09:41→17:25)
[2016-07-23] MEDS: PANTOPRAZOLE SODIUM 40 MG VIAL IV PUSH SCH (09:41)
[2016-07-23] MEDS: HEPARIN SODIUM - SQ 10,000 UNITS/ML VIAL SQ SCH ×2 (09:42→21:26)
[2016-07-23] MEDS: PRAVASTATIN SOD 40 MG TAB PO SCH (09:42)
[2016-07-23] MEDS: DIPYRIDAMOLE/ASPIRIN 200 MG/25 MG CAP PO SCH ×2 (09:42→21:26)
[2016-07-23] MEDS: ASPIRIN EC 81 MG TABEC PO SCH (09:42)
[2016-07-23] MEDS: CLOTRIMAZOLE 1% CREAM 15 GM TOPICAL SCH ×2 (09:43→21:27)
[2016-07-23 10:09] LABS: BLOOD GAS BASE EXCESS 6.5 mmol/L (-2-2); BLOOD GAS CARBOXYHEMOGLOBIN 1.8 % (0-4); BLOOD GAS HCO3 31 mmol/L (22-26); BLOOD GAS METHEMOGLOBIN 1.2 % (0-2); BLOOD GAS O2 HGB SATURATION 96 % (90-100); BLOOD GAS OXYGEN CONTENT 12.1 Vol % (12.0-20.0); BLOOD GAS PCO2 50 mmHg (38-42); BLOOD GAS PO2 163 mmHg (61-120); BLOOD GAS TOTAL HGB 8.6 G/DL (12.0-16.0); CRITICAL VALUE NO; OXYGEN DEVICE VENTILATOR; TEMP CORR TO 98.6
[2016-07-23 10:11] LABS: FIO2 40 %
[2016-07-23 10:12] LABS: DRAW SITE RT RADIAL; NUMBER OF ARTERIAL PUNCTURES 1; STAT NO; ULNAR PULSE PRESENT
[2016-07-23] MEDS: PROPOFOL 1000 MG/100 ML IV SCH ×2 (11:11→21:44)
--- NOTE | 2016-07-23 14:04 | HHI.CCPN ---
Subjective Remarks/Hospital Course 85 y/o female admitted with worsening sob. She's had difficulty breathing for about a week, with productive cough of yellowish sputum. she reports on and off fever over the past few days.according to ER, she was found to have a O2 sat of 70's at the time of EMS arrival. She is on BiPaP at the time of my evaluation. 07/12 Patient is sedated with Diprivan and intubated. Afebrile. 07/13 No acute events overnight. Sedated with Diprivan and intubated. Afebrile. 07/14 Patient remains sedated and intubated. ABG showed acute resp acidosis on CPAP yesterday. Afebrile. 07/15 No acute events overnight. Did not tolerate CPAP trials yesterday. Sedated and intubated. 07/16 No acute events overnight. Sedated with diprivan and intubated. Afebrile. 07/17 Patient tolerated CPAP trials for 1.5 hr yesterday then became tachypneic. No events overnight. Sedated with Diprivan and intubated. Afebrile. 07/18 Patient remains sedated and intubated. Did not tolerate CPAP trials yesterday. Afebrile 07/19: Remains sedated, orally intubated on mechanical ventilation. Failed C Pap trial today within 1 minute. 07/20: Remains sedated, orally intubated on mechanical ventilation. 07/21: Remains sedated, orally intubated on mechanical ventilation. Failing C Pap trials when decreasing pressure support. 07/22: Remains sedated, orally intubated on mechanical ventilation. Daily C Pap trials ongoing. 07/23: Sedated, arousable, orally intubated on mechanical ventilation. Failed C Pap trials on decreasing pressure support from +15 2+12 or lower. Tolerating tube feeds Objective Vital Signs Date Time Temp Pulse Resp B/P Pulse Ox O2 Delivery O2 Flow Rate FiO2 07/23/16 12:00 58 07/23/16 12:00 99.0 20 94/52 98 07/23/16 12:00 35 Intake and Output 07/22/16 07/22/16 07/23/16 08:00 16:00 00:00 Intake Total 490 ml 736 ml 745 ml Output Total 450 ml 425 ml 350 ml Balance 40 ml 311 ml 395 ml Result Diagram: 07/23/16 0500 07/23/16 0500 Other Results Laboratory Tests Test 07/23/16 10:00 Blood Gas Puncture Site RT RADIAL Blood Gas Patient Temperature 98.6 Blood Gas HCO3 31 mmol/L (22-26) Blood Gas Base Excess 6.5 mmol/L (-2-2) Blood Gas Oxygen Saturation 96 % (90-100) Arterial Blood pH 7.41 (7.380-7.420) Arterial Blood Partial 50 mmHg (38-42) Pressure CO2 Arterial Blood Partial 163 mmHg Pressure O2 (61-120) Arterial Blood Oxygen Content 12.1 Vol % (12.0-20.0) Arterial Blood 1.8 % (0-4) Carboxyhemoglobin Arterial Blood Methemoglobin 1.2 % (0-2) Blood Gas Hemoglobin 8.6 G/DL (12.0-16.0) Oxygen Delivery Device VENTILATOR Blood Gas Ventilator Setting Blood Gas Inspired Oxygen 40 % Imaging Last Impressions Chest X-Ray 07/17/16 0000 Signed Impressions: Service Date/Time: Sunday, July 17, 2016 09:00 - CONCLUSION: Right basilar airspace disease suspected.. Alejandro Bejarano MD Objective Remarks GENERAL: Patient is 85 yo sedated and intubated. SKIN: Warm and dry. HEAD: Normocephalic. EYES: No scleral icterus. No injection or drainage. NECK: Supple, trachea midline. No JVD or lymphadenopathy. Orally intubated. CARDIOVASCULAR: Regular rate and rhythm without murmurs, gallops, or rubs. RESPIRATORY: Breath sounds equal bilaterally. No accessory muscle use. GASTROINTESTINAL: Abdomen soft, non-tender, nondistended. MUSCULOSKELETAL: No cyanosis, or edema. Neuro: Intubated. A/P Problem List: (1) COPD with acute exacerbation ICD Code: J44.1 Status: Acute (2) Diabetes mellitus type 2, uncontrolled ICD Code: E11.9 Status: Chronic (3) Chronic diastolic congestive heart failure ICD Code: I50.32 Status: Chronic Assessment and Plan 1)[facility] 2)COPD exacerbation 3)Mild IZA 4)Anemia 5)Hx HTN 6)DM 7)Hx CHF 8)Hx CVA Plan Neuro: On Diprivan infusion for sedation , daily sedation vacation. Fentanyl when necessary for pain. Pulm: Continue with vent support keep sat >92% Bronchodilators, increase Solumedrol to 40mg BID, Diamox 250mg IV x1 on 07/18 ICU vent bundle, daily C Pap trials. If patient is not extubated will in the next few days will need a tracheostomy if aggressive care desired. Dr. Karthikeyan estrella from pulmonary medicine consulted per patient's daughter's request for further evaluation of her advanced COPD and respiratory failure. CV: Monitor HR and BP keep MAP>65mmHg. On ASA, Pravastatin daily : Monitor renal function, I/O's, electrolytes replacement per protocol. Free H20 250ml Q12, monitor Sodium level. Off IVF Diurese with Lasix 20mg IV1. GI: On Protonix 40mg daily On TF-Glucerna 1.5@ 45ml/hr ID: Continue with abx ( Levaquin) monitor for signs of infections ( Fever, WBC) Strep pneumonia and Legionella Ag negative. 07/12 Sputum cx: Staph Aureus- sensitive to Levaquin. 07/15 Sputum cx: Normal dimple Heme: Monitor CBC Endo: SSI( Medium scale) with accuchecks, DVT/GI prophylaxis - Heparin subQ/ Pantoprazole Consulted palliative care to assist with deciding goals of therapy. Ongoing discussion with patient's family regarding plan of care including possible need for tracheostomy and PEG tube placement if continued aggressive care desired and patient is not extubated by next week. Lines: Right subclavian CVP placed 07/12 CCT 30 mins D/W Arelis Oliveira palliative care [employer]ER on 07/21 Itz Winston MD Jul 23, 2016 14:04
[2016-07-23 16:04] LABS: BACTERIA, URINE OCC /hpf; BLOOD, URINE TRACE (NEG); GLUCOSE,URINE NEG (NEG); HYALINE CAST, URINE 2 /lpf (RARE); KETONE, URINE NEG (NEG); MUCUS URINE FEW /lpf (OCC); NITRITE,URINE NEG (NEG); SQUAMOUS EPITHELIAL CELL URINE <1 /hpf (0-5); URINE COLOR YELLOW (YELLW/STRAW)
[2016-07-23 16:08] LABS: COMMENT (UR) CATH-CULTURE IND; CULTURE IF INDICATED CATH CULTURE IND
[2016-07-23] MEDS: RESP: ALBUTEROL 2.5 MG/IPRATROPIUM 0.5 MG NEB (SCH) INH (19:39)
[2016-07-24] VITALS (19 sets, daily range): BP systolic 112–150; BP diastolic 56–72; PULSE 63–85; RESP 18–22; TEMP 97.9–99; O2SAT 28–98
[2016-07-24] MEDS: methylPREDNISolone SOD SUCC 40 MG/1 ML VIAL IV PUSH SCH ×5 (00:29→23:47)
[2016-07-24] MEDS: LEVOFLOXACIN 250 MG PREMIX INJ 50 ML IV SCH ×2 (00:29→22:16)
[2016-07-24] MEDS: RESP: ALBUTEROL 2.5 MG/IPRATROPIUM 0.5 MG NEB (SCH) INH ×4 (03:16→21:14)
[2016-07-24 04:46] LABS: AUTOMATED NEUTROPHIL # 11.1 TH/MM3 (1.8-7.7); BASOPHIL % 0.1 % (0.0-2.0); EOSINOPHIL % 0.2 % (0.0-4.0); HEMATOCRIT 27.3 % (35.0-46.0); LYMPH % 7.8 % (9.0-44.0); MEAN CELL VOLUME 80.6 FL (80.0-100.0); MEAN CORPUSCULAR HEMOGLOBIN 25.4 PG (27.0-34.0); MEAN CORPUSCULAR HGB CONC 31.5 % (32.0-36.0); MONO % 6.7 % (0.0-8.0); NEUT % 85.2 % (16.0-70.0); PLATELET COUNT 218 TH/MM3 (150-450); RED BLOOD COUNT 3.39 MIL/MM3 (4.00-5.30); RED CELL DISTRIBUTION WIDTH 17.9 % (11.6-17.2)
[2016-07-24 04:56] LABS: HEMO FLAGS AUTO DIFF
[2016-07-24] MEDS: INSULIN NovoLIN REGULAR SUPPLEMENTAL SCALE SQ SCH ×4 (05:14→22:17)
[2016-07-24] MEDS: PROPOFOL 1000 MG/100 ML IV SCH ×3 (05:14→23:48)
[2016-07-24 05:18] LABS: ALT (GPT) 42 U/L (10-53); ANION GAP 4 MEQ/L (5-15); AST (GOT) 22 U/L (15-37); BICARBONATE 35.3 MEQ/L (21.0-32.0); BLOOD UREA NITROGEN 56 MG/DL (7-18); CHLORIDE 106 MEQ/L (98-107); GLOMERULAR FILTRATION RATE 49 ML/MIN (>89); POTASSIUM 4.4 MEQ/L (3.5-5.1); SODIUM (NA) 145 MEQ/L (136-145)
[2016-07-24 05:20] LABS: ALKALINE PHOSPHATASE 88 U/L (45-117); TOTAL BILIRUBIN ADULT 0.4 MG/DL (0.2-1.0)
[2016-07-24 07:57] LABS: METAMYELOCYTES 2 % (0-1); NEUTROPHIL # MANUAL DIFF 11.6 TH/MM3 (1.8-7.7); POLYS (SEG NEUTROPHILS) 87 % (16-70); SCAN/DIFF FINAL DIFF MANUAL; WBC DIFF SAMPLE 100
[2016-07-24 07:58] LABS: PLATELET ESTIMATE SMEAR NORMAL (NORMAL); PLATELET MORPHOLOGY NORMAL (NORMAL)
[2016-07-24] MEDS: HEPARIN SODIUM - SQ 10,000 UNITS/ML VIAL SQ SCH ×2 (08:27→20:07)
[2016-07-24] MEDS: DIPYRIDAMOLE/ASPIRIN 200 MG/25 MG CAP PO SCH ×2 (08:27→20:06)
[2016-07-24] MEDS: PRAVASTATIN SOD 40 MG TAB PO SCH (08:27)
[2016-07-24] MEDS: PANTOPRAZOLE SODIUM 40 MG VIAL IV PUSH SCH (08:28)
[2016-07-24] MEDS: ASPIRIN EC 81 MG TABEC PO SCH (08:28)
[2016-07-24] MEDS: FREE WATER G-TUBE SCH ×2 (08:28→20:07)
[2016-07-24] MEDS: CLOTRIMAZOLE 1% CREAM 15 GM TOPICAL SCH ×2 (09:00→20:07)
--- NOTE | 2016-07-24 09:03 | MB ---
cc: Brittany BANG M.D. DATE OF CONSULTATION: 07/23/2016. HISTORY OF PRESENT ILLNESS: Ms. Salazar is an 85-year-old white female with severe obstructive lung disease, oxygen-dependent, and a chronic CO2 retainer. She has been compensated as an outpatient but has been chronically ill. She was last hospitalized here in September of 2014 at which time she had acute respiratory failure and COPD as well. During this admission, she has now been intubated for about ten days. She has been failing weaning trials on C-PAP daily. Since I know her as an outpatient and I did speak to her daughter, they have asked me to see her for further input and decision-making regarding additional therapy including the possibility of a tracheostomy. At the time I saw the patient, she was barely arousable. She is on sedation for control of ventilation. She did squeeze my hands though and seemed attempt to open her eyes. Therefore, she is following commands. She looks very weak and debilitated. Initial evaluation included a chest x-ray, which revealed minimal right lower lobe infiltrate. The most recent x-ray was on July 23 with some stable patchy densities at the right base. Her sputum has grown methicillin-sensitive Staph. Urine is negative for Pneumococcus and Legionella. Blood cultures have been negative. The most recent sputum culture on 07/15 actually grew heavy normal dimple. White blood cell count has been elevated from 12-16,000. Her most recent blood gas on ventilator support: pO2 was 163 with a pH 7.4, pCO2 of 50 and that is on 40%. PAST MEDICAL HISTORY: 1. Severe COPD, oxygen-dependent. 2. Hypertension. 3. Diabetes. 4. A prior history of stroke. PAST SURGICAL HISTORY: 1. Hysterectomy. 2. Cataract surgery. ALLERGIES: 1. PENICILLIN. 2. VITAMIN B12. SOCIAL HISTORY: She has a daughter here locally that she lives with who is very supportive. She stopped smoking years ago. There is no alcohol use. PHYSICAL EXAMINATION: GENERAL: Elderly white female in no obvious distress at rest but intubated and sedated. She is following commands and squeezes both hands with equal strength. VITAL SIGNS: 99 degrees, pulse is 60, respirations are 18-22, blood pressure is 100/60, current saturation Is 98%. HEAD, EYES, EARS, NOSE, THROAT: Sclerae pale, anicteric. NECK: No obvious neck vein distension. CHEST: Reveals minimal congestion with some scattered wheezes. HEART: No harsh murmur. No audible S3. ABDOMEN: Abdomen is soft. EXTREMITIES: She has no peripheral edema or calf tenderness. No cyanosis. ASSESSMENT: Mrs. Salazar is an elderly woman with significant COPD, chronic respiratory failure who presents now with superimposed acute respiratory failure probably due to pneumonia. She is failing weaning attempts daily at this point and is quite weak and debilitated. Given the underlying pulmonary condition, the overall prognosis is rather poor. I am going to add routine aerosol treatments, increase her corticosteroid dose for a few days and we will see if we can have any more success at a weaning trial. I will talk to her daughter about the advisability of proceeding with a tracheostomy. I think that might not be in her best interest in light of her age and underlying lung disease and hopefully we can continue to make these weaning efforts and have some success. However if not, we will have to address the issue later this week of whether or not we would provide more aggressive intervention, and in particular, tracheostomy and feeding tube placement. Further diagnostic and/or therapeutic intervention will depend on her ongoing clinical course. RMD ALBERTA Landers/SELVIN /3:40 PM /9:02 AM
[2016-07-24 10:47] LABS: BLOOD GAS BASE EXCESS 3.9 mmol/L (-2-2); BLOOD GAS CARBOXYHEMOGLOBIN 1.6 % (0-4); BLOOD GAS HCO3 30 mmol/L (22-26); BLOOD GAS METHEMOGLOBIN 1.2 % (0-2); BLOOD GAS O2 HGB SATURATION 96 % (90-100); BLOOD GAS OXYGEN CONTENT 13.6 Vol % (12.0-20.0); BLOOD GAS PCO2 62 mmHg (38-42); BLOOD GAS PO2 147 mmHg (61-120); BLOOD GAS TOTAL HGB 9.9 G/DL (12.0-16.0); TEMP CORR TO 98.6
[2016-07-24 10:48] LABS: CRITICAL VALUE YES; OXYGEN DEVICE VENTILATOR
[2016-07-24 10:49] LABS: DRAW SITE LT RADIAL; FIO2 100 %; NUMBER OF ARTERIAL PUNCTURES 1; STAT YES; ULNAR PULSE PRESENT
--- NOTE | 2016-07-24 12:10 | RADRPT ---
EXAM DATE/TIME: 07/24/2016 11:21 [facility] COMPARISON: CHEST SINGLE AP, July 23, 2016, 3:15. INDICATIONS : Desating, Short of breath MEDICAL HISTORY: Chronic obstructive pulmonary disease. Congestive heart failure. SURGICAL HISTORY: None. ENCOUNTER: Subsequent ACUITY: 2 weeks PAIN SCORE: Non-responsive. LOCATION: Bilateral chest FINDINGS: ETT tube, nasogastric tube, central venous catheter are in good position. There is minimal blunting of the right and left costophrenic sulci. There is no alveolar consolidation, pleural effusion, or p neumothorax. CONCLUSION: Overall I think there is better aeration when compared to 07/23/16. There is no pneumothorax. ET tube in good position. Karthikeyan Hansen MD FACR on July 24, 2016 at 12:04 Board Certified Radiologist. This report was verified electronically.
--- NOTE | 2016-07-24 12:45 | HHI.HCPN ---
Reason for visit a. To assist with evaluation and management of symptoms including: dyspnea, anxiety b. To assist medical decision maker(s) with: better understanding of current medical conditions; weighing benefits/burdens of medical treatment options; making medical treatment decisions. Subjective/Interval History Pt seen to follow up on comfort, goals. (Seen earlier at 11:30) -met with daughter approximately 10 minutes at bedside. Patient seen his doctor weight at bedside discussing with patient daughter Hawa. She has continued to have CPAP trials over the weekend though does not appear will be able to medically extubate. Pulmonology Dr. Griffin was consulted over the weekend to assist, he has followed the patient outpatient for some time. CXR today was slight improvement in aeration, per radiologist's read, CXR yesterday=Stable patchy infiltrates at the right lung base. WBC still slightly elevated at 13. BUN is still elevated 56, creatinine 1.06. Urine output remains adequate. Tolerating tube feeding. Vital signs stable. Has remained on Diprivan drip for sedation 18 mics/kilogram/minute. Met briefly with daughter Gloria at bedside. She recalls me from our conversations last week. He has been in communication with patient other siblings out of state, patient's son Travis is actually now in town to help support her with decision making going forward. She has discussed with Dr. griffin just at my arrival regarding transition to comfort focus and possibly hospice services if patient continues to not be able to wean and extubate. I review with her patient living will documentation, patient current condition, hospice roll and services provided. She wishes to discuss further when patient' s son arrives here at the hospital. She or nursing will call me later when he arrives. She discussed with Dr. griffin tentatively deciding by tomorrow if patient is able to medically extubate in transition to comfort versus possible removal of ventilator(withdrawal) in transition to comfort focus. She has already discussed with Dr. griffin changing to DNR status today, he will enter this. We'll plan to meet with family again later today as needed. . Advance Directives Living Will: Copy in medical record (document indicates in the presence of a terminal endstage or persistent vegetative condition with no probability of recovery directs life prolonging procedures be withheld and withdrawn. In addition with the same conditions it requests no cardiac resuscitation no mechanical respiration, no blood products no form of surgery or invasive tests no dialysis no antibiotics no artificial nutrition/hydration. It requests that if patient is unable to give directions that family and physicians on her document.) Advance Directive Specifics Date completed: Living will dated November 2004 Objective Vital Signs Date Time Temp Pulse Resp B/P Pulse Ox O2 Delivery O2 Flow Rate FiO2 07/24/16 11:29 96 70 07/24/16 10:00 65 07/24/16 08:10 40 07/24/16 08:10 96 40 07/24/16 08:00 64 07/24/16 08:00 40 07/24/16 06:00 63 07/24/16 04:15 96 40 07/24/16 04:00 97.9 68 21 119/72 87 07/24/16 04:00 40 07/24/16 04:00 68 07/24/16 02:00 65 07/24/16 01:28 96 40 07/24/16 00:00 67 07/24/16 00:00 40 07/24/16 00:00 98.3 67 20 116/57 96 07/23/16 22:05 96 40 07/23/16 22:00 54 07/23/16 20:00 40 07/23/16 20:00 97.8 59 20 122/56 97 07/23/16 20:00 59 07/23/16 19:39 99 40 07/23/16 18:00 70 07/23/16 16:00 56 07/23/16 16:00 40 07/23/16 16:00 98.7 54 24 98/53 100 07/23/16 14:50 100 40 07/23/16 14:00 51 Intake & Output 07/24/16 07/24/16 07:00 19:00 Intake Total 1647 ml Output Total 900 ml Balance 747 ml IV Total 262 ml Tube Feeding 885 ml Other 500 ml Output Urine Total 900 ml Physical Exam CONSTITUTIONAL/GENERAL: This is a frail elderly appearing female on [facility] vent TUBES/LINES/DRAINS: PIV RUE, central line R SC, seay cath, ETT, OGT, SCDS, heel boots, air bed, soft restraints bilateral upper extremities. CARDIOVASCULAR: Regular rate and rhythm, no murmur. Peripheral pulses symmetric. Trace generalized edema to upper extremities, right upper extremity with more edema than left. RESPIRATORY/CHEST: Symmetric, mildly labored respirations, via ET tube, to mechanical vent. decreased air movement, scattered rhonchi. Breath sounds equal bilaterally. GASTROINTESTINAL: Abdomen soft, no apparent tenderness, nondistended. No hepato- splenomegaly, or palpable masses. Bowel sounds present. Tube feedings infusing via OG tube NEUROLOGICAL: Awake . Eyes open appears to track examiner though does not nod to my questions today. 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 Does localize to touch and move all 4 extremities weakly. Unable to assess orientation, nonverbal due to mechanical vent. PSYCHIATRIC: No obvious anxiety/depression-limited assessment due to ventilator , clinical condition Diagnostic Tests Laboratory Laboratory Tests Test 07/23/16 07/23/16 07/23/16 07/24/16 05:00 10:00 14:40 04:20 White Blood Count 12.6 TH/MM3 13.0 TH/MM3 (4.0-11.0) (4.0-11.0) Red Blood Count 3.34 MIL/MM3 3.39 MIL/MM3 (4.00-5.30) (4.00-5.30) Hemoglobin 8.4 GM/DL 8.6 GM/DL (11.6-15.3) (11.6-15.3) Hematocrit 27.0 % 27.3 % (35.0-46.0) (35.0-46.0) Mean Corpuscular Volume 80.9 FL 80.6 FL (80.0-100.0) (80.0-100.0) Mean Corpuscular Hemoglobin 25.2 PG 25.4 PG (27.0-34.0) (27.0-34.0) Mean Corpuscular Hemoglobin 31.2 % 31.5 % Concent (32.0-36.0) (32.0-36.0) Red Cell Distribution Width 17.9 % 17.9 % (11.6-17.2) (11.6-17.2) Platelet Count 214 TH/MM3 218 TH/MM3 (150-450) (150-450) Mean Platelet Volume 10.7 FL 10.6 FL (7.0-11.0) (7.0-11.0) Neutrophils (%) (Auto) 90.5 % 85.2 % (16.0-70.0) (16.0-70.0) Lymphocytes (%) (Auto) 5.3 % 7.8 % (9.0-44.0) (9.0-44.0) Monocytes (%) (Auto) 3.7 % (0.0-8.0) 6.7 % (0.0-8.0) Eosinophils (%) (Auto) 0.4 % (0.0-4.0) 0.2 % (0.0-4.0) Basophils (%) (Auto) 0.1 % (0.0-2.0) 0.1 % (0.0-2.0) Neutrophils # (Auto) 11.4 TH/MM3 11.1 TH/MM3 (1.8-7.7) (1.8-7.7) Lymphocytes # (Auto) 0.7 TH/MM3 1.0 TH/MM3 (1.0-4.8) (1.0-4.8) Monocytes # (Auto) 0.5 TH/MM3 0.9 TH/MM3 (0-0.9) (0-0.9) Eosinophils # (Auto) 0.0 TH/MM3 0.0 TH/MM3 (0-0.4) (0-0.4) Basophils # (Auto) 0.0 TH/MM3 0.0 TH/MM3 (0-0.2) (0-0.2) CBC Comment AUTO DIFF AUTO DIFF Differential Total Cells 100 100 Counted Neutrophils % (Manual) 89 % (16-70) 87 % (16-70) Lymphocytes % 4 % (9-44) 7 % (9-44) Monocytes % 4 % (0-8) 4 % (0-8) Eosinophils % 1 % (0-4) Neutrophils # (Manual) 11.5 TH/MM3 11.6 TH/MM3 (1.8-7.7) (1.8-7.7) Metamyelocytes 2 % (0-1) 2 % (0-1) Differential Comment FINAL DIFF FINAL DIFF MANUAL MANUAL Platelet Estimate NORMAL NORMAL (NORMAL) (NORMAL) Platelet Morphology Comment ENLARGED NORMAL (NORMAL) (NORMAL) Red Cell Morphology Comment NORMAL (NORMAL) Sodium Level 147 MEQ/L 145 MEQ/L (136-145) (136-145) Potassium Level 4.9 MEQ/L 4.4 MEQ/L (3.5-5.1) (3.5-5.1) Chloride Level 106 MEQ/L 106 MEQ/L (98-107) (98-107) Carbon Dioxide Level 34.7 MEQ/L 35.3 MEQ/L (21.0-32.0) (21.0-32.0) Anion Gap 6 MEQ/L (5-15) 4 MEQ/L (5-15) Blood Urea Nitrogen 57 MG/DL (7-18) 56 MG/DL (7-18) Creatinine 1.12 MG/DL 1.06 MG/DL (0.50-1.00) (0.50-1.00) Estimat Glomerular Filtration 46 ML/MIN (>89) 49 ML/MIN (>89) Rate Random Glucose 254 MG/DL 176 MG/DL (74-106) (74-106) Calcium Level 8.4 MG/DL 8.6 MG/DL (8.5-10.1) (8.5-10.1) Total Bilirubin 0.4 MG/DL 0.4 MG/DL (0.2-1.0) (0.2-1.0) Aspartate Amino Transf 26 U/L (15-37) 22 U/L (15-37) (AST/SGOT) Alanine Aminotransferase 39 U/L (10-53) 42 U/L (10-53) (ALT/SGPT) Alkaline Phosphatase 97 U/L (45-117) 88 U/L (45-117) Total Protein 5.9 GM/DL 5.9 GM/DL (6.4-8.2) (6.4-8.2) Albumin 2.3 GM/DL 2.4 GM/DL (3.4-5.0) (3.4-5.0) Blood Gas Puncture Site RT RADIAL Blood Gas Patient Temperature 98.6 Blood Gas HCO3 31 mmol/L (22-26) Blood Gas Base Excess 6.5 mmol/L (-2-2) Blood Gas Oxygen Saturation 96 % (90-100) Arterial Blood pH 7.41 (7.380-7.420) Arterial Blood Partial 50 mmHg (38-42) Pressure CO2 Arterial Blood Partial 163 mmHg Pressure O2 (61-120) Arterial Blood Oxygen Content 12.1 Vol % (12.0-20.0) Arterial Blood 1.8 % (0-4) Carboxyhemoglobin Arterial Blood Methemoglobin 1.2 % (0-2) Blood Gas Hemoglobin 8.6 G/DL (12.0-16.0) Oxygen Delivery Device VENTILATOR Blood Gas Ventilator Setting Blood Gas Inspired Oxygen 40 % Urine Random Creatinine 59.2 MG/DL Urine Random Sodium 25 MEQ/L Urine Color YELLOW (YELLW/STRAW) Urine Turbidity HAZY (CLEAR) Urine pH 6.0 (5.0-8.5) Urine Specific [place] 1.021 (1.002-1.035) Urine Protein TRACE mg/dL (NEG-TRACE) Urine Glucose (UA) NEG mg/dL (NEG) Urine Ketones NEG mg/dL (NEG) Urine Occult Blood TRACE (NEG) Urine Nitrite NEG (NEG) Urine Bilirubin NEG (NEG) Urine Urobilinogen LESS THAN 2.0 MG/DL (LESS THAN 2.0) Urine Leukocyte Esterase LARGE (NEG) Urine RBC 6 /hpf (0-3) Urine WBC 69 /hpf (0-5) Urine WBC Clumps MANY (NONE) Urine Squamous Epithelial <1 /hpf (0-5) Cells Urine Bacteria OCC /hpf (NONE) Urine Hyaline Casts 2 /lpf (RARE) Urine Mucus FEW /lpf (OCC) Microscopic Urinalysis Comment CATH-CULTURE IND Test 07/24/16 10:38 Blood Gas Puncture Site LT RADIAL Blood Gas Patient Temperature 98.6 Blood Gas HCO3 30 mmol/L (22-26) Blood Gas Base Excess 3.9 mmol/L (-2-2) Blood Gas Oxygen Saturation 96 % (90-100) Arterial Blood pH 7.30 (7.380-7.420) Arterial Blood Partial 62 mmHg (38-42) Pressure CO2 Arterial Blood Partial 147 mmHg Pressure O2 (61-120) Arterial Blood Oxygen Content 13.6 Vol % (12.0-20.0) Arterial Blood 1.6 % (0-4) Carboxyhemoglobin Arterial Blood Methemoglobin 1.2 % (0-2) Blood Gas Hemoglobin 9.9 G/DL (12.0-16.0) Oxygen Delivery Device VENTILATOR Blood Gas Ventilator Setting Blood Gas Inspired Oxygen 100 % Result Diagram: 07/24/1641907/24/16 0420 Microbiology Microbiology Date/Time Procedure Status Source Growth 07/23/16 14:40 Urine Culture - Preliminary Resulted Urine Catheterized Urine Gram Negative [facility] Last Impressions Chest X-Ray 07/23/16 0600 Signed Impressions: Service Date/Time: Saturday, July 23, 2016 03:15 - CONCLUSION: Stable patchy infiltrates at the right lung base. Cheko Liu MD Procedures 07/12intubated 07/12Right subclavian CVP Assessment and Plan Disease Oriented Problem List: (1) COPD with acute exacerbation (2) Chronic diastolic congestive heart failure (3) Acute and chronic respiratory failure with hypercapnia (4) Diabetes mellitus type 2, uncontrolled (5) Anemia (6) IZA (acute kidney injury) Symptom Scale: (1) Anxiety 0-10 Scale: Unable to quantify Comment: Risk for related to intubation, underlying COPD (2) Dyspnea 0-10 Scale: Unable to quantify Comment: COPD, currently on mechanical vent Pertinent Non-Medical Issues Psychosocial:originally from [place] lived in [place] many years. Supported by 3 adult children- 1 in [place], 1 in [place], 1 here locally in [place]. Has lived with her daughter for several years. Spiritual: Caodaism Legal:pt currently on mech vent unable to participate in decision making, daughter reports she is POA--has 2 other siblings out of state. Per statutes decision making would fall to all 3 adult children in absence of HCS documents. Ethical issues impacting care: Important Contacts Hawa Tsai (Daughter/POA) [phone] grandson Raymond Palomares [phone] . Prognosis This patient was admitted for COPD exacerbation. She has a long history of COPD on oxygen for at least the past several years. She was admitted on 07/09, intubated 07/04 and has remained on mechanical vent since, today is vent day 8. She is currently not tolerating CPAP for long periods, possible may require tracheostomy/PEG tube for ongoing aggressive interventions. Remains high risk for further combination/setbacks. Code Status: No Code Plan * Legal decision maker:pt currently on mech vent unable to participate in decision making, daughter reports she is POA--has 2 other siblings out of state. Per statutes decision making would fall to all 3 adult children in absence of HCS documents. Daughter to obtain copies of this documentation, otherwise would need to consult with all 3 children for decision making. ( Patient does have a living will in the chart however this does not include designation of a decision-maker) * Goals: Daughter and son currently discussing transition to comfort focus. They're currently discussing possibility of medical extubation and transition to comfort versus withdrawal in transition to comfort, currently discussing hospice services. Recently today with daughter, awaiting sons arrival later today and meet with both of them. They understand patient has not made significant improvements and may not be able to continue treatment course without tracheostomy, they understand overall prognosis and are considering comfort focus to honor patient treatment preferences. * CODE STATUS: DNR per daughter discussion with Dr. Griffin today * SYMPTOMS: --anxiety- risk for r/t intubated, hx COPD, dyspnea. Comfortable at time of my exam on Diprivan. To prevent has been intermittently held for CPAP trials. May benefit from low dose prn benzodiazepine if develops discomfort on ventilator, has been comfortable on Diprivan today. --dyspnea- admit for SOB, long hx O2 dependent COPD. intubated 07/12, has not been consistently tolerating CPAP weaning trials for extubation, may req. trach/PEG for ongoing tx if aggressive tx desired. Possible transition to comfort and medical extubation versus withdrawal in the coming days. * Palliative care will continue to follow during hospital course as condition evolves, to assist patient/decision-maker with understanding of medical conditions, weighing benefits/burdens of treatment options, for clarification of goals of treatment. Additionally will assist with any symptoms of palliative concern Time Spent >50% Counseling/Coord of Care: Yes (d/w RN, d/w pulmonary Dr Griffin) Attestation To help prompt me to consider important information that might be impacting today's encounter and assessment, information from prior notes written by myself or my colleagues may have been "brought forward" into today's note. My signature on this note, however, is an attestation that I personally performed the exam, history, and/or decision-making noted today, and, unless otherwise indicated, the interactions with patient, family, and staff as well as the review of records all occurred today. I also attest that the listed assessment and stated plan reflect my best clinical judgment today based on the combination of historical information, prior notes, and today's exam/ interactions. When time spent is documented, it refers only to time spent today by the signer, or if indicated, combined time spent today by collaborating physician/nurse practitioner. Arelis Oliveira Jul 24, 2016 12:45
--- NOTE | 2016-07-24 18:58 | HHI.CCPN ---
Subjective Remarks/Hospital Course 85 y/o female admitted with worsening sob. She's had difficulty breathing for about a week, with productive cough of yellowish sputum. she reports on and off fever over the past few days.according to ER, she was found to have a O2 sat of 70's at the time of EMS arrival. She is on BiPaP at the time of my evaluation. 07/12 Patient is sedated with Diprivan and intubated. Afebrile. 07/13 No acute events overnight. Sedated with Diprivan and intubated. Afebrile. 07/14 Patient remains sedated and intubated. ABG showed acute resp acidosis on CPAP yesterday. Afebrile. 07/15 No acute events overnight. Did not tolerate CPAP trials yesterday. Sedated and intubated. 07/16 No acute events overnight. Sedated with diprivan and intubated. Afebrile. 07/17 Patient tolerated CPAP trials for 1.5 hr yesterday then became tachypneic. No events overnight. Sedated with Diprivan and intubated. Afebrile. 07/18 Patient remains sedated and intubated. Did not tolerate CPAP trials yesterday. Afebrile 07/19: Remains sedated, orally intubated on mechanical ventilation. Failed C Pap trial today within 1 minute. 07/20: Remains sedated, orally intubated on mechanical ventilation. 07/21: Remains sedated, orally intubated on mechanical ventilation. Failing C Pap trials when decreasing pressure support. 07/22: Remains sedated, orally intubated on mechanical ventilation. Daily C Pap trials ongoing. 07/23: Sedated, arousable, orally intubated on mechanical ventilation. Failed C Pap trials on decreasing pressure support from +15 2+12 or lower. Tolerating tube feeds 07/24: Sedated, arousable orally intubated on mechanical ventilation. Failing C Pap trials. Objective Vital Signs Date Time Temp Pulse Resp B/P Pulse Ox O2 Delivery O2 Flow Rate FiO2 07/24/16 18:00 68 07/24/16 16:01 95 40 07/24/16 16:00 97.9 18 112/56 Intake and Output 07/23/16 07/23/16 07/24/16 08:00 16:00 00:00 Intake Total 849 ml 338 ml 776 ml Output Total 350 ml 200 ml 450 ml Balance 499 ml 138 ml 326 ml Result Diagram: 07/24/16 0420 07/24/16 0420 Other Results Laboratory Tests Test 07/24/16 10:38 Blood Gas Puncture Site LT RADIAL Blood Gas Patient Temperature 98.6 Blood Gas HCO3 30 mmol/L (22-26) Blood Gas Base Excess 3.9 mmol/L (-2-2) Blood Gas Oxygen Saturation 96 % (90-100) Arterial Blood pH 7.30 (7.380-7.420) Arterial Blood Partial 62 mmHg (38-42) Pressure CO2 Arterial Blood Partial 147 mmHg Pressure O2 (61-120) Arterial Blood Oxygen Content 13.6 Vol % (12.0-20.0) Arterial Blood 1.6 % (0-4) Carboxyhemoglobin Arterial Blood Methemoglobin 1.2 % (0-2) Blood Gas Hemoglobin 9.9 G/DL (12.0-16.0) Oxygen Delivery Device VENTILATOR Blood Gas Ventilator Setting Blood Gas Inspired Oxygen 100 % Imaging Last Impressions Chest X-Ray 07/17/16 0000 Signed Impressions: Service Date/Time: Sunday, July 17, 2016 09:00 - CONCLUSION: Right basilar airspace disease suspected.. Alejandro Bejarano MD Objective Remarks GENERAL: Patient is 85 yo sedated and intubated. SKIN: Warm and dry. HEAD: Normocephalic. EYES: No scleral icterus. No injection or drainage. NECK: Supple, trachea midline. No JVD or lymphadenopathy. Orally intubated. CARDIOVASCULAR: Regular rate and rhythm without murmurs, gallops, or rubs. RESPIRATORY: Breath sounds equal bilaterally. No accessory muscle use. GASTROINTESTINAL: Abdomen soft, non-tender, nondistended. MUSCULOSKELETAL: No cyanosis, or edema. Neuro: Intubated. A/P Problem List: (1) COPD with acute exacerbation ICD Code: J44.1 Status: Acute (2) Diabetes mellitus type 2, uncontrolled ICD Code: E11.9 Status: Chronic (3) Chronic diastolic congestive heart failure ICD Code: I50.32 Status: Chronic Assessment and Plan 1)Acute resp failure on mech ventilation 2)COPD exacerbation 3)Mild IZA 4)Anemia 5)Hx HTN 6)DM 7)Hx CHF 8)Hx CVA Plan Neuro: On Diprivan infusion for sedation , daily sedation vacation. Fentanyl when necessary for pain. Pulm: Continue with vent support keep sat >92% Bronchodilators, increase Solumedrol to 40mg BID, Diamox 250mg IV x1 on 07/18 ICU vent bundle, daily C Pap trials. If patient is not extubated will in the next few days will need a tracheostomy if aggressive care desired. Dr. Karthikeyan estrella from pulmonary medicine consulted per patient's daughter's request for further evaluation of her advanced COPD and respiratory failure. CV: Monitor HR and BP keep MAP>65mmHg. On ASA, Pravastatin daily : Monitor renal function, I/O's, electrolytes replacement per protocol. Free H20 250ml Q12, monitor Sodium level. Off IVF Diuresed with Lasix 20mg IV1. GI: On Protonix 40mg daily On TF-Glucerna 1.5@ 45ml/hr ID: Continue with abx ( Levaquin) monitor for signs of infections ( Fever, WBC) Strep pneumonia and Legionella Ag negative. 07/12 Sputum cx: Staph Aureus- sensitive to Levaquin. 07/15 Sputum cx: Normal dimple Heme: Monitor CBC Endo: SSI( Medium scale) with accuchecks, DVT/GI prophylaxis - Heparin subQ/ Pantoprazole Consulted palliative care to assist with deciding goals of therapy. Discussed with Dr. Karthikeyan estrella on 07/23. Patient's family today decided to make her DNR status as she is not weaning from ventilator and they are considering transition to comfort measures. Lines: Right subclavian CVP placed 07/12 CCT 30 mins D/W Arelis Oliveira palliative care LEAD SIMULATION MODELING ENGINEER on 07/21 Itz Winston MD Jul 24, 2016 18:58
[2016-07-25] VITALS (14 sets, daily range): BP systolic 89–113; BP diastolic 44–56; PULSE 51–70; RESP 20; TEMP 98.1–98.7; O2SAT 68–98
[2016-07-25] MEDS: RESP: ALBUTEROL 2.5 MG/IPRATROPIUM 0.5 MG NEB (SCH) INH ×2 (03:41→08:45)
[2016-07-25] MEDS: methylPREDNISolone SOD SUCC 40 MG/1 ML VIAL IV PUSH SCH ×2 (05:08→11:49)
[2016-07-25] MEDS: INSULIN NovoLIN REGULAR SUPPLEMENTAL SCALE SQ SCH ×2 (05:08→11:49)
[2016-07-25] MEDS: PRAVASTATIN SOD 40 MG TAB PO SCH (08:03)
[2016-07-25] MEDS: CLOTRIMAZOLE 1% CREAM 15 GM TOPICAL SCH (08:03)
[2016-07-25] MEDS: HEPARIN SODIUM - SQ 10,000 UNITS/ML VIAL SQ SCH (08:03)
[2016-07-25] MEDS: ASPIRIN EC 81 MG TABEC PO SCH (08:03)
[2016-07-25] MEDS: FREE WATER G-TUBE SCH (08:03)
[2016-07-25] MEDS: PROPOFOL 1000 MG/100 ML IV SCH (08:03)
[2016-07-25] MEDS: DIPYRIDAMOLE/ASPIRIN 200 MG/25 MG CAP PO SCH (08:03)
--- NOTE | 2016-07-25 09:32 | HHI.CCPN ---
Subjective Remarks/Hospital Course 85 y/o female admitted with worsening sob. She's had difficulty breathing for about a week, with productive cough of yellowish sputum. she reports on and off fever over the past few days.according to ER, she was found to have a O2 sat of 70's at the time of EMS arrival. She is on BiPaP at the time of my evaluation. 07/12 Patient is sedated with Diprivan and intubated. Afebrile. 07/13 No acute events overnight. Sedated with Diprivan and intubated. Afebrile. 07/14 Patient remains sedated and intubated. ABG showed acute resp acidosis on CPAP yesterday. Afebrile. 07/15 No acute events overnight. Did not tolerate CPAP trials yesterday. Sedated and intubated. 07/16 No acute events overnight. Sedated with diprivan and intubated. Afebrile. 07/17 Patient tolerated CPAP trials for 1.5 hr yesterday then became tachypneic. No events overnight. Sedated with Diprivan and intubated. Afebrile. 07/18 Patient remains sedated and intubated. Did not tolerate CPAP trials yesterday. Afebrile 07/19: Remains sedated, orally intubated on mechanical ventilation. Failed C Pap trial today within 1 minute. 07/20: Remains sedated, orally intubated on mechanical ventilation. 07/21: Remains sedated, orally intubated on mechanical ventilation. Failing C Pap trials when decreasing pressure support. 07/22: Remains sedated, orally intubated on mechanical ventilation. Daily C Pap trials ongoing. 07/23: Sedated, arousable, orally intubated on mechanical ventilation. Failed C Pap trials on decreasing pressure support from +15 2+12 or lower. Tolerating tube feeds 07/24: Sedated, arousable orally intubated on mechanical ventilation. Failing C Pap trials. 07/25: Sedated, arousable, orally intubated on mechanical ventilation. C Pap trials ongoing. Objective Vital Signs Date Time Temp Pulse Resp B/P Pulse Ox O2 Delivery O2 Flow Rate FiO2 07/25/16 08:39 97 40 07/25/16 06:00 70 07/25/16 04:00 98.5 20 97/49 Intake and Output 07/24/16 07/24/16 07/25/16 08:00 16:00 00:00 Intake Total 871 ml 725 ml 490 ml Output Total 450 ml 800 ml 400 ml Balance 421 ml -75 ml 90 ml Result Diagram: 07/24/16 0420 07/24/16 0420 Other Results Laboratory Tests Test 07/24/16 10:38 Blood Gas Puncture Site LT RADIAL Blood Gas Patient Temperature 98.6 Blood Gas HCO3 30 mmol/L (22-26) Blood Gas Base Excess 3.9 mmol/L (-2-2) Blood Gas Oxygen Saturation 96 % (90-100) Arterial Blood pH 7.30 (7.380-7.420) Arterial Blood Partial 62 mmHg (38-42) Pressure CO2 Arterial Blood Partial 147 mmHg Pressure O2 (61-120) Arterial Blood Oxygen Content 13.6 Vol % (12.0-20.0) Arterial Blood 1.6 % (0-4) Carboxyhemoglobin Arterial Blood Methemoglobin 1.2 % (0-2) Blood Gas Hemoglobin 9.9 G/DL (12.0-16.0) Oxygen Delivery Device VENTILATOR Blood Gas Ventilator Setting Blood Gas Inspired Oxygen 100 % Imaging Last Impressions Chest X-Ray 07/17/16 0000 Signed Impressions: Service Date/Time: Sunday, July 17, 2016 09:00 - CONCLUSION: Right basilar airspace disease suspected.. Alejandro Bejarano MD Objective Remarks GENERAL: Patient is 85 yo sedated and intubated. SKIN: Warm and dry. HEAD: Normocephalic. EYES: No scleral icterus. No injection or drainage. NECK: Supple, trachea midline. No JVD or lymphadenopathy. Orally intubated. CARDIOVASCULAR: Regular rate and rhythm without murmurs, gallops, or rubs. RESPIRATORY: Breath sounds equal bilaterally. No accessory muscle use. GASTROINTESTINAL: Abdomen soft, non-tender, nondistended. MUSCULOSKELETAL: No cyanosis, or edema. Neuro: Intubated. A/P Problem List: (1) COPD with acute exacerbation ICD Code: J44.1 Status: Acute (2) Diabetes mellitus type 2, uncontrolled ICD Code: E11.9 Status: Chronic (3) Chronic diastolic congestive heart failure ICD Code: I50.32 Status: Chronic Assessment and Plan 1)Acute resp failure on mech ventilation 2)COPD exacerbation 3)Mild IZA 4)Anemia 5)Hx HTN 6)DM 7)Hx CHF 8)Hx CVA Plan Neuro: On Diprivan infusion for sedation , daily sedation vacation. Fentanyl when necessary for pain. Pulm: Continue with vent support keep sat >92% Bronchodilators, Solumedrol 40mg Q6 ICU vent bundle, daily C Pap trials. If patient is not extubated will in the next few days will need a tracheostomy if aggressive care desired. Dr. Karthikeyan estrella from pulmonary medicine consulted per patient's daughter's request for further evaluation of her advanced COPD and respiratory failure. CV: Monitor HR and BP keep MAP>65mmHg. On ASA, Pravastatin daily : Monitor renal function, I/O's, electrolytes replacement per protocol. Free H20 250ml Q12, monitor Sodium level. Off IVF Diuresed with Lasix 20mg IV1. GI: On Protonix 40mg daily On TF-Glucerna 1.5@ 45ml/hr ID: Continue with abx ( Levaquin) monitor for signs of infections ( Fever, WBC) Strep pneumonia and Legionella Ag negative. 07/12 Sputum cx: Staph Aureus- sensitive to Levaquin. 07/15 Sputum cx: Normal dimple Heme: Monitor CBC Endo: SSI( Medium scale) with accuchecks, DVT/GI prophylaxis - Heparin subQ/ Pantoprazole Consulted palliative care to assist with deciding goals of therapy. Discussed with Dr. Karthikeyan estrella on 07/23. Patient's family today decided to make her DNR status as she is not weaning from ventilator and they are considering transition to comfort measures. Lines: Right subclavian CVP placed 07/12 CCT 30 mins D/W Arelis Oliveira palliative care [employer] on 07/21 Itz Winston MD Jul 25, 2016 09:32
[2016-07-25] MEDS: PANTOPRAZOLE SODIUM 40 MG VIAL IV PUSH SCH (10:55)
--- NOTE | 2016-07-25 12:03 | HHI.HCPN ---
Reason for visit a. To assist with evaluation and management of symptoms including: dyspnea, anxiety b. To assist medical decision maker(s) with: better understanding of current medical conditions; weighing benefits/burdens of medical treatment options; making medical treatment decisions. (Stefania Cannon) Subjective/Interval History . Pt seen in [facility] room 524 to follow up on comfort, goals. Currently orally intubated on mechanical ventilation FiO2 40%, PEEP 5, rate 20. Patient continues to have daily CPAP trials, not tolerating. Pulmonology, Dr. Griffin, was consulted over the weekend. He has followed the patient outpatient for some time and the patient/family trusts him. CXR on 07/23/16 showed stable patchy infiltrates at the right lung base. Follow up CXR yesterday showed slight improvement in aeration, per radiologist's read. WBC still slightly elevated at 13 yesterday (07/24/16). Has remained on Diprivan drip for sedation. On 07/24/16: BUN is still elevated 56, creatinine 1.06. 07/23/16: Urine culture growing Escherichia coli, ESBL positive. Patient's daughter (Hawa), son (Dimas) and daughter in law (Jennifer) were at patient's bedside, we had a lengthy conversation in the family conference room. Dimas and Jennifer arrived from [place] to support his sister with medical decision making moving forward. Patient daughter states she had a discussion with Dr. Griffin yesterday regarding transitioning to comfort focused care, possibly hospice if the patient is unable to be weaned and extubated. They family is indicating today that they feel the patient has had enough and after reviewing the patient's written advanced directives they would like to respect their mother's written advanced directives and withdrawal artificial life support later today. Discussed with Dr. Winston and nurse. . Family/friend interactions . Patient's daughter (Hawa), son (Dimas) and daughter in law (Jennifer) were at patient's bedside, we had a lengthy conversation in the family conference room. Left message for patient's daughter (Cony) on her voicemail with Palliative Care contact information-awaiting return phone call. . (Stefania Cannon) Advance Directives Living Will: Copy in medical record (document indicates in the presence of a terminal endstage or persistent vegetative condition with no probability of recovery directs life prolonging procedures be withheld and withdrawn. In addition with the same conditions it requests no cardiac resuscitation no mechanical respiration, no blood products no form of surgery or invasive tests no dialysis no antibiotics no artificial nutrition/hydration. It requests that if patient is unable to give directions that family and physicians on her document.) (Stefania Cannon) Advance Directive Specifics Date completed: Living will dated November 2004 Significant change in goals: After reviewing the patient's written advanced directives and speaking with Dr. Griffin (pulmonology) they would like to respect their mother's written advanced directives and withdrawal artificial life support later today. . (Stefania Cannon) Objective Vital Signs Date Time Temp Pulse Resp B/P Pulse Ox O2 Delivery O2 Flow Rate FiO2 07/25/16 08:39 97 40 07/25/16 06:00 70 07/25/16 04:00 40 07/25/16 04:00 98.5 52 20 97/49 98 07/25/16 04:00 52 07/25/16 03:38 96 40 07/25/16 02:00 64 07/25/16 00:44 95 40 07/25/16 00:00 98.1 66 20 106/53 94 07/25/16 00:00 40 07/25/16 00:00 70 07/24/16 23:19 28 40 07/24/16 22:00 73 07/24/16 20:30 94 40 07/24/16 20:00 99.0 79 22 133/64 92 07/24/16 20:00 40 07/24/16 20:00 79 07/24/16 18:00 68 07/24/16 16:01 95 40 07/24/16 16:00 71 07/24/16 16:00 97.9 72 18 112/56 96 07/24/16 16:00 40 07/24/16 14:00 66 07/24/16 12:00 40 07/24/16 12:00 98.1 85 19 119/58 98 07/24/16 12:00 72 Intake & Output 07/25/16 07/25/16 07:00 19:00 Intake Total 1106 ml Output Total 750 ml Balance 356 ml IV Total 350 ml Tube Feeding 506 ml Other 250 ml Output Urine Total 750 ml # Bowel Movements 2 . Physical Exam CONSTITUTIONAL/GENERAL: This is a frail elderly appearing female on [facility] vent TUBES/LINES/DRAINS: PIV RUE, central line R SC, seay cath, ETT, OGT, SCDS, heel boots, air bed, soft restraints bilateral upper extremities. CARDIOVASCULAR: Regular rate and rhythm, no murmur. Peripheral pulses symmetric. Trace generalized edema to upper extremities, right upper extremity with more edema than left. RESPIRATORY/CHEST: Symmetric, mildly labored respirations, via ET tube, to mechanical vent. Decreased air movement, scattered rhonchi. Breath sounds equal bilaterally. GASTROINTESTINAL: Abdomen soft, no apparent tenderness, nondistended. . Bowel sounds present. Tube feedings infusing via OG tube NEUROLOGICAL: Sedated. Does not respond to verbal stimuli. PSYCHIATRIC: No obvious anxiety/depression-limited assessment due to ventilator , clinical condition. . (Stefania Cannon) Diagnostic Tests Laboratory Laboratory Tests Test 07/23/16 07/23/16 07/23/16 07/24/16 05:00 10:00 14:40 04:20 White Blood Count 12.6 TH/MM3 13.0 TH/MM3 (4.0-11.0) (4.0-11.0) Red Blood Count 3.34 MIL/MM3 3.39 MIL/MM3 (4.00-5.30) (4.00-5.30) Hemoglobin 8.4 GM/DL 8.6 GM/DL (11.6-15.3) (11.6-15.3) Hematocrit 27.0 % 27.3 % (35.0-46.0) (35.0-46.0) Mean Corpuscular Volume 80.9 FL 80.6 FL (80.0-100.0) (80.0-100.0) Mean Corpuscular Hemoglobin 25.2 PG 25.4 PG (27.0-34.0) (27.0-34.0) Mean Corpuscular Hemoglobin 31.2 % 31.5 % Concent (32.0-36.0) (32.0-36.0) Red Cell Distribution Width 17.9 % 17.9 % (11.6-17.2) (11.6-17.2) Platelet Count 214 TH/MM3 218 TH/MM3 (150-450) (150-450) Mean Platelet Volume 10.7 FL 10.6 FL (7.0-11.0) (7.0-11.0) Neutrophils (%) (Auto) 90.5 % 85.2 % (16.0-70.0) (16.0-70.0) Lymphocytes (%) (Auto) 5.3 % 7.8 % (9.0-44.0) (9.0-44.0) Monocytes (%) (Auto) 3.7 % (0.0-8.0) 6.7 % (0.0-8.0) Eosinophils (%) (Auto) 0.4 % (0.0-4.0) 0.2 % (0.0-4.0) Basophils (%) (Auto) 0.1 % (0.0-2.0) 0.1 % (0.0-2.0) Neutrophils # (Auto) 11.4 TH/MM3 11.1 TH/MM3 (1.8-7.7) (1.8-7.7) Lymphocytes # (Auto) 0.7 TH/MM3 1.0 TH/MM3 (1.0-4.8) (1.0-4.8) Monocytes # (Auto) 0.5 TH/MM3 0.9 TH/MM3 (0-0.9) (0-0.9) Eosinophils # (Auto) 0.0 TH/MM3 0.0 TH/MM3 (0-0.4) (0-0.4) Basophils # (Auto) 0.0 TH/MM3 0.0 TH/MM3 (0-0.2) (0-0.2) CBC Comment AUTO DIFF AUTO DIFF Differential Total Cells 100 100 Counted Neutrophils % (Manual) 89 % (16-70) 87 % (16-70) Lymphocytes % 4 % (9-44) 7 % (9-44) Monocytes % 4 % (0-8) 4 % (0-8) Eosinophils % 1 % (0-4) Neutrophils # (Manual) 11.5 TH/MM3 11.6 TH/MM3 (1.8-7.7) (1.8-7.7) Metamyelocytes 2 % (0-1) 2 % (0-1) Differential Comment FINAL DIFF FINAL DIFF MANUAL MANUAL Platelet Estimate NORMAL NORMAL (NORMAL) (NORMAL) Platelet Morphology Comment ENLARGED NORMAL (NORMAL) (NORMAL) Red Cell Morphology Comment NORMAL (NORMAL) Sodium Level 147 MEQ/L 145 MEQ/L (136-145) (136-145) Potassium Level 4.9 MEQ/L 4.4 MEQ/L (3.5-5.1) (3.5-5.1) Chloride Level 106 MEQ/L 106 MEQ/L (98-107) (98-107) Carbon Dioxide Level 34.7 MEQ/L 35.3 MEQ/L (21.0-32.0) (21.0-32.0) Anion Gap 6 MEQ/L (5-15) 4 MEQ/L (5-15) Blood Urea Nitrogen 57 MG/DL (7-18) 56 MG/DL (7-18) Creatinine 1.12 MG/DL 1.06 MG/DL (0.50-1.00) (0.50-1.00) Estimat Glomerular Filtration 46 ML/MIN (>89) 49 ML/MIN (>89) Rate Random Glucose 254 MG/DL 176 MG/DL (74-106) (74-106) Calcium Level 8.4 MG/DL 8.6 MG/DL (8.5-10.1) (8.5-10.1) Total Bilirubin 0.4 MG/DL 0.4 MG/DL (0.2-1.0) (0.2-1.0) Aspartate Amino Transf 26 U/L (15-37) 22 U/L (15-37) (AST/SGOT) Alanine Aminotransferase 39 U/L (10-53) 42 U/L (10-53) (ALT/SGPT) Alkaline Phosphatase 97 U/L (45-117) 88 U/L (45-117) Total Protein 5.9 GM/DL 5.9 GM/DL (6.4-8.2) (6.4-8.2) Albumin 2.3 GM/DL 2.4 GM/DL (3.4-5.0) (3.4-5.0) Blood Gas Puncture Site RT RADIAL Blood Gas Patient Temperature 98.6 Blood Gas HCO3 31 mmol/L (22-26) Blood Gas Base Excess 6.5 mmol/L (-2-2) Blood Gas Oxygen Saturation 96 % (90-100) Arterial Blood pH 7.41 (7.380-7.420) Arterial Blood Partial 50 mmHg (38-42) Pressure CO2 Arterial Blood Partial 163 mmHg Pressure O2 (61-120) Arterial Blood Oxygen Content 12.1 Vol % (12.0-20.0) Arterial Blood 1.8 % (0-4) Carboxyhemoglobin Arterial Blood Methemoglobin 1.2 % (0-2) Blood Gas Hemoglobin 8.6 G/DL (12.0-16.0) Oxygen Delivery Device VENTILATOR Blood Gas Ventilator Setting Blood Gas Inspired Oxygen 40 % Urine Random Creatinine 59.2 MG/DL Urine Random Sodium 25 MEQ/L Urine Color YELLOW (YELLW/STRAW) Urine Turbidity HAZY (CLEAR) Urine pH 6.0 (5.0-8.5) Urine Specific [place] 1.021 (1.002-1.035) Urine Protein TRACE mg/dL (NEG-TRACE) Urine Glucose (UA) NEG mg/dL (NEG) Urine Ketones NEG mg/dL (NEG) Urine Occult Blood TRACE (NEG) Urine Nitrite NEG (NEG) Urine Bilirubin NEG (NEG) Urine Urobilinogen LESS THAN 2.0 MG/DL (LESS THAN 2.0) Urine Leukocyte Esterase LARGE (NEG) Urine RBC 6 /hpf (0-3) Urine WBC 69 /hpf (0-5) Urine WBC Clumps MANY (NONE) Urine Squamous Epithelial <1 /hpf (0-5) Cells Urine Bacteria OCC /hpf (NONE) Urine Hyaline Casts 2 /lpf (RARE) Urine Mucus FEW /lpf (OCC) Microscopic Urinalysis Comment CATH-CULTURE IND Test 07/24/16 10:38 Blood Gas Puncture Site LT RADIAL Blood Gas Patient Temperature 98.6 Blood Gas HCO3 30 mmol/L (22-26) Blood Gas Base Excess 3.9 mmol/L (-2-2) Blood Gas Oxygen Saturation 96 % (90-100) Arterial Blood pH 7.30 (7.380-7.420) Arterial Blood Partial 62 mmHg (38-42) Pressure CO2 Arterial Blood Partial 147 mmHg Pressure O2 (61-120) Arterial Blood Oxygen Content 13.6 Vol % (12.0-20.0) Arterial Blood 1.6 % (0-4) Carboxyhemoglobin Arterial Blood Methemoglobin 1.2 % (0-2) Blood Gas Hemoglobin 9.9 G/DL (12.0-16.0) Oxygen Delivery Device VENTILATOR Blood Gas Ventilator Setting Blood Gas Inspired Oxygen 100 % . (Stefania Cannon) Result Diagram: 07/24/16 0420 07/24/16 0420 Microbiology Microbiology Date/Time Procedure Status Source Growth 07/23/16 14:40 Urine Culture - Preliminary Resulted Urine Catheterized Urine Escherichia Coli Esbl Positive Gram Negative Ramirez . Imaging Last 72 hours Impressions Chest X-Ray 07/24/16 0000 Signed Impressions: Service Date/Time: Sunday, July 24, 2016 11:21 - CONCLUSION: Overall I think there is better aeration when compared to 07/23/16. There is no pneumothorax. ET tube in good position. Karthikeyan Hansen MD FACR Chest X-Ray 07/23/16 0600 Signed Impressions: Service Date/Time: Saturday, July 23, 2016 03:15 - CONCLUSION: Stable patchy infiltrates at the right lung base. Cheko Liu MD . Procedures 07/12intubated 07/12Right subclavian CVP . (Stefania Cannon) Assessment and Plan Disease Oriented Problem List: (1) COPD with acute exacerbation (2) Chronic diastolic congestive heart failure (3) Acute and chronic respiratory failure with hypercapnia (4) Diabetes mellitus type 2, uncontrolled (5) Anemia (6) IZA (acute kidney injury) Symptom Scale: (1) Anxiety 0-10 Scale: Unable to quantify Comment: Risk for related to intubation, underlying COPD (2) Dyspnea 0-10 Scale: Unable to quantify Comment: COPD, currently on mechanical vent Pertinent Non-Medical Issues Psychosocial:originally from [place] lived in [place] many years. Supported by 3 adult children- 1 in [place], 1 in [place], 1 here locally in [place]. Has lived with her daughter for several years. Spiritual: [place] Legal:[facility] unable to participate in decision making, daughter reports she is POA--has 2 other siblings out of state. Per statutes decision making would fall to all 3 adult children in absence of HCS documents. Ethical issues impacting care: Important Contacts Hawa Tsai (Daughter/POA) [phone] grandson Raymond Paloamres [phone] . Prognosis This patient was admitted for COPD exacerbation. She has a long history of COPD on oxygen for at least the past several years. She was admitted on 07/09, intubated 07/04 and has remained on mechanical vent since, today is vent day 8. She is currently not tolerating CPAP for long periods, possible may require tracheostomy/PEG tube for ongoing aggressive interventions. Remains high risk for further combination/setbacks. Code Status: No Code Plan * NO CODE- DNR * Legal decision maker: Pt currently on [facility] vent unable to participate in decision making, daughter reports she is POA--has 2 other siblings out of state. Per statutes decision making would fall to all 3 adult children in absence of HCS documents. (Patient does have a living will in the chart however this does not include designation of a decision-maker) * Goals: After reviewing the patient's written advanced directives and speaking with Dr. Griffin (pulmonology) they would like to respect their mother's written advanced directives and withdrawal artificial life support later today. * SIGNED EXHIBITS ON PATIENT CHART * Exhibit B signed by daughter (Ovi Armenta) and son (Travis). Spoke to patient's third child, daughter Cony, via telephone. She verbalized support of the decision to withdrawal artificial life support stating that they knew "this was coming" and she was appreciative that her mother had completed a living will to give them guidance in making this difficult decision. * Living will can be viewed in patient's EMR. (document indicates in the presence of a terminal endstage or persistent vegetative condition with no probability of recovery directs life prolonging procedures be withheld and withdrawn. In addition with the same conditions it requests no cardiac resuscitation, no mechanical respiration, no blood products, no form of surgery or invasive tests, no dialysis, no antibiotics, no artificial nutrition/ hydration. It requests that if patient is unable to give directions that family and physicians honor this declaration). * Comfort medication orders in computer per Dr. Abraham. * Palliative Care contact information provided to the patient's daughters (Ovi Armenta and Cony). (Stefania Cannon) Attestation To help prompt me to consider important information that might be impacting today's encounter and assessment, information from prior notes written by myself or my colleagues may have been "brought forward" into today's note. My signature on this note, however, is an attestation that I personally performed the exam, history, and/or decision-making noted today, and, unless otherwise indicated, the interactions with patient, family, and staff as well as the review of records all occurred today. I also attest that the listed assessment and stated plan reflect my best clinical judgment today based on the combination of historical information, prior notes, and today's exam/ interactions. When time spent is documented, it refers only to time spent today by the signer, or if indicated, combined time spent today by collaborating physician/nurse practitioner. (Setfania Cannon) Collaborating MD Comments Records reviewed. Pt seen and examined. Agree with CHANEL eval, note, and plan. Family requesting. EXAM unresponsive lungs - rhonchi CV - irregular abdom - soft ext - cool Pt is terminal. Orders written for withdrawal of life support, transition to comfort care. Leigh (Marcela Abraham MD) Stefania Cannon Jul 25, 2016 12:03 Marcela Abraham MD Jul 25, 2016 14:45
[2016-07-25] MEDS ORDERED: MORPHINE SULFATE 8 MG/ML INJ IV PUSH ONE (14:45)
[2016-07-25] MEDS ORDERED: HYOSCYAMINE 0.5 MG/ML AMP IV ONE (14:45)
[2016-07-25] MEDS ORDERED: LORazepam 2 MG/ML VIAL IV ONE ×2 (14:45→15:00)
[2016-07-25] MEDS ORDERED: MORPHINE SULFATE 4 MG/ML INJ IV ONE (15:00)
[2016-07-25] MEDS ORDERED: LORazepam 2 MG/ML VIAL IV PRN ×2 (15:15)
[2016-07-25] MEDS ORDERED: ACETAMINOPHEN 650 MG SUPP PR PRN (15:15)
[2016-07-25] MEDS ORDERED: MORPHINE SULFATE 4 MG/ML INJ IV PRN (15:15)
[2016-07-25] MEDS ORDERED: FUROSEMIDE 20 MG/2 ML VIAL IV PRN (15:15)
[2016-07-25] MEDS ORDERED: BISACODYL 10 MG SUPP PR PRN (15:15)
[2016-07-25] MEDS ORDERED: HYOSCYAMINE 0.5 MG/ML AMP IV PRN (15:15)
[2016-07-25] MEDS ORDERED: LORazepam 2 MG/ML VIAL IVS PRN (15:15)
[2016-07-25] MEDS ORDERED: LORazepam 2 MG/ML VIAL IV SCH (16:00)
[2016-07-25] MEDS ORDERED: MORPHINE SULFATE 4 MG/ML INJ IV SCH (16:00)
--- NOTE | 2016-08-01 22:55 | HHI.DS ---
Summary Note Date of : Jul 25, 2016 Time Of : 1738 Admission Date Jul 10, 2016 at 01:34 Admitting Diagnosis copd exacerbation Diagnosis at Time of : (1) COPD with acute exacerbation ICD Code: J44.1 Diagnosis: Principal Brief History patient is a 85 y/o female who was brought to ER with worsening sob. she says that she's had difficulty breathing for about a week. she has productive cough of yellowish sputum. she reports on and off fever over the past few days.according to ER, she was found to have a O2 sat of 70's at the time of EMS arrival- she was on BiPaP at the time of my evaluation.she was noted to have a rash on the chest and abdomen and she's complaining of itching over these areas. Imaging Last Impressions Chest X-Ray 07/17/16 0000 Signed Impressions: Service Date/Time: Sunday, July 17, 2016 09:00 - CONCLUSION: Right basilar airspace disease suspected.. Alejandro Bejarano MD Hospital Course 07/12 Patient is sedated with Diprivan and intubated. Afebrile. 07/13 No acute events overnight. Sedated with Diprivan and intubated. Afebrile. 07/14 Patient remains sedated and intubated. ABG showed acute resp acidosis on CPAP yesterday. Afebrile. 07/15 No acute events overnight. Did not tolerate CPAP trials yesterday. Sedated and intubated. 07/16 No acute events overnight. Sedated with diprivan and intubated. Afebrile. 07/17 Patient tolerated CPAP trials for 1.5 hr yesterday then became tachypneic. No events overnight. Sedated with Diprivan and intubated. Afebrile. 07/18 Patient remains sedated and intubated. Did not tolerate CPAP trials yesterday. Afebrile 07/19: Remains sedated, orally intubated on mechanical ventilation. Failed C Pap trial today within 1 minute. 07/20: Remains sedated, orally intubated on mechanical ventilation. 07/21: Remains sedated, orally intubated on mechanical ventilation. Failing C Pap trials when decreasing pressure support. 07/22: Remains sedated, orally intubated on mechanical ventilation. Daily C Pap trials ongoing. 07/23: Sedated, arousable, orally intubated on mechanical ventilation. Failed C Pap trials on decreasing pressure support from +15 2+12 or lower. Tolerating tube feeds 07/24: Sedated, arousable orally intubated on mechanical ventilation. Failing C Pap trials. 07/25: Sedated, arousable, orally intubated on mechanical ventilation. C Pap trials ongoing. decision was made to transition to comfort measures. palliative withdraw of care. patient at 17:38 on 07/25. Juan Johnson MD Aug 01, 2016 22:55
== END 2016-07-25 17:38 | disposition expired | DRG 207 ==
LOC: NEPE 22:43 → NEDA 07-10 01:34 → HIMN 07-10 03:20
PROVIDERS: ADMIT Internal Medicine Critical Care Medicine; ATTEND Internal Medicine Critical Care Medicine
PROC: 5A09457 Assistance with Respiratory Ventilation, 24-96 Consecutive Hours, Continuous Positive Airway Pressure (ICD-10-PCS; 2016-07-10)
PROC: 5A1955Z Respiratory Ventilation, Greater than 96 Consecutive Hours (ICD-10-PCS; principal; 2016-07-12)
PROC: 02HV33Z Insertion of Infusion Device into Superior Vena Cava, Percutaneous Approach (ICD-10-PCS; 2016-07-12)
PROC: 0BH17EZ Insertion of Endotracheal Airway into Trachea, Via Natural or Artificial Opening (ICD-10-PCS; 2016-07-12)
DX: J44.1 Chronic obstructive pulmonary disease with (acute) exacerbation (principal); J96.22 Acute and chronic respiratory failure with hypercapnia; N17.9 Acute kidney failure, unspecified; J18.9 Pneumonia, unspecified organism; E87.2 Acidosis; I50.32 Chronic diastolic (congestive) heart failure; E11.65 Type 2 diabetes mellitus with hyperglycemia; E87.5 Hyperkalemia; J45.909 Unspecified asthma, uncomplicated; M19.90 Unspecified osteoarthritis, unspecified site; E78.00 Pure hypercholesterolemia, unspecified; I10 Essential (primary) hypertension; E78.5 Hyperlipidemia, unspecified; R21 Rash and other nonspecific skin eruption; F41.9 Anxiety disorder, unspecified; Z51.5 Encounter for palliative care; D64.9 Anemia, unspecified; Z66 Do not resuscitate; I46.9 Cardiac arrest, cause unspecified; Z86.73 Personal history of transient ischemic attack (TIA), and cerebral infarction without residual deficits; Z99.81 Dependence on supplemental oxygen; Z87.891 Personal history of nicotine dependence
CPT/HCPCS: 31500; 36556; 36600; 71010; 76937; 80048; 80053; 81001; 82550; 82552; 82570; 82805; 82948; 83605; 83735; 83880; 84100; 84132; 84300; 84484; 85007; 85025; 85027; 85610; 85730; 86403; 87040; 87070; 87077; 87086; 87186; 87205; 87449; 87641; 93005; 94002; 94003; 94640; 94667; 94668; 96365; 96375; C9113; J1120; J1644; J1815; J1940; J1956; J1980; J2060; J2270; J2405; J2920; J2930; J3010; J7030; J7040; J7608; P9612